=== PATIENT | female | born 1985 | race Caucasian/White ===

== ENCOUNTER → 2016-12-22 | Outpatient (CLI) | payer OTHER ==
--- NOTE | 2016-12-22 19:37 | CT ---
EXAMINATION TYPE: CT chest wo/w con DATE OF EXAM: 12/22/2016 7:19 PM COMPARISON: NONE HISTORY: History of Lupus. Enlarged lymph nodes seen on CXR per patient CT DLP: 473.6 mGycm Automated exposure control for dose reduction was used. CONTRAST: CT scan of the chest is performed with IV Contrast, patient injected with 100 mL of Omnipaque 300. FINDINGS: The lungs are clear of infiltrate. There is no evidence of a pulmonary mass. There is no pleural effu marianela. Heart size is normal. There is no pericardial effusion. There is no mediastinal adenopathy. There are no hilar masses. The bony thorax is intact. There is no pathologic enhancement. I see no axillary ad enopathy. There are no filling defects in the pulmonary arteries. IMPRESSION: Negative CT scan of the chest. No evidence of adenopathy.
== END | disposition home or self-care (01) ==
LOC: RADCTMAIN 18:51
PROVIDERS: ATTEND Family Medicine
DX: R59.0 Localized enlarged lymph nodes (principal)
CPT/HCPCS: 71270; Q9967

== ENCOUNTER 2017-01-20 19:12 | Emergency (ER) | payer OTHER ==
[2017-01-20 19:24] VITALS: RESP 18
[2017-01-20 20:02] LABS: Appearance,Urine Turbid (Clear); Bilirubin,Urine Negative (Negative); Glucose,Urine (UA) Negative (Negative); Ketones,Urine Trace (Negative); Leukocyte Esterase,Urine Large (Negative); Mucus,Urine Many /hpf; Nitrite,Urine Negative (Negative); PH, Urine 5.5 (5.0-8.0); Particle Count 26079; Protein,Urine 2+ (Negative); RBC,Urine >182 /hpf (0-5); UA Billing (MACRO vs. MICRO) MICRO; Urobilinogen,Urine <2.0 mg/dL (<2.0); WBC,Urine >182 /hpf (0-5)
[2017-01-20 20:04] LABS: Specific Gravity,Urine 1.035 (1.001-1.035)
[2017-01-20] MEDS ORDERED: SODIUM CHLORIDE 0.9% 1,000 ML IV ONE (20:07)
[2017-01-20] MEDS ORDERED: ONDANSETRON 4 MG/2 ML VIAL IVP STA (20:08)
[2017-01-20] MEDS ORDERED: MORPHINE SULFATE 2 MG/ML SYRINGE IVP ONE (20:08)
--- NOTE | 2017-01-20 20:15 | ED ---
Female Urogenital HPI - General Chief complaint: Urogenital Stated complaint: abd/back pain, blood in urine Time Seen by Provider: 01/20/17 19:28 Source: patient, RN notes reviewed Mode of arrival: ambulatory Limitations: no limitations - History of Present Illness Initial comments: Patient is a 31-year-old female presents to the emergency room for evaluation of hematuria and dysuria. Patient states she was diagnosed with a urinary tract infection about a month ago and symptoms improved after antibiotics. Patient states that she began having urinary frequency and burning during urination over the past few days. Patient states today she began with blood in her urine. Patient states she's having pain in her bilateral flank area and in her bladder area. Patient denies any fevers or chills. Patient states she feels slightly nauseous. Patient denies history of STDs. Patient denies any abnormal vaginal discharge or discomfort. Patient denies chest pain or shortness of breath. Patient denies headache or dizziness. Last Menstrual Period: 12/30/16 - Related Data Home Medications Medication Instructions Recorded Confirmed Albuterol Inhaler [Ventolin 2 puff INHALATION RT-Q4H PRN 07/20/14 01/20/17 Inhaler] Acetaminophen [Tylenol] 650 mg PO Q6H PRN 01/20/17 01/20/17 Ondansetron [Zofran ODT] 8 mg PO DAILY PRN 01/20/17 01/20/17 Previous Rx's Medication Instructions Recorded Ciprofloxacin HCl [Cipro] 500 mg PO Q12HR 7 Days 01/20/17 Phenazopyridine HCl [Pyridium] 200 mg PO TID PRN #5 tablet 01/20/17 Allergies Allergy/AdvReac Type Severity Reaction Status Date / Time Sulfa (Sulfonamide AdvReac Rash/Hives Verified 01/20/17 19:58 Antibiotics) Review of Systems ROS Statement: Those systems with pertinent positive or pertinent negative responses have been documented in the HPI. ROS Other: All systems not noted in ROS Statement are negative. Past Medical History Past Medical History: Asthma Additional Past Medical History / Comment(s): OB history: She has had 2 spontaneous abortions and 2 c-sections. 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 Limitations: no limitations General appearance: alert, in no apparent distress Head exam: Present: atraumatic, normocephalic, normal inspection Eye exam: Present: normal appearance ENT exam: Present: normal exam Neck exam: Present: normal inspection Respiratory exam: Present: normal lung sounds bilaterally. Absent: respiratory distress Cardiovascular Exam: Present: regular rate, normal rhythm, normal heart sounds GI/Abdominal exam: Present: soft, tenderness (Tenderness on palpation over suprapubic area), normal bowel sounds. Absent: distended, guarding, rebound, rigid Extremities exam: Present: normal inspection Back exam: Present: normal inspection Neurological exam: Present: alert, oriented X3, CN II-XII intact Psychiatric exam: Present: normal affect, normal mood Skin exam: Present: warm, dry, intact, normal color. Absent: rash Course Vital Signs 01/20/17 01/20/17 19:22 22:10 Temperature 98.8 F 98.5 F Pulse Rate 110 H 79 Respiratory 18 18 Rate Blood Pressure 139/90 120/62 O2 Sat by Pulse 99 99 Oximetry Medical Decision Making - Medical Decision Making Patient is a 31-year-old female presents emergency room for evaluation of dysuria. Urinalysis suspicious for urinary tract infection. Patient given 1 g Rocephin while she was here. Patient will be sent home with Cipro and Pyridium as needed. Advised patient to follow-up with primary care provider for reevaluation 24-48 hours. Advised patient to return for worsening symptoms. Patient states she understands everything that was discussed with her. Case discussed with Dr. Walters. - Lab Data Result diagrams: 01/20/17 20:37 01/20/17 20:37 Lab Results 01/20/17 01/20/17 01/20/17 Range/Units 19:50 19:50 20:37 WBC 12.1 H (3.8-10.6) k/uL RBC 4.35 (3.80-5.40) m/uL Hgb 13.2 (11.4-16.0) gm/dL Hct 39.8 (34.0-46.0) % MCV 91.5 (80.0-100.0) fL MCH 30.3 (25.0-35.0) pg MCHC 33.1 (31.0-37.0) g/dL RDW 12.8 (11.5-15.5) % Plt Count 259 (150-450) k/uL Neutrophils % 73 % Lymphocytes % 18 % Monocytes % 3 % Eosinophils % 4 % Basophils % 1 % Neutrophils # 8.9 H (1.3-7.7) k/uL Lymphocytes # 2.1 (1.0-4.8) k/uL Monocytes # 0.4 (0-1.0) k/uL Eosinophils # 0.5 (0-0.7) k/uL Basophils # 0.1 (0-0.2) k/uL Sodium (137-145) mmol/L Potassium (3.5-5.1) mmol/L Chloride (98-107) mmol/L Carbon Dioxide (22-30) mmol/L Anion Gap mmol/L BUN (7-17) mg/dL Creatinine (0.52-1.04) mg/dL Est GFR (MDRD) Af Amer (>60 ml/min/1.73 sqM) Est GFR (MDRD) Non-Af (>60 ml/min/1.73 sqM) Glucose (74-99) mg/dL Calcium (8.4-10.2) mg/dL Total Bilirubin (0.2-1.3) mg/dL AST (14-36) U/L ALT (9-52) U/L Alkaline Phosphatase (38-126) U/L Total Protein (6.3-8.2) g/dL Albumin (3.5-5.0) g/dL Urine Color Dark Brown Urine Appearance Turbid H (Clear) Urine pH 5.5 (5.0-8.0) Ur Specific [place] 1.035 (1.001-1.035) Urine Protein 2+ H (Negative) Urine Glucose (UA) Negative (Negative) Urine Ketones Trace H (Negative) Urine Blood Large H (Negative) Urine Nitrite Negative (Negative) Urine Bilirubin Negative (Negative) Urine Urobilinogen <2.0 (<2.0) mg/dL Ur Leukocyte Esterase Large H (Negative) Urine RBC >182 H (0-5) /hpf Urine WBC >182 H (0-5) /hpf Urine Mucus Many H (None) /hpf Urine HCG, Qual Not Detected (Not Detectd) 01/20/17 Range/Units 20:37 WBC (3.8-10.6) k/uL RBC (3.80-5.40) m/uL Hgb (11.4-16.0) gm/dL Hct (34.0-46.0) % MCV (80.0-100.0) fL MCH (25.0-35.0) pg MCHC (31.0-37.0) g/dL RDW (11.5-15.5) % Plt Count (150-450) k/uL Neutrophils % % Lymphocytes % % Monocytes % % Eosinophils % % Basophils % % Neutrophils # (1.3-7.7) k/uL Lymphocytes # (1.0-4.8) k/uL Monocytes # (0-1.0) k/uL Eosinophils # (0-0.7) k/uL Basophils # (0-0.2) k/uL Sodium 140 (137-145) mmol/L Potassium 3.9 (3.5-5.1) mmol/L Chloride 106 (98-107) mmol/L Carbon Dioxide 25 (22-30) mmol/L Anion Gap 9 mmol/L BUN 14 (7-17) mg/dL Creatinine 0.84 (0.52-1.04) mg/dL Est GFR (MDRD) Af Amer >60 (>60 ml/min/1.73 sqM) Est GFR (MDRD) Non-Af >60 (>60 ml/min/1.73 sqM) Glucose 85 (74-99) mg/dL Calcium 9.8 (8.4-10.2) mg/dL Total Bilirubin 0.5 (0.2-1.3) mg/dL AST 17 (14-36) U/L ALT 16 (9-52) U/L Alkaline Phosphatase 52 (38-126) U/L Total Protein 7.4 (6.3-8.2) g/dL Albumin 4.4 (3.5-5.0) g/dL Urine Color Urine Appearance (Clear) Urine pH (5.0-8.0) Ur Specific [place] (1.001-1.035) Urine Protein (Negative) Urine Glucose (UA) (Negative) Urine Ketones (Negative) Urine Blood (Negative) Urine Nitrite (Negative) Urine Bilirubin (Negative) Urine Urobilinogen (<2.0) mg/dL Ur Leukocyte Esterase (Negative) Urine RBC (0-5) /hpf Urine WBC (0-5) /hpf Urine Mucus (None) /hpf Urine HCG, Qual (Not Detectd) Disposition Clinical Impression: Urinary tract infection Disposition: HOME SELF-CARE Condition: Good Instructions: Urinary Tract Infection in Women (ED) Additional Instructions: Take antibiotics as directed. Take Tylenol or Motrin as needed for pain. Drink plenty of water. Please follow up with primary care provider in 1-2 days. If any new symptom arises or symptoms worsen, return to ER as soon as possible. Prescriptions: Ciprofloxacin HCl [Cipro] 500 mg PO Q12HR 7 Days Phenazopyridine HCl [Pyridium] 200 mg PO TID PRN #5 tablet PRN Reason: Pain Referrals: Rashi Hermosillo DO [Primary Care Provider] - 1-2 days Time of Disposition: 21:23
[2017-01-20 20:46] LABS: Basophils # (A) 0.1 k/uL (0-0.2); Basophils % (A) 1 %; CH 30.2; CHCM 33.1; Eosinophils # (A) 0.5 k/uL (0-0.7); Eosinophils % (A) 4 %; HCT 39.8 % (34.0-46.0); HDW 2.45; HGB 13.2 gm/dL (11.4-16.0); Luc # (Auto) 0.11; Luc % (Auto) 1; Lymphocytes # (A) 2.1 k/uL (1.0-4.8); Lymphocytes % (A) 18 %; MCH 30.3 pg (25.0-35.0); MCHC 33.1 g/dL (31.0-37.0); MCV 91.5 fL (80.0-100.0); Mean Platelet Volume 7.5; Monocytes # (A) 0.4 k/uL (0-1.0); Monocytes % (A) 3 %; Neutrophils # (A) 8.9 k/uL (1.3-7.7); Neutrophils % (A) 73 %; RBC 4.35 m/uL (3.80-5.40); RDW 12.8 % (11.5-15.5); WBC 12.1 k/uL (3.8-10.6); WBC (Perox) 12.05
[2017-01-20 20:58] LABS: ALT 16 U/L (9-52); AST 17 U/L (14-36); Alkaline Phosphatase 52 U/L (38-126); Anion Gap 9 mmol/L; Blood Urea Nitrogen 14 mg/dL (7-17); Calcium 9.8 mg/dL (8.4-10.2); Carbon Dioxide 25 mmol/L (22-30); Chloride 106 mmol/L (98-107); Glucose 85 mg/dL (74-99); Non-African American GFR(MDRD) >60 (>60 ml/min/1.73 sqM); Potassium 3.9 mmol/L (3.5-5.1); Sodium 140 mmol/L (137-145); Total Bilirubin 0.5 mg/dL (0.2-1.3); Total Protein 7.4 g/dL (6.3-8.2)
[2017-01-20] MEDS ORDERED: PHENAZOPYRIDINE 200 MG TAB PO STA (21:24)
[2017-01-20 22:12] VITALS: BP 120/62; PULSE 79; TEMP 98.5
== END 2017-01-20 22:36 | disposition home or self-care (01) ==
LOC: EC 19:12
DX: N39.0 Urinary tract infection, site not specified (principal); R11.0 Nausea; F17.200 Nicotine dependence, unspecified, uncomplicated; Z88.2 Allergy status to sulfonamides
CPT/HCPCS: 99283; 96365; 96375 ×2; 96361; 36415; 80053; 85025; 81001; 81025; J2405; J0696; J2270; 87086

== ENCOUNTER 2017-03-27 14:40 | Emergency (ER) | payer OTHER ==
[2017-03-27] MEDS ORDERED: RX INFO: IV CONTRAST WAS GIVEN 1 EACH MISC MISCELLANE PRN (15:44)
[2017-03-27] MEDS ORDERED: SODIUM CHLORIDE 0.9% 1,000 ML IV STA (15:44)
[2017-03-27] MEDS ORDERED: ORPHENADRINE 30 MG/ML 2 ML VIAL IVP STA (15:45)
[2017-03-27] MEDS ORDERED: HYDROmorphone 1 MG/ML 1 ML SYRINGE IVP STA (15:45)
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
[2017-03-27 16:32] VITALS: RESP 16
[2017-03-27 16:50] LABS: Appearance,Urine Clear (Clear); Bilirubin,Urine Negative (Negative); Glucose,Urine (UA) Negative (Negative); Ketones,Urine Negative (Negative); Leukocyte Esterase,Urine Negative (Negative); Nitrite,Urine Negative (Negative); Protein,Urine Negative (Negative); Specific Gravity,Urine 1.012 (1.001-1.035); UA Billing (MACRO vs. MICRO) CHEM; Urobilinogen,Urine <2.0 mg/dL (<2.0)
[2017-03-27 16:52] LABS: Basophils # (A) 0.1 k/uL (0-0.2); Basophils % (A) 1 %; CH 30.4; CHCM 34.8; Eosinophils # (A) 0.4 k/uL (0-0.7); Eosinophils % (A) 4 %; HCT 39.9 % (34.0-46.0); HDW 2.63; HGB 14.3 gm/dL (11.4-16.0); Luc # (Auto) 0.16; Luc % (Auto) 2; Lymphocytes # (A) 2.5 k/uL (1.0-4.8); Lymphocytes % (A) 28 %; MCH 31.4 pg (25.0-35.0); MCHC 35.9 g/dL (31.0-37.0); MCV 87.6 fL (80.0-100.0); Mean Platelet Volume 7.2; Monocytes # (A) 0.3 k/uL (0-1.0); Monocytes % (A) 3 %; Neutrophils # (A) 5.6 k/uL (1.3-7.7); Neutrophils % (A) 62 %; RBC 4.56 m/uL (3.80-5.40); RDW 12.2 % (11.5-15.5); WBC (Perox) 9.36
[2017-03-27 17:03] LABS: ALT 22 U/L (9-52); AST 18 U/L (14-36); Alkaline Phosphatase 67 U/L (38-126); Anion Gap 12 mmol/L; Blood Urea Nitrogen 12 mg/dL (7-17); Calcium 10.1 mg/dL (8.4-10.2); Carbon Dioxide 22 mmol/L (22-30); Chloride 104 mmol/L (98-107); Glucose 98 mg/dL (74-99); Non-African American GFR(MDRD) >60 (>60 ml/min/1.73 sqM); Potassium 4.2 mmol/L (3.5-5.1); Sodium 138 mmol/L (137-145); Total Bilirubin 0.4 mg/dL (0.2-1.3); Total Protein 7.2 g/dL (6.3-8.2)
--- NOTE | 2017-03-27 17:45 | CT ---
EXAMINATION TYPE: CT abdomen pelvis w con DATE OF EXAM: 03/27/2017 COMPARISON: 01/06/2014 HISTORY: Patient complains of low back pain and nausea. CT DLP: 1073 mGycm Automated exposure control for dose reduction was used. TECHNIQUE: Helical acquisition of images was performed from the lung bases through the pelvis. CONTRAST: Performed without Oral Contrast and with IV Contrast, patient injected with 100 mL of Omnipaque 300. FINDINGS: Lung bases are clear. There is no pleural effusion. Heart size is normal. Liver spleen pancreas gallbladder appear normal. Bile ducts are not dilated. There is no adrenal mass . Kidneys show satisfactory contrast opacification. There is no hydronephrosis. There is no retroperi toneal adenopathy. There is a 4 mm calcification in the upper pole right kidney. There is no sign of a renal mass. I see no intestinal wall thickening. There are no dilated loops. Bladder distends smoothly. Uterus is anteverted. There is no sign of a pelvic mass. Appendix is not seen. There is no sign of appendiciti s. I see no bony destructive process. There is a small umbilical hernia that contains fat. IMPRESSION: THERE IS CLEARING OF 3 CM RIGHT OVARIAN CYST COMPARED TO LAST EXAM. THERE IS A NEW SMALL NONOBSTRUCT ING CALCULUS IN THE UPPER POLE RIGHT KIDNEY. NO SIGN OF ACUTE ABDOMEN AND PELVIS. APPENDIX IS NOT SEE N.
[2017-03-27] MEDS ORDERED: KETOROLAC 60 MG/2 ML VIAL IM STA (17:55)
[2017-03-27 18:17] VITALS: BP 124/88; PULSE 79; TEMP 98.4
== END 2017-03-27 18:19 | disposition home or self-care (01) ==
LOC: EC 14:40
DX: S39.012A Strain of muscle, fascia and tendon of lower back, initial encounter (principal); G89.29 Other chronic pain; R51 Headache; R11.2 Nausea with vomiting, unspecified; F17.200 Nicotine dependence, unspecified, uncomplicated; Z53.29 Procedure and treatment not carried out because of patient's decision for other reasons; Z88.2 Allergy status to sulfonamides; X58.XXXA Exposure to other specified factors, initial encounter
CPT/HCPCS: 36415; 80053; 85025; 81003; 81025; 74177; 99284; 96374; 96375; J2360; J1170; Q9967

== ENCOUNTER → 2017-11-17 | Outpatient (CLI) | payer OTHER ==
--- NOTE | 2017-11-17 12:03 | ECHOS ---
STRESS ECHOCARDIOGRAM INDICATIONS: Chest pain, passed out. MEDICATIONS: Ventolin, Zofran. BASELINE HEART RATE: 96 BASELINE BLOOD PRESSURE: 161/60 MAXIMUM HEART RATE: 172 MAXIMUM BLOOD PRESSURE: 155/82 85% MPHR: 161 100% MPHR: 189 METS: 11.9 MAXIMUM STAGE REACHED: 4 TOTAL EXERCISE TIME: 10:15 CLINICAL INFORMATION: Patient was exercised for a total period of 10 minutes. A peak heart rate of 172 was achieved. Maximum blood pressure 155/82 mmHg was noted. Resting EKG shows normal sinus rhythm with normal OK interval and QRS duration and normal ST-T waves. No ST-segment depression suggestive of ischemia is noted. The baseline echocardiographic images reveals normal left ventricular chamber size with normal left ventricular systolic function. In the immediate post exercise period a normal increase in the wall thickness and contractility is noted. FINAL IMPRESSION: 1. This stress echocardiographic study is negative for stress-induced ischemia. 2. EKG portion of the stress test is not suggestive of ischemia. 3. Patient's exercise tolerance is normal. MMODL / IJN: [id number] /
== END | disposition home or self-care (01) ==
LOC: RADNMMAIN 09:58
PROVIDERS: ATTEND Family Medicine
DX: R55 Syncope and collapse (principal)
CPT/HCPCS: 93017; 93350

== ENCOUNTER 2017-11-29 07:55 | Emergency (ER) | payer OTHER ==
[2017-11-29] MEDS ORDERED: SODIUM CHLORIDE 0.9% 1,000 ML IV STA ×2 (08:11)
[2017-11-29] MEDS ORDERED: METOCLOPRAMIDE 5 MG/ML 2 ML VIAL IVP STA (08:11)
[2017-11-29] MEDS ORDERED: diphenhydrAMINE 50 MG/ML 1 ML VIAL IVP STA (08:11)
[2017-11-29] MEDS ORDERED: PANTOPRAZOLE 40 MG/10 ML VIAL IVP STA (08:12)
--- NOTE | 2017-11-29 08:36 | ED ---
Nausea/Vomiting/Diarrhea HPI - General Chief complaint: Nausea/Vomiting/Diarrhea Stated complaint: EXPOSED TO NOROVIRUS, VOMITING 24 HOURS Time Seen by Provider: 11/29/17 08:04 Source: patient, RN notes reviewed, old records reviewed Mode of arrival: ambulatory Limitations: no limitations - History of Present Illness Initial comments: This patient is a 32-year-old female presents emergency Department stay chief complaint of nausea and vomiting for the past 24 hours. She reports that her facial family has had similar symptoms however she has not been able to tolerate her oral Zofran and is extremely nauseated and weak and dehydrated. Patient reports that she has had history of GERD, she initially related the symptoms as well as to GERD and gastritis. She reports that she is having some minimal right upper quadrant pain and epigastric pain as well. Patient surgical history includes 3 C-sections. No fever or chills. No diarrhea. She really relates that she's had no travel history. - Related Data Home Medications Medication Instructions Recorded Confirmed Albuterol Inhaler [Ventolin 2 puff INHALATION RT-Q4H PRN 07/20/14 11/29/17 Inhaler] Ondansetron [Zofran ODT] 8 mg PO DAILY PRN 01/20/17 11/29/17 Lansoprazole [Prevacid] 30 mg PO DAILY 11/29/17 11/29/17 Previous Rx's Medication Instructions Recorded Metoclopramide [Reglan] 10 mg PO ACHS #12 tab 11/29/17 Allergies Allergy/AdvReac Type Severity Reaction Status Date / Time Sulfa (Sulfonamide AdvReac Rash/Hives Verified 11/29/17 09:34 Antibiotics) Review of Systems ROS Statement: Those systems with pertinent positive or pertinent negative responses have been documented in the HPI. ROS Other: All systems not noted in ROS Statement are negative. Past Medical History Past Medical History: Asthma Additional Past Medical History / Comment(s): OB history: She has had 2 spontaneous abortions and 2 c-sections. 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 No distress. Limitations: no limitations General appearance: alert, in no apparent distress Head exam: Present: atraumatic, normocephalic, normal inspection Eye exam: Present: normal appearance ENT exam: Present: normal exam, mucous membranes moist Neck exam: Present: normal inspection. Absent: tenderness, meningismus, lymphadenopathy Respiratory exam: Present: normal lung sounds bilaterally. Absent: respiratory distress, wheezes, rales, rhonchi, stridor Cardiovascular Exam: Present: regular rate, normal rhythm, normal heart sounds. Absent: systolic murmur, diastolic murmur, rubs, gallop, clicks GI/Abdominal exam: Present: soft, tenderness (Epigastric tenderness), normal bowel sounds. Absent: distended, guarding, rebound, rigid Extremities exam: Present: normal inspection, full ROM, normal capillary refill. Absent: tenderness, pedal edema, joint swelling, calf tenderness Back exam: Present: normal inspection Neurological exam: Present: alert, oriented X3, CN II-XII intact Psychiatric exam: Present: normal affect, normal mood Course Vital Signs 11/29/17 07:59 Temperature 97.5 F L Pulse Rate 104 H Respiratory 18 Rate Blood Pressure 138/84 O2 Sat by Pulse 100 Oximetry Medical Decision Making - Medical Decision Making This patient is a 32-year-old female presents midsternal with 2 days of vomiting. She worsens mild epigastric tenderness. Patient was given IV fluids and lab work obtained. She also reports that her family members had similar symptoms over the past week. At this time patient's lab work was reviewed and are all. She is in Protonix and nausea medication. She reports that she is feeling better after receiving IV fluids. She states that she has no pain at this time. Discussed patient is a viral gastroenteritis. Discussed that she can take nausea medication and have a bland diet. Patient understands treatment plan and return parameters were discussed. - Lab Data Result diagrams: 11/29/17 08:20 11/29/17 08:20 Lab Results 11/29/17 11/29/17 11/29/17 Range/Units 08:20 08:20 08:20 WBC 9.8 (3.8-10.6) k/uL RBC 4.97 (3.80-5.40) m/uL Hgb 14.7 (11.4-16.0) gm/dL Hct 45.0 (34.0-46.0) % MCV 90.6 (80.0-100.0) fL MCH 29.6 (25.0-35.0) pg MCHC 32.6 (31.0-37.0) g/dL RDW 12.2 (11.5-15.5) % Plt Count 275 (150-450) k/uL Neutrophils % 88 % Lymphocytes % 5 % Monocytes % 3 % Eosinophils % 4 % Basophils % 0 % Neutrophils # 8.6 H (1.3-7.7) k/uL Lymphocytes # 0.5 L (1.0-4.8) k/uL Monocytes # 0.3 (0-1.0) k/uL Eosinophils # 0.4 (0-0.7) k/uL Basophils # 0.0 (0-0.2) k/uL Sodium 141 (137-145) mmol/L Potassium 4.2 (3.5-5.1) mmol/L Chloride 106 (98-107) mmol/L Carbon Dioxide 22 (22-30) mmol/L Anion Gap 13 mmol/L BUN 13 (7-17) mg/dL Creatinine 0.74 (0.52-1.04) mg/dL Est GFR (MDRD) Af Amer >60 (>60 ml/min/1.73 sqM) Est GFR (MDRD) Non-Af >60 (>60 ml/min/1.73 sqM) Glucose 99 (74-99) mg/dL Calcium 9.9 (8.4-10.2) mg/dL Total Bilirubin 1.1 (0.2-1.3) mg/dL AST 16 (14-36) U/L ALT 19 (9-52) U/L Alkaline Phosphatase 65 (38-126) U/L Total Protein 7.3 (6.3-8.2) g/dL Albumin 4.5 (3.5-5.0) g/dL Amylase 44 (30-110) U/L Lipase 63 (23-300) U/L Urine Color Yellow Urine Appearance Cloudy H (Clear) Urine pH 7.0 (5.0-8.0) Ur Specific [place] 1.020 (1.001-1.035) Urine Protein Trace H (Negative) Urine Glucose (UA) Negative (Negative) Urine Ketones Negative (Negative) Urine Blood Negative (Negative) Urine Nitrite Negative (Negative) Urine Bilirubin Negative (Negative) Urine Urobilinogen <2.0 (<2.0) mg/dL Ur Leukocyte Esterase Negative (Negative) Urine RBC 1 (0-5) /hpf Urine WBC 2 (0-5) /hpf Ur Squamous Epith Cells 15 H (0-4) /hpf Urine Bacteria Few H (None) /hpf Urine Mucus Occasional H (None) /hpf Urine HCG, Qual (Not Detectd) 11/29/17 Range/Units 08:20 WBC (3.8-10.6) k/uL RBC (3.80-5.40) m/uL Hgb (11.4-16.0) gm/dL Hct (34.0-46.0) % MCV (80.0-100.0) fL MCH (25.0-35.0) pg MCHC (31.0-37.0) g/dL RDW (11.5-15.5) % Plt Count (150-450) k/uL Neutrophils % % Lymphocytes % % Monocytes % % Eosinophils % % Basophils % % Neutrophils # (1.3-7.7) k/uL Lymphocytes # (1.0-4.8) k/uL Monocytes # (0-1.0) k/uL Eosinophils # (0-0.7) k/uL Basophils # (0-0.2) k/uL Sodium (137-145) mmol/L Potassium (3.5-5.1) mmol/L Chloride (98-107) mmol/L Carbon Dioxide (22-30) mmol/L Anion Gap mmol/L BUN (7-17) mg/dL Creatinine (0.52-1.04) mg/dL Est GFR (MDRD) Af Amer (>60 ml/min/1.73 sqM) Est GFR (MDRD) Non-Af (>60 ml/min/1.73 sqM) Glucose (74-99) mg/dL Calcium (8.4-10.2) mg/dL Total Bilirubin (0.2-1.3) mg/dL AST (14-36) U/L ALT (9-52) U/L Alkaline Phosphatase (38-126) U/L Total Protein (6.3-8.2) g/dL Albumin (3.5-5.0) g/dL Amylase (30-110) U/L Lipase (23-300) U/L Urine Color Urine Appearance (Clear) Urine pH (5.0-8.0) Ur Specific [place] (1.001-1.035) Urine Protein (Negative) Urine Glucose (UA) (Negative) Urine Ketones (Negative) Urine Blood (Negative) Urine Nitrite (Negative) Urine Bilirubin (Negative) Urine Urobilinogen (<2.0) mg/dL Ur Leukocyte Esterase (Negative) Urine RBC (0-5) /hpf Urine WBC (0-5) /hpf Ur Squamous Epith Cells (0-4) /hpf Urine Bacteria (None) /hpf Urine Mucus (None) /hpf Urine HCG, Qual Not Detected (Not Detectd) Disposition Clinical Impression: Gastroenteritis, Dehydration Disposition: HOME SELF-CARE Condition: Good Instructions: Acute Nausea and Vomiting (ED) Additional Instructions: Patient advised to have a bland diet for the next 24 hours. Sickle bananas, rice, applesauce and toast. Patient should encourage fluid intake. Return to the emergency department if any alarming signs or symptoms occur. Prescriptions: Metoclopramide [Reglan] 10 mg PO ACHS #12 tab Referrals: Rashi Hermosillo DO [Primary Care Provider] - 1-2 days Time of Disposition: 10:22
[2017-11-29 08:37] LABS: Basophils % (A) 0 %; Eosinophils # (A) 0.4 k/uL (0-0.7); Eosinophils % (A) 4 %; HGB 14.7 gm/dL (11.4-16.0); Lymphocytes # (A) 0.5 k/uL (1.0-4.8); Lymphocytes % (A) 5 %; MCH 29.6 pg (25.0-35.0); MCHC 32.6 g/dL (31.0-37.0); MCV 90.6 fL (80.0-100.0); Mean Platelet Volume 7.5; Monocytes # (A) 0.3 k/uL (0-1.0); Monocytes % (A) 3 %; Neutrophils # (A) 8.6 k/uL (1.3-7.7); Neutrophils % (A) 88 %; Platelet Count 275 k/uL (150-450); RBC 4.97 m/uL (3.80-5.40); RDW 12.2 % (11.5-15.5); WBC 9.8 k/uL (3.8-10.6)
[2017-11-29 08:39] LABS: Appearance,Urine Cloudy (Clear); Bacteria,Urine Few /hpf; Bilirubin,Urine Negative (Negative); Blood,Urine Negative (Negative); Color,Urine Yellow; Glucose,Urine (UA) Negative (Negative); Ketones,Urine Negative (Negative); Leukocyte Esterase,Urine Negative (Negative); Mucus,Urine Occasional /hpf; Protein,Urine Trace (Negative); RBC,Urine 1 /hpf (0-5); Squamous Epithelial Cell,Urine 15 /hpf (0-4); Urobilinogen,Urine <2.0 mg/dL (<2.0); WBC,Urine 2 /hpf (0-5)
[2017-11-29 08:42] LABS: ALT 19 U/L (9-52); AST 16 U/L (14-36); Albumin 4.5 g/dL (3.5-5.0); Alkaline Phosphatase 65 U/L (38-126); Amylase 44 U/L (30-110); Anion Gap 13 mmol/L; Blood Urea Nitrogen 13 mg/dL (7-17); Calcium 9.9 mg/dL (8.4-10.2); Carbon Dioxide 22 mmol/L (22-30); Chloride 106 mmol/L (98-107); Glucose 99 mg/dL (74-99); Lipase 63 U/L (23-300); Potassium 4.2 mmol/L (3.5-5.1); Sodium 141 mmol/L (137-145); Total Bilirubin 1.1 mg/dL (0.2-1.3); Total Protein 7.3 g/dL (6.3-8.2)
[2017-11-29] MEDS ORDERED: SODIUM CHLORIDE 0.9% 500 ML IV ONE (09:34)
--- NOTE | 2017-11-29 10:14 | XR ---
EXAMINATION TYPE: XR KUB DATE OF EXAM: 11/29/2017 COMPARISON: NONE INDICATION: Pain vomiting TECHNIQUE: Single view abdomen upright view 2 images FINDINGS: There is a normal bowel gas pattern. No suspicious air-fluid levels or differential air-fluid levels are present. No free air under diaphr agms is evident. Some fecal debris is in the proximal descending colon. Psoas margins are normal. No organomegaly is present. IMPRESSION: 1. Unremarkable Abdomen
[2017-11-29 10:36] VITALS: BP 128/68; PULSE 90; RESP 16; TEMP 97.9
== END 2017-11-29 10:35 | disposition home or self-care (01) ==
LOC: EC 07:55
DX: K52.9 Noninfective gastroenteritis and colitis, unspecified (principal); E86.0 Dehydration; F17.200 Nicotine dependence, unspecified, uncomplicated; Z86.14 Personal history of Methicillin resistant Staphylococcus aureus infection; Z79.899 Other long term (current) drug therapy; Z88.2 Allergy status to sulfonamides
CPT/HCPCS: 36415; 80053; 82150; 83690; 85025; 81001; 81025; 74018; 99284; 96374; 96375 ×2; 96361 ×2; J1200; J2765; C9113

== ENCOUNTER 2018-02-04 12:01 | Day surgery (SDC) | payer OTHER ==
[2018-02-02 12:39] VITALS: BMI 25.8
--- NOTE | 2018-02-03 21:12 | P.GSHP ---
History of Present Illness H&P Date: 02/04/18 CHIEF COMPLAINT: Cholecystitis HISTORY OF PRESENT ILLNESS: The patient is a 32-year-old female who presents with history of epigastric including right upper quadrant abdominal pain. She underwent diagnostic studies for her gallbladder. Separately her clinical picture was consistent with cholecystitis. Now she presents for surgical intervention. PAST MEDICAL HISTORY: Please see list PAST SURGICAL HISTORY: Please see list MEDICATIONS: Please see list ALLERGIES: See list. SOCIAL HISTORY: Recent tobacco use FAMILY HISTORY: Pertinent for gallbladder disease REVIEW OF ORGAN SYSTEMS: CONSTITUTIONAL: No reports of fevers or chills. HEENT: Denies any troubles with the vision or hearing. PHYSICAL EXAM: VITAL SIGNS: Afebrile vital signs stable GENERAL: Well-developed pleasant in no acute distress. HEENT: No scleral icterus. Extraocular movements grossly intact. Moist buccal mucosa. NECK: Supple without lymphadenopathy. CHEST: Unlabored respirations. Equal bilateral excursions. CARDIOVASCULAR: Regular rate regular rhythm rhythm. Distal 2+ pulses. ABDOMEN: Soft, nondistended. Tender along the epigastrium and right upper quadrant. MUSCULOSKELETAL: No clubbing, cyanosis, or edema. NEURO: Cranial nerves II to XII within normal limits. No focal or lateralizing signs. PSYCH: Alert and oriented to person, place and time. ASSESSMENT: 1. Epigastric and right upper quadrant abdominal pain 2. Chronic cholecystitis PLAN: 1. Will need a robotic cholecystectomy possible open. Benefits and risks were described. 2. Heparin for DVT prophylaxis 5000 units. 3. Antibiotic prophylaxis. Past Medical History Past Medical History: Asthma, Fibromyalgia, Osteoarthritis (OA), Syncope Additional Past Medical History / Comment(s): sjogren's, past hx. ulcer, chronic nausea, chest pain recently-wore heart monitor- felt related to gallbladder issue, had fainting episode last night-gets very nauseated,shaky- thinks from pain History of Any Multi-Drug Resistant Organisms: MRSA Date of last positivie culture/infection: 2009 2010 MDRO Source:: lower left abdomen and left forearm Past Surgical History: Section Additional Past Surgical History / Comment(s): C/Sx3, EGD, colonoscopy Past Anesthesia/Blood Transfusion Reactions: No Reported Reaction Smoking Status: Current some day smoker - Past Family History Sister(s) Family Medical History: Asthma Medications and Allergies Home Medications Medication Instructions Recorded Confirmed Type Albuterol Inhaler [Ventolin 2 puff INHALATION RT-Q4H PRN 07/20/14 02/02/18 History Inhaler] Ondansetron [Zofran ODT] 8 mg PO DAILY PRN 01/20/17 02/02/18 History Loratadine [Claritin] 10 mg PO DAILY 02/02/18 02/02/18 History Sertraline [Zoloft] 50 mg PO DAILY 02/02/18 02/02/18 History traMADol HCL [Ultram] 50 mg PO Q6HR PRN 02/02/18 02/02/18 History Allergies Allergy/AdvReac Type Severity Reaction Status Date / Time Sulfa (Sulfonamide AdvReac Rash/Hives Verified 02/02/18 12:31 Antibiotics)
[~2018-02-04 12:01] MED LIST: ACETAMINOPHEN IV (For NPO) 1,000 MG in EMPTY BAG 1 BAG IVPB ONE; DEXAMETHASONE SOD PHOSPHATE 10 MG/ML 1 ML VIAL IV ONE; HEPARIN SODIUM,PORCINE 5,000 UNIT/ML 1 ML VIAL SQ ONE; INDOCYANINE GREEN 25 MG VIAL IV STA; MIDAZOLAM 2 MG/2 ML VIAL IV PRN; MORPHINE SULFATE 4 MG/ML SYRINGE IV PRN; ONDANSETRON ODT 4 MG TAB PO ONE; ceFAZolin IN SWFI 2 GM/20 ML SYRINGE IVP ONE
[2018-02-04] MEDS: LACTATED RINGERS 1,000 ML IV SCH (13:02)
[2018-02-04] MEDS ORDERED: LIDOCAINE 1% 20 ML VIAL (10MG/ML) FOR IV START INTRADERMA ONE ×2 (13:08→13:23)
[2018-02-04] MEDS ORDERED: ONDANSETRON 4 MG/2 ML VIAL IVP ONE ×2 (13:09→14:57)
[2018-02-04] MEDS ORDERED: LIDOCAINE 1% INJ 10MG/ML (20 ML MDV) ONE (13:30)
[2018-02-04] MEDS ORDERED: PHENYLEPHRINE-0.9% NACL SYG 1 MG/10 ML SYRINGE ONE (13:30)
[2018-02-04] MEDS ORDERED: GLYCOPYRROLATE 0.2 MG/ML 2 ML VIAL ONE (13:30)
[2018-02-04] MEDS ORDERED: ROCURONIUM BROMIDE 10 MG/ML 10 ML VIAL IV ONE (13:30)
[2018-02-04] MEDS ORDERED: fentaNYL (PF) 50 MCG/ML 2 ML AMP ONE (13:30)
[2018-02-04] MEDS ORDERED: INDOCYANINE GREEN 25 MG VIAL IV ONE (13:30)
[2018-02-04] MEDS ORDERED: PROPOFOL 10 MG/ML 20 ML VIAL IV ONE (13:30)
[2018-02-04] MEDS ORDERED: MIDAZOLAM 2 MG/2 ML VIAL ONE (13:30)
[2018-02-04] MEDS ORDERED: SUCCINYLCHOLINE CHLORIDE 100 MG/5 ML SYR IV ONE (13:30)
[2018-02-04] MEDS ORDERED: NEOSTIGMINE 1 MG/ML 10 ML VIAL ONE (13:30)
[2018-02-04] MEDS ORDERED: BUPIVACAINE (PF) 0.25% 30 ML VIAL SQ ONE (13:57)
--- NOTE | 2018-02-04 14:36 | P.OP ---
Date of Procedure: 02/04/18 Description of Procedure: SURGEON: PETE HERNANDEZ MD REFRIGERATION TECHNICIAN: VON WAHL PREOPERATIVE DIAGNOSES: 1. Chronic cholecystitis. 2. Family history of gallbladder disease. 3. History of tobacco abuse 4. Gastroesophageal reflux disease POSTOPERATIVE DIAGNOSES: 1. Chronic cholecystitis. 2. Family history of gallbladder disease. 3. History of tobacco abuse 4. Gastroesophageal reflux disease OPERATION: 1. Robotic-assisted da Hima Xi laparoscopic cholecystectomy, multiport with FIREFLY 2. Intraoperative EGD with cold biopsy (please see separate operative report) ESTIMATED BLOOD LOSS: 5 mL. SPECIMENS REMOVED: Gallbladder and antrum COMPLICATIONS: None. OPERATIVE FINDINGS: 1. Chronic cholecystitis 2. Fatty liver disease with hepatomegaly. INDICATIONS: The patient is a 41-year-old female who presents with chronic cholelcystitis. Surgical intervention with a laparoscopic cholecystectomy was described at length including injury to the biliary tree, bleeding, infection, need for further surgery. Informed consent was obtained. Robotic assisted laparoscopic approach was described. Benefits and risks of the procedure including but not limited to bleeding, infection, injury to the biliary tree was described. Informed consent was obtained. DESCRIPTION OF PROCEDURE: Patient was brought to the operating room, placed in supine position. After general induction, the abdomen had been prepped and draped in standard sterile fashion. The robotic da Hima XI system was primed. After a timeout protocol was performed, the patient had been prepped and draped in standard sterile fashion. The patient was injected with indocyanine green. The robot was docked along the left lateral abdomen. The patient was repositioned in reverse Trendelenburg position. Please note prior to docking of the robot; however, a 5 mm 0 degrees laparoscopic trocar entry was performed along the left upper quadrant. Next, two 8 mm robotic ports were placed along the right upper abdomen. The camera 8-mm port was maintained along the epigastrium. Another 8 mm port was placed along the left upper abdominal wall after exchanging the 5 mm port. Please note that the ports were placed at least 10 to 15 cm away from the target anatomy of the gallbladder. Using a grasper for arm 3, a grasper for arm 2, including hook cautery for arm 1 , the robotic system was docked and primed as described. Instruments were interchanged by the clinic office assistant including hook cautery, Bovie cautery scissors and clip appliers. I had sat at the console. Adhesions were identified along the infundibulum of the gallbladder and addressed using hook cautery. The gallbladder fundus was retracted over the dome of the liver. Initial attention was brought to the infundibulum which was gently retracted in the inferior lateral approach. Using a grasper, the cystic duct including the cystic artery was carefully skeletonized. FIREFLY was used to identify the cystic artery and cystic structures. Using a clip efficiency expert 2 large PLASTIC clips were placed proximally, and 1 clip was placed distally along the cystic duct and then cauterized with the cautery. Again care was taken to avoid any injury to the biliary tree as the common bile duct was clearly visualized during this portion of dissection. Next, the cystic artery was cauterized after 2 large PLASTIC clips were placed. Electro-Bovie cautery was used to remove the gallbladder from the hepatic fossa. Hemostasis was checked and found to be adequate. The robot was undocked. I re-scrubbed into the case. Using a 10 mm Endo Catch bag via the left upper quadrant incision, the specimen was removed from the abdominal cavity. All pneumoperitoneum instruments were evacuated from the abdominal cavity. The incisions were reapproximated using 4-0 Monocryl in an interrupted subcuticular fashion. Fascial defect was less than 8 mm in size. Please note along the trocar sites, local anesthetic was placed as a field block prior to insertion of all instruments. Dermabond was applied to the skin. At the end of the procedure needle, sponge, and instrument count had been verified correct by the hazardous materials waste technician. The patient was transferred to postanesthesia care unit in stable condition. Intraoperative films were shared with the patient's family who were very pleased with the level of care. Console time 10 minutes Plan - Discharge Summary New Discharge Prescriptions: No Action Albuterol Inhaler [Ventolin Inhaler] 2 puff INHALATION RT-Q4H PRN PRN Reason: Shortness Of Breath Ondansetron [Zofran ODT] 8 mg PO DAILY PRN PRN Reason: Nausea traMADol HCL [Ultram] 50 mg PO Q6HR PRN PRN Reason: Pain Sertraline [Zoloft] 50 mg PO DAILY Loratadine [Claritin] 10 mg PO DAILY Discharge Medication List Albuterol Inhaler [Ventolin Inhaler] 2 puff INHALATION RT-Q4H PRN 07/20/14 [ History] Ondansetron [Zofran ODT] 8 mg PO DAILY PRN 01/20/17 [History] Loratadine [Claritin] 10 mg PO DAILY 02/02/18 [History] Sertraline [Zoloft] 50 mg PO DAILY 02/02/18 [History] traMADol HCL [Ultram] 50 mg PO Q6HR PRN 02/02/18 [History]
--- NOTE | 2018-02-04 14:38 | P.PCN ---
Date of Procedure: 02/04/18 Description of Procedure: PREOPERATIVE DIAGNOSIS: Gastroesophageal reflux disease. POSTOPERATIVE DIAGNOSIS: Gastritis. Gastroesophageal reflux disease. OPERATION: Esophagogastroduodenoscopy with biopsies along antrum. SURGEON: Juli Dumont MD ANESTHESIA: MAC. INDICATIONS: The patient is a 32-year-old female who presents with a history of reflux disease. Benefits and risks of the procedure were described. Informed consent was obtained. DESCRIPTION: The patient was brought into the endoscopy suite and laid in the left lateral decubitus position. An Olympus gastroscope was passed along the posterior oropharynx down to the distal esophagus where the squamocolumnar junction was encountered at 40 cm from the incisors. The stomach was entered and no bile reflux was found. Additional findings are listed below. Biopsies with cold forceps were obtained of the antrum. The first through third portion of the duodenum was examined and unremarkable. Retroflexion of the scope confirmed Hill grade 3 lower esophageal valve. The squamocolumnar junction demostrated no acute LA grade A erosive esophagitis. The stomach was desufflated. The patient tolerated the procedure well. FINDINGS: Squamocolumnar junction 40 cm from the incisors. Diaphragmatic hiatus at 40 cm. Hill grade 3 lower esophageal valve. No LA grade A erosive esophagitis. Superficial gastritis No active duodenitis. RECOMMENDATIONS: Further recommendations pending results of pathology report. Upper endoscopy as needed.
[2018-02-04 14:51] VITALS: TEMP 97.2
[2018-02-04] MEDS ORDERED: fentaNYL (PF) 50 MCG/ML 2 ML AMP IV ONE (14:56)
[2018-02-04] MEDS ORDERED: METOCLOPRAMIDE 5 MG/ML 2 ML VIAL IVP ONE (15:22)
[2018-02-04] MEDS ORDERED: fentaNYL (PF) 50 MCG/ML 2 ML AMP IVP ONE (15:22)
[2018-02-04] MEDS ORDERED: diphenhydrAMINE 50 MG/ML 1 ML VIAL IVP ONE (15:25)
[2018-02-04] MEDS ORDERED: PROMETHAZINE INJ 25 MG/ML 1 ML VIAL IVPB ONE (15:31)
[2018-02-04] MEDS ORDERED: HYDROcodone/APAP 5-325MG 1 EACH TAB PO ONE (16:08)
[2018-02-04 16:36] VITALS: BP 112/76; PULSE 69; RESP 18
== END 2018-02-04 17:44 | disposition home or self-care (01) ==
LOC: OR 12:01
PROVIDERS: ATTEND Surgery Plastic and Reconstructive Surgery
DX: K80.10 Calculus of gallbladder with chronic cholecystitis without obstruction (principal); K29.50 Unspecified chronic gastritis without bleeding; J45.909 Unspecified asthma, uncomplicated; F17.210 Nicotine dependence, cigarettes, uncomplicated; K44.9 Diaphragmatic hernia without obstruction or gangrene; M79.7 Fibromyalgia; K76.0 Fatty (change of) liver, not elsewhere classified; R16.0 Hepatomegaly, not elsewhere classified; K21.9 Gastro-esophageal reflux disease without esophagitis; M19.90 Unspecified osteoarthritis, unspecified site; Z86.14 Personal history of Methicillin resistant Staphylococcus aureus infection; Z88.2 Allergy status to sulfonamides; Z79.899 Other long term (current) drug therapy; Z88.8 Allergy status to other drugs, medicaments and biological substances; Z83.79 Family history of other diseases of the digestive system; Z82.5 Family history of asthma and other chronic lower respiratory diseases
CPT/HCPCS: 81025; 88304; 88305; 47562; 43239; J2250; J1200; J1644; J1100; J2550; J2710; J2765; J2405; J2001; J3010; J0131; J2370; J0330; J2704; J0690

== ENCOUNTER → 2018-03-11 | Outpatient (CLI) | payer OTHER | END | disposition home or self-care (01) | LOC: LABWHC1 16:31 | PROVIDERS: ATTEND Surgery Plastic and Reconstructive Surgery | DX: E83.42 Hypomagnesemia (principal); E53.8 Deficiency of other specified B group vitamins; G62.9 Polyneuropathy, unspecified | CPT/HCPCS: 36415; 83735; 84425 ==

== ENCOUNTER → 2018-05-06 | Day surgery (SDC) | payer OTHER ==
[2018-05-03 10:36] VITALS: BMI 25.0
[~2018-05-06] MED LIST changes: -ACETAMINOPHEN IV (For NPO) 1,000 MG in EMPTY BAG 1 BAG IVPB ONE; -DEXAMETHASONE SOD PHOSPHATE 10 MG/ML 1 ML VIAL IV ONE; -HEPARIN SODIUM,PORCINE 5,000 UNIT/ML 1 ML VIAL SQ ONE; -INDOCYANINE GREEN 25 MG VIAL IV STA; -MIDAZOLAM 2 MG/2 ML VIAL IV PRN; -MORPHINE SULFATE 4 MG/ML SYRINGE IV PRN; -ONDANSETRON ODT 4 MG TAB PO ONE; +SODIUM CHLORIDE 0.9% 1,000 ML IV SCH; -ceFAZolin IN SWFI 2 GM/20 ML SYRINGE IVP ONE
[2018-05-06 10:30] VITALS: RESP 18; TEMP 98.2
[2018-05-06 12:30] VITALS: BP 138/76; PULSE 82
--- NOTE | 2018-05-06 13:11 | P.PCN ---
Preoperative Diagnosis: Indication Recurrent presyncope and syncope Baseline 12-lead ECG shows sinus rhythm normal [place] narrow QRS normal ST segments normal QT interval Tilt table test per protocol Baseline heart rate 70 beats a minute Baseline blood pressure 135/93 mmHg Patient underwent tilt table test per protocol. There was no skin change in her heart rate blood pressure. He did not experience any presyncopal or syncopal spells. She was laid supine at the end of the procedure Impression Normal heart rate and blood pressure response to upright tilting Normal baseline 12-lead ECG Disposition: same day
== END | disposition home or self-care (01) ==
LOC: CATHEP 10:05
PROVIDERS: ATTEND Internal Medicine Clinical Cardiac Electrophysiology
DX: R55 Syncope and collapse (principal); R07.2 Precordial pain; Z88.2 Allergy status to sulfonamides; Z79.899 Other long term (current) drug therapy
CPT/HCPCS: 93660

== ENCOUNTER → 2018-07-07 | Outpatient (CLI) | payer OTHER ==
--- NOTE | 2018-07-07 11:05 | CT ---
EXAMINATION TYPE: CT abdomen wo con DATE OF EXAM: 07/07/2018 COMPARISON: Prior CT 03/27/2017 HISTORY: URQ pain, back pain hx renal stones CT DLP: 205.30 mGycm Automated exposure control for dose reduction was used. TECHNIQUE: Helical acquisition of images was performed from the lung bases through the top of iliac crest to include entire abdomen. CONTRAST: Performed without Oral Contrast and without IV contrast. FINDINGS: Lack of intravenous contrast could compromise sensitivity. Small umbilical hernia contains fat. LUNG BASES: No significant abnormality is appreciated. LIVER/GB: Liver is enlarged. Gallbladder is absent. High dense material in the gallbladder fossa pia on likely postoperative. PANCREAS: No significant abnormality is seen. SPLEEN: No significant abnormality is seen. ADRENALS: No significant abnormality is seen. KIDNEYS: Some mild pelvic caliectasis present in the right kidney. There is a nonobstructive focus of calcification in the upper pole as on prior exam measuring approximately 3 mm. BOWEL: No significant abnormality is seen. LYMPH NODES: No significant abnormality is appreciated. OSSEOUS STRUCTURES: No significant abnormality is seen. FREE AIR: No Free Air visible ASCITES: None visible. RETROPERITONEAL ADENOPATHY: No Retroperitoneal Adenopathy visible. IMPRESSION: NONCONTRAST EXAM. NONOBSTRUCTIVE RIGHT RENAL CALCULUS IS STABLE. MILD PELVIC CALIECTASIS THOUGHT TO B E CHRONIC WITHIN THE RIGHT KIDNEY, CANNOT EXCLUDE DISTAL URETERAL CALCULUS. SMALL UMBILICAL HERNIA. P OSTOP CHANGE.
== END | disposition home or self-care (01) ==
LOC: RADCTMAIN 08:22
PROVIDERS: ATTEND Family Medicine
DX: N20.0 Calculus of kidney (principal); N28.89 Other specified disorders of kidney and ureter; Z98.890 Other specified postprocedural states
CPT/HCPCS: 74150

== ENCOUNTER 2018-08-04 12:21 | Emergency (ER) | payer OTHER ==
[2018-08-04] MEDS ORDERED: SODIUM CHLORIDE 0.9% 1,000 ML IV STA (12:48)
--- NOTE | 2018-08-04 12:51 | ED ---
General Adult HPI - General Chief complaint: Urogenital Stated complaint: poss UTI Time Seen by Provider: 08/04/18 12:31 Source: patient, RN notes reviewed Mode of arrival: ambulatory Limitations: no limitations - History of Present Illness Initial comments: Patient 33-year-old female presenting to the emergency room today with chief complaint possible urinary tract infection. Patient does not that she's had abdominal pain off and on over the last few weeks. Admits that she's had diarrhea for the past 2 weeks. Denies any signs of blood in the stool. Patient wasn't feeling nauseated at times. Does admit some upper abdominal pain. She states that she had her gallbladder taken out in January 2018 and does reminder somewhat of this. Admits to increased urinary frequency. She denies any other complaints or symptoms currently. Patient denies any recent fever, chills, shortness of breath, chest pain, back pain, numbness or tingling, dysuria or hematuria, constipation or diarrhea, headaches or visual changes, or any other complaints. - Related Data Home Medications Medication Instructions Recorded Confirmed Albuterol Inhaler [Ventolin 2 puff INHALATION RT-Q4H PRN 07/20/14 08/04/18 Inhaler] Ondansetron [Zofran ODT] 8 mg PO DAILY PRN 01/20/17 08/04/18 Sertraline [Zoloft] 100 mg PO DAILY 08/04/18 08/04/18 Allergies Allergy/AdvReac Type Severity Reaction Status Date / Time Sulfa (Sulfonamide AdvReac Rash/Hives Verified 08/04/18 12:41 Antibiotics) Review of Systems ROS Statement: Those systems with pertinent positive or pertinent negative responses have been documented in the HPI. ROS Other: All systems not noted in ROS Statement are negative. Past Medical History Past Medical History: Asthma, Fibromyalgia, Osteoarthritis (OA), Syncope Additional Past Medical History / Comment(s): See Dr Babcock H&P, sjogren's syndrome, past hx. ulcer, chronic nausea, kidney stones History of Any Multi-Drug Resistant Organisms: MRSA Date of last positivie culture/infection: 2010 MDRO Source:: left forearm Past Surgical History: Section, Cholecystectomy Additional Past Surgical History / Comment(s): C/Sx3, EGD, colonoscopy, tubes tied Past Anesthesia/Blood Transfusion Reactions: No Reported Reaction Past Psychological History: Anxiety, Depression Smoking Status: Current every day smoker Past Alcohol Use History: Occasional Past Drug Use History: None Reported - Past Family History Sister(s) Family Medical History: Asthma General Exam - General Exam Comments Initial Comments: General: The patient is awake and alert, in no distress, and does not appear acutely ill. Eye: There is normal conjunctiva bilaterally. No signs of icterus. Ears, nose, mouth and throat: There are moist mucous membranes and no oral lesions. Neck: The neck is supple, there is no tenderness or JVD. Cardiovascular: There is a regular rate and rhythm. No murmur, rub or gallop is appreciated. Respiratory: Lungs are clear to auscultation, respirations are non-labored, breath sounds are equal. No wheezes, stridor, rales, or rhonchi. Gastrointestinal: Abdomen soft on palpation. Patient does have tenderness epigastric, right and left upper quadrants. No rebound, guarding or CVA tenderness. Musculoskeletal: Normal ROM, no tenderness. Sensation intact. Strength 5/5. Pulses equal bilaterally 2+. Neurological: A&O x 3. CN II-XII intact, There are no obvious motor or sensory deficits. Coordination appears grossly intact. Speech is normal. Skin: Skin is warm and dry and no rashes or lesions are noted. Psychiatric: Cooperative, appropriate mood & affect, normal judgment. : [employer] Malhotra present for exam. Patient does have small amount of white discharge in the vaginal vault. Mildly tender with bimanual exam. Limitations: no limitations Course Vital Signs 08/04/18 08/04/18 08/04/18 12:36 13:00 13:30 Temperature 98.7 F Pulse Rate 109 H Respiratory 17 Rate Blood Pressure 144/101 158/118 158/118 O2 Sat by Pulse 100 Oximetry 08/04/18 08/04/18 13:42 14:00 Temperature Pulse Rate 97 Respiratory 18 Rate Blood Pressure 141/99 141/99 O2 Sat by Pulse 99 Oximetry Medical Decision Making - Medical Decision Making Patient's labs been reviewed does show 14,000 white count. Patient has had diarrheal past 2 weeks. Denies any travel or any recent antibiotic use. She does admit to approximately 3 episodes per day. Denies signs blood. Patient abdomen is soft on palpation. Does admit that she had a recent CAT scan within the last month. Was discussed about CT today but she has declined risk and benefits of radiation exposure were discussed with the patient. Pelvic exam was performed that shows some white drainage. Patient does have concern for STDs and would like to be treated. She was given dose of Rocephin and azithromycin here the emergency room. Cultures are pending. Patient will be discharged home per she has Bentyl and Compazine at home that she can use for symptoms. She is advised follow-up family doctor/GI the symptoms persist. - Lab Data Result diagrams: 08/04/18 13:16 08/04/18 13:16 Lab Results 08/04/18 08/04/18 08/04/18 Range/Units 13:16 13:16 13:16 WBC 14.5 H (3.8-10.6) k/uL RBC 4.99 (3.80-5.40) m/uL Hgb 15.4 (11.4-16.0) gm/dL Hct 45.3 (34.0-46.0) % MCV 90.7 (80.0-100.0) fL MCH 30.9 (25.0-35.0) pg MCHC 34.1 (31.0-37.0) g/dL RDW 12.7 (11.5-15.5) % Plt Count 288 (150-450) k/uL Neutrophils % 78 % Lymphocytes % 15 % Monocytes % 4 % Eosinophils % 3 % Basophils % 0 % Neutrophils # 11.3 H (1.3-7.7) k/uL Lymphocytes # 2.1 (1.0-4.8) k/uL Monocytes # 0.5 (0-1.0) k/uL Eosinophils # 0.4 (0-0.7) k/uL Basophils # 0.1 (0-0.2) k/uL Sodium 139 (137-145) mmol/L Potassium 4.3 (3.5-5.1) mmol/L Chloride 105 (98-107) mmol/L Carbon Dioxide 21 L (22-30) mmol/L Anion Gap 13 mmol/L BUN 12 (7-17) mg/dL Creatinine 0.76 (0.52-1.04) mg/dL Est GFR (CKD-EPI)AfAm >90 (>60 ml/min/1.73 sqM) Est GFR (CKD-EPI)NonAf >90 (>60 ml/min/1.73 sqM) Glucose 98 (74-99) mg/dL Calcium 10.1 (8.4-10.2) mg/dL Total Bilirubin 0.6 (0.2-1.3) mg/dL AST 23 (14-36) U/L ALT 14 (9-52) U/L Alkaline Phosphatase 81 (38-126) U/L Total Protein 8.4 H (6.3-8.2) g/dL Albumin 4.9 (3.5-5.0) g/dL Amylase 64 (30-110) U/L Lipase 68 (23-300) U/L Urine Color Urine Appearance (Clear) Urine pH (5.0-8.0) Ur Specific [place] (1.001-1.035) Urine Protein (Negative) Urine Glucose (UA) (Negative) Urine Ketones (Negative) Urine Blood (Negative) Urine Nitrite (Negative) Urine Bilirubin (Negative) Urine Urobilinogen (<2.0) mg/dL Ur Leukocyte Esterase (Negative) Urine HCG, Qual Not Detected (Not Detectd) 08/04/18 Range/Units 13:16 WBC (3.8-10.6) k/uL RBC (3.80-5.40) m/uL Hgb (11.4-16.0) gm/dL Hct (34.0-46.0) % MCV (80.0-100.0) fL MCH (25.0-35.0) pg MCHC (31.0-37.0) g/dL RDW (11.5-15.5) % Plt Count (150-450) k/uL Neutrophils % % Lymphocytes % % Monocytes % % Eosinophils % % Basophils % % Neutrophils # (1.3-7.7) k/uL Lymphocytes # (1.0-4.8) k/uL Monocytes # (0-1.0) k/uL Eosinophils # (0-0.7) k/uL Basophils # (0-0.2) k/uL Sodium (137-145) mmol/L Potassium (3.5-5.1) mmol/L Chloride (98-107) mmol/L Carbon Dioxide (22-30) mmol/L Anion Gap mmol/L BUN (7-17) mg/dL Creatinine (0.52-1.04) mg/dL Est GFR (CKD-EPI)AfAm (>60 ml/min/1.73 sqM) Est GFR (CKD-EPI)NonAf (>60 ml/min/1.73 sqM) Glucose (74-99) mg/dL Calcium (8.4-10.2) mg/dL Total Bilirubin (0.2-1.3) mg/dL AST (14-36) U/L ALT (9-52) U/L Alkaline Phosphatase (38-126) U/L Total Protein (6.3-8.2) g/dL Albumin (3.5-5.0) g/dL Amylase (30-110) U/L Lipase (23-300) U/L Urine Color Light Yellow Urine Appearance Clear (Clear) Urine pH 6.0 (5.0-8.0) Ur Specific [place] 1.005 (1.001-1.035) Urine Protein Negative (Negative) Urine Glucose (UA) Negative (Negative) Urine Ketones Negative (Negative) Urine Blood Negative (Negative) Urine Nitrite Negative (Negative) Urine Bilirubin Negative (Negative) Urine Urobilinogen <2.0 (<2.0) mg/dL Ur Leukocyte Esterase Negative (Negative) Urine HCG, Qual (Not Detectd) Disposition Clinical Impression: Abdominal pain, Acute diarrhea Disposition: HOME SELF-CARE Condition: Good Instructions: Abdominal Pain (ED) Additional Instructions: Please use medication as discussed. Please follow-up with GI/family doctor in the next 2 days of symptoms have not improved. Please return to emergency room if the symptoms increase or worsen or for any other concerns. Is patient prescribed a controlled substance at d/c from ED?: No Referrals: Rashi Hermosillo DO [Primary Care Provider] - 1-2 days Jose Urias MD [STAFF PHYSICIAN] - 1-2 days Time of Disposition: 14:39
[2018-08-04 13:30] LABS: Basophils # (A) 0.1 k/uL (0-0.2); Basophils % (A) 0 %; Eosinophils # (A) 0.4 k/uL (0-0.7); Eosinophils % (A) 3 %; HCT 45.3 % (34.0-46.0); HGB 15.4 gm/dL (11.4-16.0); Lymphocytes # (A) 2.1 k/uL (1.0-4.8); Lymphocytes % (A) 15 %; MCH 30.9 pg (25.0-35.0); MCHC 34.1 g/dL (31.0-37.0); MCV 90.7 fL (80.0-100.0); Mean Platelet Volume 7.5; Monocytes # (A) 0.5 k/uL (0-1.0); Monocytes % (A) 4 %; Neutrophils # (A) 11.3 k/uL (1.3-7.7); Neutrophils % (A) 78 %; Platelet Count 288 k/uL (150-450); RBC 4.99 m/uL (3.80-5.40); RDW 12.7 % (11.5-15.5); WBC 14.5 k/uL (3.8-10.6)
[2018-08-04 13:43] VITALS: RESP 18
[2018-08-04 13:48] LABS: ALT 14 U/L (9-52); AST 23 U/L (14-36); Albumin 4.9 g/dL (3.5-5.0); Alkaline Phosphatase 81 U/L (38-126); Amylase 64 U/L (30-110); Anion Gap 13 mmol/L; Blood Urea Nitrogen 12 mg/dL (7-17); Calcium 10.1 mg/dL (8.4-10.2); Carbon Dioxide 21 mmol/L (22-30); Chloride 105 mmol/L (98-107); Glucose 98 mg/dL (74-99); Lipase 68 U/L (23-300); Potassium 4.3 mmol/L (3.5-5.1); Sodium 139 mmol/L (137-145); Total Bilirubin 0.6 mg/dL (0.2-1.3); Total Protein 8.4 g/dL (6.3-8.2)
[2018-08-04 13:55] LABS: Appearance,Urine Clear (Clear); Bilirubin,Urine Negative (Negative); Blood,Urine Negative (Negative); Color,Urine Light Yellow; Glucose,Urine (UA) Negative (Negative); Ketones,Urine Negative (Negative); Leukocyte Esterase,Urine Negative (Negative); Nitrite,Urine Negative (Negative); Protein,Urine Negative (Negative); Specific Gravity,Urine 1.005 (1.001-1.035); Urobilinogen,Urine <2.0 mg/dL (<2.0)
[2018-08-04] MEDS ORDERED: AZITHROMYCIN 500 MG TAB PO STA (14:38)
[2018-08-04] MEDS ORDERED: cefTRIAXone 250 MG VIAL IM STA (14:38)
[2018-08-04 15:30] VITALS: BP 133/97; PULSE 98; TEMP 98
[2018-08-05 14:02] LABS: C. trachomatis,PCR Negative (Neg,Equiv); Chlamydia trachomatis Source Urine; N. gonorrhoeae,PCR Negative (Neg,Equiv); Neisseria Source Urine
== END 2018-08-04 15:35 | disposition home or self-care (01) ==
LOC: EC 12:21
DX: R19.7 Diarrhea, unspecified (principal); R10.10 Upper abdominal pain, unspecified; N89.8 Other specified noninflammatory disorders of vagina; R35.0 Frequency of micturition; J45.909 Unspecified asthma, uncomplicated; F32.9 Major depressive disorder, single episode, unspecified; F41.9 Anxiety disorder, unspecified; F17.200 Nicotine dependence, unspecified, uncomplicated; Z88.2 Allergy status to sulfonamides; Z79.899 Other long term (current) drug therapy; Z86.14 Personal history of Methicillin resistant Staphylococcus aureus infection; Z90.49 Acquired absence of other specified parts of digestive tract
CPT/HCPCS: 36415; 80053; 82150; 83690; 85025; 81003; 81025; 87491; 87591; 99284; 96360; 96361; 96372; J0696

== ENCOUNTER 2018-09-10 15:50 | Emergency (ER) | payer OTHER ==
[2018-09-10] MEDS ORDERED: HYDROmorphone 1 MG/ML 1 ML SYRINGE IM STA (16:49)
--- NOTE | 2018-09-10 16:51 | ED ---
General Adult HPI - General Chief complaint: Urogenital Stated complaint: Dr shauna,Scope done, blood clots, pain Source: patient Mode of arrival: ambulatory Limitations: no limitations - History of Present Illness Initial comments: Dictation was produced using [employer] dictation software. please excuse any grammatical, word or spelling errors. Chief Complaint: 33-year-old female past medical history of chronic pelvic pain presents with urinating clots. History of Present Illness: She states she's been having pelvic pain that has been persistent. She states she's been paying clots. Patient had a recent cystoscopy performed Thursday. She states that since then her pain has been slightly worse and she's been urinating some blood clots. Patient has history of bilateral tubal ligation. She also had placenta accreta. One of her pregnancies. Patient denies any constitutional symptoms. She called the urologist office. She reports that urology office staff called the attending in agreement was made to send patient to the emergency room. The ROS documented in this emergency department record has been reviewed and confirmed by me. Those systems with pertinent positive or negative responses have been documented in the HPI. All other systems are other negative and/or noncontributory. - Related Data Home Medications Medication Instructions Recorded Confirmed Albuterol Inhaler [Ventolin 2 puff INHALATION RT-Q4H PRN 07/20/14 09/10/18 Inhaler] Ibuprofen [Motrin Ib] 400 mg PO Q6H PRN 09/10/18 09/10/18 Prochlorperazine [Compazine] 10 mg PO TID PRN 09/10/18 09/10/18 Allergies Allergy/AdvReac Type Severity Reaction Status Date / Time Sulfa (Sulfonamide AdvReac Rash/Hives Verified 09/10/18 17:00 Antibiotics) Review of Systems ROS Statement: Those systems with pertinent positive or pertinent negative responses have been documented in the HPI. ROS Other: All systems not noted in ROS Statement are negative. Past Medical History Past Medical History: Asthma, Fibromyalgia, Osteoarthritis (OA), Syncope Additional Past Medical History / Comment(s): See Dr Babcock H&P, sjogren's syndrome, past hx. ulcer, chronic nausea, kidney stones History of Any Multi-Drug Resistant Organisms: MRSA Date of last positivie culture/infection: 2010 MDRO Source:: left forearm Past Surgical History: Section, Cholecystectomy Additional Past Surgical History / Comment(s): C/Sx3, EGD, colonoscopy, tubes tied Past Anesthesia/Blood Transfusion Reactions: No Reported Reaction Past Psychological History: Anxiety, Depression Smoking Status: Current every day smoker Past Alcohol Use History: Occasional Past Drug Use History: None Reported - Past Family History Sister(s) Family Medical History: Asthma General Exam - General Exam Comments Initial Comments: PHYSICAL EXAM: General Impression: Alert and oriented x3, not in acute distress HEENT: Normocephalic atraumatic, extra-ocular movements intact, pupils equal and reactive to light bilaterally, mucous membranes moist. Cardiovascular: Heart regular rate and rhythm, S1&S2 audible, no murmurs, rubs or gallops Chest: Lungs clear to auscultation bilaterally, no rhonchi, no wheeze, no rales Abdomen: Bowel sounds present, abdomen soft, non-tender, non-distended, no organomegaly Musculoskeletal: Pulses present and equal in all extremities, no peripheral edema Motor: Power 5/5 bilaterally, no focal deficits noted Neurological: CN II-XII grossly intact, no focal motor or sensory deficits noted Skin: Intact with no visualized rashes Psych: Normal affect and mood Limitations: no limitations Course Vital Signs 09/10/18 16:07 Temperature 98.1 F Pulse Rate 88 Respiratory 18 Rate Blood Pressure 123/79 O2 Sat by Pulse 100 Oximetry Medical Decision Making - Medical Decision Making ED course: 33-year-old female presents chief complaint of persistent pelvic pain and urinating blood clots. Patient reports having had CT that identified past nephrolithiasis. She did have cystoscopy without any significant findings she reports. Patient offered pelvic exam she refused. She did however consent to transvaginal ultrasound. Patient given IM analgesics. Discussed with patient that there is possibility that her symptoms reflect endometriosis. Urinalysis was obtained which showed improvement. Patient is on by mouth Keflex. She is told to continue that. Transvenous ultrasound shows no acute abnormalities. Patient discharged home. She is to follow-up with her [facility] for seizures of possible endometriosis. Patient is understandable and agreeable to discharge. - Lab Data Lab Results 09/10/18 Range/Units 16:43 Urine Color Light Yellow Urine Appearance Clear (Clear) Urine pH 7.0 (5.0-8.0) Ur Specific [place] 1.009 (1.001-1.035) Urine Protein Negative (Negative) Urine Glucose (UA) Negative (Negative) Urine Ketones Negative (Negative) Urine Blood Moderate H (Negative) Urine Nitrite Negative (Negative) Urine Bilirubin Negative (Negative) Urine Urobilinogen <2.0 (<2.0) mg/dL Ur Leukocyte Esterase Negative (Negative) Urine RBC 116 H (0-5) /hpf Urine WBC 7 H (0-5) /hpf Ur Squamous Epith Cells 1 (0-4) /hpf Urine Mucus Rare H (None) /hpf Disposition Clinical Impression: Pelvic pain Disposition: HOME SELF-CARE Condition: Good Instructions: Pelvic Pain in Women (ED) Is patient prescribed a controlled substance at d/c from ED?: No Referrals: Rashi Hermosillo DO [Primary Care Provider] - 1-2 days Time of Disposition: 18:42
[2018-09-10 17:18] LABS: Appearance,Urine Clear (Clear); Bilirubin,Urine Negative (Negative); Blood,Urine Moderate (Negative); Color,Urine Light Yellow; Glucose,Urine (UA) Negative (Negative); Ketones,Urine Negative (Negative); Leukocyte Esterase,Urine Negative (Negative); Mucus,Urine Rare /hpf; Nitrite,Urine Negative (Negative); Protein,Urine Negative (Negative); RBC,Urine 116 /hpf (0-5); Specific Gravity,Urine 1.009 (1.001-1.035); Squamous Epithelial Cell,Urine 1 /hpf (0-4); Urobilinogen,Urine <2.0 mg/dL (<2.0); WBC,Urine 7 /hpf (0-5)
--- NOTE | 2018-09-10 18:05 | US ---
EXAMINATION TYPE: US transvaginal DATE OF EXAM: 09/10/2018 COMPARISON: CT CLINICAL HISTORY: Pain. Pelvic pain since cystoscopy on Thursday with clots from bladder per patient ; Day 1LMP; TECHNIQUE: Transvaginal (TV).per EC Date of LMP: 09/10/2018 EXAM MEASUREMENTS: Uterus: 9.4 x 4.9 x 5.2 cm Endometrial Stripe: 1.1 cm Right Ovary: 2.7 x 2.9 x 1.8 cm Left Ovary: 1.9 x 1.9 x 1.6 cm 1. Uterus: Anteverted; small Nabothian Cyst in cervix 2. Endometrium: thicker may be wnl for day 1 LMP 3. Right Ovary: multiple follicles with largest as complex cyst = 1.4 x 1.2 x 1.1cm 4. Left Ovary: small follicles, limitedly seen due to overlying bowel Spectral, color and waveform doppler imaging shows good arterial and venous flow within the ovaries ; there is no evidence for ovarian torsion. 5. Bilateral Adnexa: wnl 6. Posterior cul-de-sac: wnl IMPRESSION: No solid adnexal mass or free fluid. Small cervical cyst. No endometrial thickening. No e vidence of ovarian torsion.
[2018-09-10 19:00] VITALS: BP 138/70; PULSE 78; RESP 16; TEMP 97.8
== END 2018-09-10 18:59 | disposition home or self-care (01) ==
LOC: EC 15:50
DX: R10.2 Pelvic and perineal pain (principal); R31.9 Hematuria, unspecified; J45.909 Unspecified asthma, uncomplicated; F17.200 Nicotine dependence, unspecified, uncomplicated; Z88.2 Allergy status to sulfonamides; Z86.14 Personal history of Methicillin resistant Staphylococcus aureus infection; Z87.442 Personal history of urinary calculi; Z98.51 Tubal ligation status; Z90.49 Acquired absence of other specified parts of digestive tract
CPT/HCPCS: 81001; 87086; 93975; 76830; 99284; 96372; J1170

== ENCOUNTER → 2018-10-04 | Outpatient (CLI) | payer OTHER ==
[2018-10-04 17:25] LABS: HCT 38.4 % (34.0-46.0); HGB 13.4 gm/dL (11.4-16.0); MCH 31.7 pg (25.0-35.0); MCHC 34.9 g/dL (31.0-37.0); MCV 90.9 fL (80.0-100.0); Mean Platelet Volume 7.6; Platelet Count 271 k/uL (150-450); RBC 4.23 m/uL (3.80-5.40); RDW 12.7 % (11.5-15.5); WBC 8.6 k/uL (3.8-10.6)
== END | disposition home or self-care (01) ==
LOC: LABPAT 16:48
PROVIDERS: ATTEND Surgery Plastic and Reconstructive Surgery
DX: Z01.812 Encounter for preprocedural laboratory examination (principal)
CPT/HCPCS: 85027

== ENCOUNTER 2018-10-07 11:29 | Inpatient (IN) | payer OTHER ==
[2018-10-04 10:13] VITALS: BMI 25.8
--- NOTE | 2018-10-07 05:57 | P.GSHP ---
History of Present Illness H&P Date: 10/07/18 CHIEF COMPLAINT: Hiatal hernia with gastroesophageal reflux disease. HISTORY OF PRESENT ILLNESS: The patient is a 33-year-old female who presents with hiatal hernia. She has completed an esophageal manometry including upper endoscopy workup. Now she presents for surgical intervention. PAST MEDICAL HISTORY: Please see list. PAST SURGICAL HISTORY: Please see list. MEDICATIONS: Please see list. ALLERGIES: Please see list. SOCIAL HISTORY: No illicit drug use FAMILY HISTORY: No reports of Crohn disease or ulcerative colitis. REVIEW OF ORGAN SYSTEMS: CONSTITUTIONAL: No reports of fevers or chills. GI: Denies any blood in stools or constipation. PHYSICAL EXAM: VITAL SIGNS: Stable GENERAL: Well-developed pleasant and in no acute distress. HEENT: No scleral icterus. Extraocular movements grossly intact. Moist buccal mucosa. NECK: Supple without lymphadenopathy. CHEST: Unlabored respirations. Equal bilateral excursions. CARDIOVASCULAR: Regular rate and rhythm. Distal 2+ pulses. ABDOMEN: Soft, nondistended. No peritoneal signs. MUSCULOSKELETAL: No clubbing, cyanosis, or edema. SKIN: Well-perfused. Good skin turgor. MANOMETRY: Shows no evidence of achalasia or scleroderma. ASSESSMENT: 1. Regurgitation. 2. Sjogrens disease. 3. Reflux disease. PLAN: 1. I have recommended Reglan 10 mg t.i.d. to actually help with motility. 2. Handy fundoplasty was described given her short lower esophageal valve, which will need repair. 3. Medications reviewed for history of Sjogren 4. DVT prophylaxis. 5. Antibiotic prophylaxis 6. Handy diet described 7. Inpatient hospitalization described. 8. She has intermediate to high risk for complications for underlying Sjogren's disease. Past Medical History Past Medical History: Asthma, Fibromyalgia, GERD/Reflux, Osteoarthritis (OA), Syncope Additional Past Medical History / Comment(s): sjogren's syndrome, past hx. ulcer , HX OF KIDNEY STONE History of Any Multi-Drug Resistant Organisms: MRSA Date of last positivie culture/infection: 2010 MDRO Source:: FOREARM, ABDOMEN Past Surgical History: Section, Cholecystectomy, Tubal Ligation Additional Past Surgical History / Comment(s): C/Sx3, EGD, colonoscopy, CYSTOCOPY. TILT TABLE TEST Past Anesthesia/Blood Transfusion Reactions: Previous Problems w/ Anesthesia Additional Past Anesthesia/Blood Transfusion Reaction / Comment(s): STATES HAS VERY DIFFICULT TIME WITH PAIN CONTROL POST OP R/T AUTOIMMUNE DX Smoking Status: Current every day smoker - Past Family History Sister(s) Family Medical History: Asthma Medications and Allergies Home Medications Medication Instructions Recorded Confirmed Type Albuterol Inhaler [Ventolin 2 puff INHALATION RT-Q4H PRN 07/20/14 10/04/18 History Inhaler] Ibuprofen [Motrin Ib] 400 mg PO Q6H PRN 09/10/18 10/04/18 History Prochlorperazine [Compazine] 10 mg PO TID PRN 09/10/18 10/04/18 History Allergies Allergy/AdvReac Type Severity Reaction Status Date / Time Sulfa (Sulfonamide Allergy Rash/Hives Verified 10/04/18 10:07 Antibiotics)
[~2018-10-07 11:29] MED LIST changes: +ACETAMINOPHEN IV (For NPO) 1,000 MG in EMPTY BAG 1 BAG IVPB ONE; +DEXAMETHASONE SOD PHOSPHATE 10 MG/ML 1 ML VIAL IV ONE; +HEPARIN SODIUM,PORCINE 5,000 UNIT/ML 1 ML VIAL SQ ONE; +LACTATED RINGERS 1,000 ML IV SCH; +LIDOCAINE 1% 20 ML VIAL (10MG/ML) FOR IV START INTRADERMA PRN; +SCOPOLAMINE 1.5MG/72HR PATCH TRANSDERM ONE; +SCOPOLAMINE 1.5MG/72HR PATCH TRANSDERM STA; -SODIUM CHLORIDE 0.9% 1,000 ML IV SCH; +ceFAZolin IN SWFI 2 GM/20 ML SYRINGE IVP ONE
[2018-10-07] MEDS: ONDANSETRON 4 MG/2 ML VIAL IVP ONE ×2 (12:10→17:43)
[2018-10-07] MEDS ORDERED: WATER FOR INJECTION, STERILE 10 ML VIAL IV ONE (14:07)
[2018-10-07] MEDS ORDERED: MIDAZOLAM 2 MG/2 ML VIAL ONE (14:07)
[2018-10-07] MEDS ORDERED: fentaNYL (PF) 50 MCG/ML 2 ML AMP ONE (14:07)
[2018-10-07] MEDS ORDERED: GLYCOPYRROLATE 0.2 MG/ML 2 ML VIAL ONE (14:07)
[2018-10-07] MEDS ORDERED: ROCURONIUM BROMIDE 10 MG/ML 10 ML VIAL IV ONE (14:07)
[2018-10-07] MEDS ORDERED: PROPOFOL 10 MG/ML 20 ML VIAL IV ONE (14:07)
[2018-10-07] MEDS ORDERED: KETAMINE 10 MG/ML 20 ML VIAL ONE (14:07)
[2018-10-07] MEDS ORDERED: NEOSTIGMINE 1 MG/ML 10 ML VIAL ONE (14:07)
[2018-10-07] MEDS ORDERED: ePHEDrine SULFATE/0.9% NACL/PF 50 MG/5 ML SYRINGE IV ONE (14:07)
[2018-10-07] MEDS ORDERED: HYDROmorphone (PF) 1 MG/ML ONE (14:07)
[2018-10-07] MEDS ORDERED: SUCCINYLCHOLINE CHLORIDE 100 MG/5 ML SYR IV ONE (14:07)
[2018-10-07] MEDS ORDERED: BUPIVACAIN-EPI 0.25%-1:200,000 30 ML VIAL SQ ONE ×2 (14:40→15:02)
[2018-10-07] MEDS ORDERED: LACTATED RINGERS 1,000 ML IV ONE (14:42)
[2018-10-07] MEDS ORDERED: NALOXONE 0.4 MG/ML 1 ML VIAL IV PRN (16:34)
[2018-10-07] MEDS ORDERED: ACETAMINOPHEN IV (For NPO) 1,000 MG in EMPTY BAG 1 BAG IVPB ONE (16:34)
[2018-10-07] MEDS ORDERED: HYDROcodone/APAP 15 ML SOLUTION PO PRN (16:34)
[2018-10-07] MEDS ORDERED: ALBUTEROL NEBULIZED 2.5 MG/3 ML INHALATION PRN (16:36)
--- NOTE | 2018-10-07 16:39 | P.OP ---
Date of Procedure: 10/07/18 Description of Procedure: Date of Procedure: 10/07/18 DESCRIPTION OF PROCEDURE(S): SURGEON: PETE HERNANDEZ MD PREOPERATIVE DIAGNOSES: 1. Gastroesophageal reflux disease. 2. Paraesophageal hiatal hernia, midline. 3. Sjogren's disease 4. Intractable nausea POSTOPERATIVE DIAGNOSES: 1. Gastroesophageal reflux disease. 2. Paraesophageal hiatal hernia, midline, 4 x 4 cm 3. Sjogren's disease 4. Intractable nausea OPERATION: 1. Robotic-assisted da Hima Xi laparoscopic repair of paraesophageal hiatal hernia, 4 cm, with [place] Biopatch A 8 x 8 cm. 2. Intraoperative esophagogastroduodenoscopy with cold biopsy forceps of the antrum ANESTHESIA: General with local anesthetic. ESTIMATED BLOOD LOSS: 5 mL COMPLICATIONS: None. Pathology: none sent Condition: stable Disposition: floor Operative Findings: 1. Hiatal defect 4 x 4 cm 2. Intraesophageal length over 2 cm obtained 3. Intraoperative EGD demonstrates Hill Grade 1 valve INDICATIONS: The patient is a 33-year-old female who presents with regurgitation, gastroesophageal reflux disease poorly controlled despite medications, and a symptomatic diaphragmatic hiatal hernia. Preoperative workup including upper endoscopy demonstrated a Hill grade 4 lower esophageal valve. She completed an esophageal manometry. Given the severity of the symptoms, she had elected for surgical intervention. Benefits and risks including bleeding, infection, recurrence, dysphagia, injury to the lung, need for further surgery was described at length. Informed consent was obtained. DESCRIPTION: The patient was brought into the operating room and placed in supine position. Preoperatively she had received heparin subcutaneously for DVT prophylaxis. After general induction, the abdomen was prepped and draped in standard sterile fashion. The patient had previously voided prior to coming to the operating room. Ioban draping was placed along the abdomen. A timeout protocol was confirmed with the surgical team, for which the patient's name, procedure to be performed including DVT prophylaxis with bilateral SCDs, and preoperative antibiotics were also confirmed. A robotic da Hima Xi system was prepped and primed. At 12 cm from the xiphoid to just below the umbilicus, proposed port sites were marked with indelible marker along the left axillary line, left mid-clavicular line with each ports were marked 10 cm from each other. A 5 mm 0 degrees laparoscopic trocar entry was performed along the left upper quadrant. The abdomen was insufflated to 15 mmHg pressure she tolerated well. Diagnostic laparoscopy demonstrated no injury to bowel, viscera, or mesentery. No injury had occurred to the small bowel or viscera. Next, one 8 mm robotic port was placed along the right upper abdomen. An 8-mm port was were placed along the left lateral abdominal wall. The camera 8-mm port was maintained along the epigastrium via the hernia defect. Another 12 mm port was placed along the left upper abdominal wall after exchanging the 5 mm port. Please note that the ports were placed at least 20 cm away from the target anatomy. Care was taken to check that each robotic arm were safely away from collision with the bed or the patient. At the epigastrium, a median sized Scott liver retractor was placed under direct visualization with the Iron Car Sales Representative placed under the right shoulder of the patient. All robotic arms were used. The patient was repositioned in reverse Trendelenburg position at 14-degrees after lowering the bed. The robot was docked above the right side of the patient. Using a grasper for arm 3, a grasper for arm 1, including vessel sealer for arm 2, the robotic system was docked and primed as described. Instruments were interchanged by the physical therapy assistant instructor. I had sat at the console. The gastrohepatic ligament was cleaved using a vessel sealer. Next, the phrenoesophageal ligament was mobilized and the distal esophagus was mobilized circumferentially. The left and right crura was identified. Circumferentially, the hernia sac was excised and brought into the peritoneal cavity. Dissection into the mediastinum was performed to release the esophagus into the abdominal cavity. Care was taken to avoid any gastrotomy. The measured defect was consistent with 4 cm axial length and 4 cm in width. After dissection, the distal esophagus of 2 cm was brought into the abdominal cavity. Once the hiatus and crura was dissected, 2-0 VLOC suture was placed to reapproximate the diaphragmatic hiatus posteriorly. To buttress the repair, a [place] Biopatch A was prepared along the back table and cut in half of a zimmerman-hole fashion as to reinforce the repair as an underlay. The mesh was placed along the crural repair and tagged using horizontal mattress sutures using 2-0 VLOC. The patient has history of presbyesophagus including mild esophageal dysmotility and a 56-Uzbek bougie was placed under direct visualization. The bougie was placed for 1 minute and then removed. An Olympus gastroscope was passed through posterior oropharynx. Erosive esophagitis LA grade A was confirmed. The stomach was entered. Retroflexion of the scope confirmed a Hill grade 1 lower esophageal valve. The stomach had been desufflated. No evidence of leaks were found of the esophagus or stomach. The squamocolumnar junction and hiatus was placed at 40 cm from the incisors. The GI tract with desufflated This concluded the endoscopic portion of the case. The robot was undocked from the patient. I re-scrubbed into the case. All instruments and pneumoperitoneum and specimens were evacuated from the abdominal cavity. Incisions were reapproximated using 4-0 Monocryl in an interrupted subcuticular fashion. Liquid glue was applied to the skin. Local anesthetic was infiltrated in all wounds for postop analgesia. Multiple intra-abdominal films were obtained. At the end of the procedure, needle, sponge, and instrument count was verified correct by the surgical brace maker. The patient had tolerated the procedure well and was taken to the postanesthesia unit in stable condition. Intraoperative films were reviewed with the patient's family who was pleased with the level of care.
[2018-10-07] MEDS ORDERED: D5-0.45% NACL WITH KCL 20MEQ/L 1,000 ML IV SCH (16:45)
[2018-10-07] MEDS: HYDROmorphone 0.5 MG/0.5 ML SYRINGE IVP PRN ×2 (17:26→17:41)
[2018-10-07] MEDS: ALBUTEROL NEBULIZED 2.5 MG/3 ML INHALATION SCH (19:36)
[2018-10-07] MEDS: KETOROLAC 30 MG/ML 1 ML VIAL IVP SCH (19:44)
[2018-10-07] MEDS: SIMETHICONE 40 MG/0.6 ML DROPS 2,000 MG/30 ML BOTTLE PO SCH (20:05)
[2018-10-07] MEDS: HYOSCYAMINE ORAL DROPS 1.875 MG/15 ML BOTTLE PO SCH (20:06)
[2018-10-07] MEDS: ONDANSETRON 4 MG/2 ML VIAL IVP SCH (20:08)
[2018-10-07] MEDS: METOCLOPRAMIDE 5 MG/ML 2 ML VIAL IVP SCH (20:08)
--- NOTE | 2018-10-07 20:14 | P.PN ---
Progress Note - Text Progress Note Date: 10/07/18 Patient seen and reevaluated this evening. She is tolerating liquids. Discharge instructions were described. Pain is well-controlled. Plan for discharge home tomorrow pending completion of esophagram. Post hiatal hernia surgery diet including liquids for 2 weeks. No carbonated beverages in that timeframe. Strict tobacco avoidance also described. No lifting for pounds 4 weeks also reviewed.
[2018-10-07] MEDS: HYDROmorphone 1 MG/ML 1 ML SYRINGE IVP PRN (22:41)
[2018-10-08] MEDS: METOCLOPRAMIDE 5 MG/ML 2 ML VIAL IVP SCH ×2 (00:40→06:28)
[2018-10-08] MEDS: KETOROLAC 30 MG/ML 1 ML VIAL IVP SCH ×3 (00:41→12:17)
[2018-10-08] MEDS: ceFAZolin IN SWFI 2 GM/20 ML SYRINGE IVP SCH ×2 (00:42→07:52)
[2018-10-08] MEDS: ONDANSETRON 4 MG/2 ML VIAL IVP SCH ×3 (00:42→12:32)
[2018-10-08] MEDS: SIMETHICONE 40 MG/0.6 ML DROPS 2,000 MG/30 ML BOTTLE PO SCH ×3 (00:42→12:16)
[2018-10-08] MEDS: HYOSCYAMINE ORAL DROPS 1.875 MG/15 ML BOTTLE PO SCH ×3 (00:42→12:15)
[2018-10-08] MEDS: HYDROmorphone 1 MG/ML 1 ML SYRINGE IVP PRN ×2 (05:36→09:43)
[2018-10-08 06:25] LABS: Basophils % (A) 0 %; Eosinophils # (A) 0.1 k/uL (0-0.7); Eosinophils % (A) 1 %; HCT 35.5 % (34.0-46.0); HGB 11.3 gm/dL (11.4-16.0); Lymphocytes # (A) 1.5 k/uL (1.0-4.8); Lymphocytes % (A) 16 %; MCH 29.6 pg (25.0-35.0); MCHC 31.9 g/dL (31.0-37.0); MCV 92.6 fL (80.0-100.0); Mean Platelet Volume 6.9; Monocytes # (A) 0.4 k/uL (0-1.0); Monocytes % (A) 4 %; Neutrophils # (A) 7.2 k/uL (1.3-7.7); Neutrophils % (A) 77 %; Platelet Count 253 k/uL (150-450); RBC 3.83 m/uL (3.80-5.40); RDW 12.6 % (11.5-15.5); WBC 9.3 k/uL (3.8-10.6)
[2018-10-08 06:43] LABS: Anion Gap 5 mmol/L; Blood Urea Nitrogen 9 mg/dL (7-17); Carbon Dioxide 24 mmol/L (22-30); Chloride 108 mmol/L (98-107); Magnesium 1.9 mg/dL (1.6-2.3); Phosphorus 3.6 mg/dL (2.5-4.5); Potassium 4.3 mmol/L (3.5-5.1); Sodium 137 mmol/L (137-145)
--- NOTE | 2018-10-08 08:39 | FL ---
EXAMINATION TYPE: FL esophagus cervic/pharynx DATE OF EXAM: 10/08/2018 HISTORY: Post recent fundoplication COMPARISON: NONE TECHNIQUE: A double contrast esophagram is performed utilizing air and barium. FINDINGS: The esophagus shows normal motility and emptying into the stomach. No evidence of hiatal hernia or s tricture noted. No significant gastroesophageal reflux was seen during real time performance of this study. 13 seconds of fluoroscopy time and 5 images submitted. IMPRESSION: No evidence of extravasation or obstruction.
[2018-10-08] MEDS ORDERED: PANTOPRAZOLE 40 MG/10 ML VIAL IV SCH (09:00)
[2018-10-08] MEDS ORDERED: ENOXAPARIN 30 MG/0.3 ML SYRINGE SQ SCH (09:00)
[2018-10-08] MEDS: ALBUTEROL NEBULIZED 2.5 MG/3 ML INHALATION SCH ×2 (09:18→12:00)
[2018-10-08] MEDS: MAGNESIUM SULFATE-D5W PMX 1 GM in DEXTROSE/WATER 1 100ML.BAG IVPB SCH ×2 (11:26→12:36)
[2018-10-08 13:16] VITALS: BP 105/66; PULSE 70; RESP 16; TEMP 98.4
--- NOTE | 2018-10-09 13:36 | P.DS ---
Providers Date of admission: 10/07/18 11:29 Expected date of discharge: 10/08/18 Attending physician: Juli Dumont Primary care physician: Rashi Hermosillo Plan - Discharge Summary Discharge Rx Participant: Yes New Discharge Prescriptions: New Bisacodyl [Dulcolax] 5 mg PO DAILY PRN #10 tablet. PRN Reason: Constipation HYDROcodone/APAP [[place] Elixir 7.5-325Mg/15Ml] 15 ml PO Q6HR PRN #180 ml PRN Reason: Pain Ondansetron Odt [Zofran Odt] 4 mg PO Q8HR PRN #9 tab PRN Reason: Nausea Simethicone 40 mg/0.6 ml Drops [Mylicon Drops] 40 mg PO PCHS PRN #30 ml PRN Reason: Gas Ibuprofen [Motrin] 600 mg PO Q8HR PRN #20 tab PRN Reason: Pain Omeprazole 40 mg PO DAILY #90 capsule. Amoxic-Pot Clav 400-57Mg/5Ml [Augmentin 400-57 mg/5 ml Liquid] 10 ml PO Q12H #180 bottle No Action Albuterol Inhaler [Ventolin Inhaler] 2 puff INHALATION RT-Q4H PRN PRN Reason: Shortness Of Breath Prochlorperazine [Compazine] 10 mg PO TID PRN PRN Reason: Nausea Ibuprofen [Motrin Ib] 400 mg PO Q6H PRN PRN Reason: Pain Discharge Medication List Albuterol Inhaler [Ventolin Inhaler] 2 puff INHALATION RT-Q4H PRN 07/20/14 [ History] Ibuprofen [Motrin Ib] 400 mg PO Q6H PRN 09/10/18 [History] Prochlorperazine [Compazine] 10 mg PO TID PRN 09/10/18 [History] Bisacodyl [Dulcolax] 5 mg PO DAILY PRN #10 tablet. 10/08/18 [Rx] HYDROcodone/APAP [[place] Elixir 7.5-325Mg/15Ml] 15 ml PO Q6HR PRN #180 ml [Rx] Ibuprofen [Motrin] 600 mg PO Q8HR PRN #20 tab 10/08/18 [Rx] Omeprazole 40 mg PO DAILY #90 capsule. 10/08/18 [Rx] Ondansetron Odt [Zofran Odt] 4 mg PO Q8HR PRN #9 tab 10/08/18 [Rx] Simethicone 40 mg/0.6 ml Drops [Mylicon Drops] 40 mg PO PCHS PRN #30 ml [Rx] Amoxic-Pot Clav 400-57Mg/5Ml [Augmentin 400-57 mg/5 ml Liquid] 10 ml PO Q12H # 180 bottle 10/09/18 [Rx] Follow up Appointment(s)/Referral(s): Juli Dumont MD [STAFF PHYSICIAN] - 10/12/18 (10-12-18 @ 2:40pm) Patient Instructions/Handouts: Hiatal Hernia (DC), Laparoscopic Hiatal Hernia Repair (DC) Activity/Diet/Wound Care/Special Instructions: No lifting over 4 pounds in 4 weeks. May shower. No bath tub soaks. AVOID STRAWS AND CARBONATED BEVERAGES Discharge Disposition: HOME SELF-CARE
== END 2018-10-08 14:59 | disposition home or self-care (01) | DRG 327 ==
LOC: 2ORMAIN 11:29 → 6PED 16:45
PROVIDERS: ADMIT Surgery Plastic and Reconstructive Surgery; ATTEND Surgery Plastic and Reconstructive Surgery
PROC: 8E0W4CZ Robotic Assisted Procedure of Trunk Region, Percutaneous Endoscopic Approach (ICD-10-PCS; 2018-10-07)
PROC: 0DB78ZX Excision of Stomach, Pylorus, Via Natural or Artificial Opening Endoscopic, Diagnostic (ICD-10-PCS; 2018-10-07)
PROC: 0BUT4JZ Supplement Diaphragm with Synthetic Substitute, Percutaneous Endoscopic Approach (ICD-10-PCS; principal; 2018-10-07 12:55)
DX: K44.9 Diaphragmatic hernia without obstruction or gangrene (principal); K22.10 Ulcer of esophagus without bleeding; M35.00 Sjogren syndrome, unspecified; K22.4 Dyskinesia of esophagus; K22.8 Other specified diseases of esophagus; K21.0 Gastro-esophageal reflux disease with esophagitis; J45.909 Unspecified asthma, uncomplicated; R11.0 Nausea; M79.7 Fibromyalgia; M19.90 Unspecified osteoarthritis, unspecified site; F17.210 Nicotine dependence, cigarettes, uncomplicated; Z79.899 Other long term (current) drug therapy; Z87.442 Personal history of urinary calculi; Z86.14 Personal history of Methicillin resistant Staphylococcus aureus infection; Z90.49 Acquired absence of other specified parts of digestive tract; Z98.51 Tubal ligation status; Z88.2 Allergy status to sulfonamides; Z82.5 Family history of asthma and other chronic lower respiratory diseases
CPT/HCPCS: 74210; 80051; 82310; 82565; 83735; 84100; 84520; 85025

== ENCOUNTER → 2018-10-14 | Outpatient (CLI) | payer OTHER ==
--- NOTE | 2018-10-14 11:02 | XR ---
EXAMINATION TYPE: XR chest 2V DATE OF EXAM: 10/14/2018 COMPARISON: 09/09/2015 HISTORY: Chest pain and shortness of breath after hiatal hernia surgery. TECHNIQUE: Frontal and lateral views of the chest are obtained. FINDINGS: There is no focal air space opacity, pleural effusion, or pneumothorax seen. The cardiac silhouette size is within normal limits. The osseous structures are intact. IMPRESSION: No acute cardiopulmonary process.
== END | disposition home or self-care (01) ==
LOC: RADXRMAIN 09:49
PROVIDERS: ATTEND Surgery Plastic and Reconstructive Surgery
DX: R06.02 Shortness of breath (principal)
CPT/HCPCS: 71046

== ENCOUNTER 2018-10-29 07:54 | Day surgery (SDC) | payer OTHER ==
[2018-10-28 09:45] VITALS: BMI 31.2
--- NOTE | 2018-10-29 06:20 | P.GSHP ---
History of Present Illness H&P Date: 10/29/18 CHIEF COMPLAINT: GERD HISTORY OF PRESENT ILLNESS: The patient is a 33-year-old female who presents reports gastroesophageal reflux disease. Upper endoscopy was offered for further evaluation and management. PAST MEDICAL HISTORY: Please see list. PAST SURGICAL HISTORY: Please see list. MEDICATIONS: Please see list. ALLERGIES: Please see list. SOCIAL HISTORY: No illicit drug use FAMILY HISTORY: No reports of Crohn disease or ulcerative colitis. REVIEW OF ORGAN SYSTEMS: CONSTITUTIONAL: No reports of fevers or chills. GI: Denies any blood in stools or constipation. PHYSICAL EXAM: VITAL SIGNS: Stable GENERAL: Well-developed and pleasant in no acute distress. HEENT: No scleral icterus. Extraocular movements grossly intact. Moist buccal mucosa. NECK: Supple without lymphadenopathy. CHEST: Unlabored respirations. Equal bilateral excursions. CARDIOVASCULAR: Regular rate and rhythm. Distal 2+ pulses. ABDOMEN: Soft, nondistended. MUSCULOSKELETAL: No clubbing, cyanosis, or edema. ASSESSMENT: 1. Gastroesophageal reflux disease PLAN: 1. Recommend proceeding with an upper endoscopy and rigid dilation, 52 Fr. Past Medical History Past Medical History: Asthma, Fibromyalgia, GERD/Reflux, Osteoarthritis (OA), Skin Disorder, Syncope Additional Past Medical History / Comment(s): Sjogren's syndrome. Past hx. ulcer. Chronic nausea. HX Kidney stones; SYNCOPE. ECZEMA. HAD HIATAL HERNIA REPAIR FEW WEEKS AGO, HAVING DYSPHAGIA SX. History of Any Multi-Drug Resistant Organisms: MRSA Date of last positivie culture/infection: 2009 MDRO Source:: left forearm Past Surgical History: Section, Cholecystectomy, Tubal Ligation Additional Past Surgical History / Comment(s): C/Sx3, EGD, colonoscopy. HIATAL HERNIA REPAIR. Past Anesthesia/Blood Transfusion Reactions: No Reported Reaction Additional Past Anesthesia/Blood Transfusion Reaction / Comment(s): STATES HAS VERY DIFFICULT TIME WITH PAIN CONTROL POST OP R/T AUTOIMMUNE DX Smoking Status: Light tobacco smoker - Past Family History Sister(s) Family Medical History: Asthma Medications and Allergies Home Medications Medication Instructions Recorded Confirmed Type Albuterol Inhaler [Ventolin 2 puff INHALATION RT-Q4H PRN 07/20/14 10/28/18 History Inhaler] Ibuprofen [Motrin Ib] 400 - 800 mg PO Q6H PRN 12/14/18 01/31/19 History Prochlorperazine [Compazine] 10 mg PO TID PRN 09/10/18 10/28/18 History Ondansetron Odt [Zofran Odt] 4 mg PO Q8HR PRN #9 tab 10/08/18 10/28/18 Rx Allergies Allergy/AdvReac Type Severity Reaction Status Date / Time Sulfa (Sulfonamide Allergy Rash/Hives Verified 10/28/18 09:28 Antibiotics) metoclopramide [From Reglan] AdvReac Unknown Verified 10/28/18 09:28
[~2018-10-29 07:54] MED LIST changes: -ACETAMINOPHEN IV (For NPO) 1,000 MG in EMPTY BAG 1 BAG IVPB ONE; -DEXAMETHASONE SOD PHOSPHATE 10 MG/ML 1 ML VIAL IV ONE; -HEPARIN SODIUM,PORCINE 5,000 UNIT/ML 1 ML VIAL SQ ONE; -LACTATED RINGERS 1,000 ML IV SCH; -SCOPOLAMINE 1.5MG/72HR PATCH TRANSDERM ONE; -SCOPOLAMINE 1.5MG/72HR PATCH TRANSDERM STA; -ceFAZolin IN SWFI 2 GM/20 ML SYRINGE IVP ONE
[2018-10-29] MEDS: LACTATED RINGERS 1,000 ML IV SCH ×2 (08:14→09:47)
[2018-10-29 08:16] VITALS: TEMP 98
[2018-10-29] MEDS ORDERED: PROPOFOL 10 MG/ML 20 ML VIAL IV ONE (08:32)
[2018-10-29] MEDS ORDERED: LIDOCAINE 1% INJ 10MG/ML (20 ML MDV) ONE (08:32)
[2018-10-29] MEDS ORDERED: SODIUM CHLORIDE 0.9% 1,000 ML IV SCH (08:55)
--- NOTE | 2018-10-29 09:00 | P.PCN ---
Date of Procedure: 10/29/18 Description of Procedure: PREOPERATIVE DIAGNOSIS: Dysphagia. Gastroesophageal reflux disease History of hiatal hernia repair POSTOPERATIVE DIAGNOSIS: Dysphagia. Gastroesophageal reflux disease History of hiatal hernia repair OPERATION: Esophagogastroduodenoscopy with rigid dilator over the guidewire, 51 Fr. SURGEON: Juli Dumont MD ANESTHESIA: MAC. INDICATIONS: The patient is a 33-year-old female who presents with a history of dysphagia. Benefits and risks of the procedure were described. Informed consent was obtained. DESCRIPTION: The patient was brought into the endoscopy suite and laid in the left lateral decubitus position. After a timeout was confirmed, the procedure was initiated. An Olympus gastroscope was passed and the stomach was entered. Mild gastritis was identified. The scope was advanced to the duodenum which was unremarkable. Retroflexion the scope confirmed a Hill grade 1 lower esophageal valve with an intact Handy fundoplication. Next using an Vietnamese rigid dilator, a guidewire was placed through the pediatric gastroscope. Next the scope was withdrawn. A 51-[place] rigid Vietnamese dilator was passed carefully along the posterior oropharynx to 50 cm and left in place for 2 minutes stretch. The dilator was withdrawn including the guidewire. The scope was reentered along the posterior oropharynx with no findings of full-thickness tear of the upper esophageal sphincter. No full-thickness injury was encountered. The GI tract was desufflated. The patient tolerated the procedure well. FINDINGS: Squamocolumnar junction unremarkable at 40 cm. Vietnamese rigid dilator 51-Pu[place] Rican completed. No diffuse gastritis Hill grade 1 lower esophageal valve. No recurrent hiatal hernia No LA grade A esophagitis. RECOMMENDATIONS: Upper endoscopy as needed Plan - Discharge Summary Discharge Rx Participant: Yes New Discharge Prescriptions: No Action Albuterol Inhaler [Ventolin Inhaler] 2 puff INHALATION RT-Q4H PRN PRN Reason: Shortness Of Breath Prochlorperazine [Compazine] 10 mg PO TID PRN PRN Reason: Nausea Ibuprofen [Motrin Ib] 400 - 800 mg PO Q6H PRN PRN Reason: Pain Ondansetron Odt [Zofran Odt] 4 mg PO Q8HR PRN #9 tab PRN Reason: Nausea Discharge Medication List Albuterol Inhaler [Ventolin Inhaler] 2 puff INHALATION RT-Q4H PRN 07/20/14 [ History] Ibuprofen [Motrin Ib] 400 - 800 mg PO Q6H PRN 09/10/18 [History] Prochlorperazine [Compazine] 10 mg PO TID PRN 09/10/18 [History] Ondansetron Odt [Zofran Odt] 4 mg PO Q8HR PRN #9 tab 10/08/18 [Rx] Follow up Appointment(s)/Referral(s): Juli Dumont MD [STAFF PHYSICIAN] - As Needed Patient Instructions/Handouts: Esophageal Dilation (DC) Activity/Diet/Wound Care/Special Instructions: Liquid diet. Otherwise May start Handy soft diet per list. Discharge Disposition: HOME SELF-CARE
[2018-10-29 09:14] VITALS: RESP 18
[2018-10-29] MEDS ORDERED: ONDANSETRON 4 MG/2 ML VIAL IVP ONE (09:19)
[2018-10-29 09:32] VITALS: BP 110/72; PULSE 75
== END 2018-10-29 10:45 | disposition home or self-care (01) ==
LOC: ORWHC2ENDO 07:54
PROVIDERS: ATTEND Surgery Plastic and Reconstructive Surgery
DX: K22.2 Esophageal obstruction (principal); K29.70 Gastritis, unspecified, without bleeding; K21.9 Gastro-esophageal reflux disease without esophagitis; J45.909 Unspecified asthma, uncomplicated; M79.7 Fibromyalgia; M19.90 Unspecified osteoarthritis, unspecified site; M35.00 Sjogren syndrome, unspecified; L30.9 Dermatitis, unspecified; F17.200 Nicotine dependence, unspecified, uncomplicated; Z88.2 Allergy status to sulfonamides; Z88.8 Allergy status to other drugs, medicaments and biological substances; Z86.14 Personal history of Methicillin resistant Staphylococcus aureus infection; Z87.442 Personal history of urinary calculi; Z90.49 Acquired absence of other specified parts of digestive tract; Z98.51 Tubal ligation status
CPT/HCPCS: 81025; 43248; J2405; J2001; J2704; 43249

== ENCOUNTER 2018-12-23 11:55 | Emergency (ER) | payer OTHER ==
[2018-12-23 12:52] LABS: Appearance,Urine Clear (Clear); Bilirubin,Urine Negative (Negative); Blood,Urine Negative (Negative); Color,Urine Light Yellow; Glucose,Urine (UA) Negative (Negative); Ketones,Urine Negative (Negative); Leukocyte Esterase,Urine Negative (Negative); Nitrite,Urine Negative (Negative); Protein,Urine Negative (Negative); Specific Gravity,Urine 1.005 (1.001-1.035); Urobilinogen,Urine <2.0 mg/dL (<2.0)
[2018-12-23] MEDS ORDERED: SODIUM CHLORIDE 0.9% 1,000 ML IV STA (12:56)
[2018-12-23 13:44] LABS: Basophils % (A) 0 %; Eosinophils # (A) 0.3 k/uL (0-0.7); Eosinophils % (A) 3 %; HCT 42.7 % (34.0-46.0); HGB 13.8 gm/dL (11.4-16.0); Lymphocytes # (A) 2.2 k/uL (1.0-4.8); Lymphocytes % (A) 27 %; MCH 28.4 pg (25.0-35.0); MCHC 32.4 g/dL (31.0-37.0); MCV 87.7 fL (80.0-100.0); Mean Platelet Volume 8.3; Monocytes # (A) 0.3 k/uL (0-1.0); Monocytes % (A) 4 %; Neutrophils # (A) 5.2 k/uL (1.3-7.7); Neutrophils % (A) 64 %; Platelet Count 248 k/uL (150-450); RBC 4.87 m/uL (3.80-5.40); RDW 12.4 % (11.5-15.5); WBC 8.1 k/uL (3.8-10.6)
[2018-12-23 13:48] LABS: ALT 12 U/L (9-52); AST 26 U/L (14-36); Albumin 4.5 g/dL (3.5-5.0); Alkaline Phosphatase 52 U/L (38-126); Amylase 38 U/L (30-110); Anion Gap 9 mmol/L; Blood Urea Nitrogen 9 mg/dL (7-17); Calcium 9.8 mg/dL (8.4-10.2); Carbon Dioxide 23 mmol/L (22-30); Chloride 109 mmol/L (98-107); Glucose 78 mg/dL (74-99); Lipase 52 U/L (23-300); Sodium 141 mmol/L (137-145); Total Bilirubin 0.9 mg/dL (0.2-1.3); Total Protein 7.6 g/dL (6.3-8.2)
[2018-12-23 14:14] LABS: Potassium 4.6 mmol/L (3.5-5.1)
--- NOTE | 2018-12-23 15:23 | ED ---
General Adult HPI - General Chief complaint: Nausea/Vomiting/Diarrhea Stated complaint: Stomach issues Time Seen by Provider: 12/23/18 12:25 Source: patient, RN notes reviewed Mode of arrival: ambulatory Limitations: no limitations - History of Present Illness Initial comments: 33-year-old female presents to the emergency department for a chief complaint of diarrhea. Patient states she has had about 4 episodes of diarrhea a day for the past 5 days. She has also felt nauseous but has not vomited. Patient states she has been drinking plenty of fluids. She denies fevers or chills. She denies recent travel. She denies any abdominal pain whatsoever. Patient states she does have an appointment with her surgeon as she had a hiatal hernia repair 3 months ago. This appointment is in 4 days. Patient has no other complaints at this time including shortness of breath, chest pain, abdominal pain, nausea or vomiting, headache, or visual changes. - Related Data Home Medications Medication Instructions Recorded Confirmed Albuterol Inhaler [Ventolin 2 puff INHALATION RT-Q4H PRN 07/20/14 12/23/18 Inhaler] Prochlorperazine [Compazine] 10 mg PO TID PRN 09/10/18 12/23/18 Previous Rx's Medication Instructions Recorded Ondansetron [Zofran ODT] 4 mg PO Q8HR PRN #15 tab 12/23/18 Allergies Allergy/AdvReac Type Severity Reaction Status Date / Time Sulfa (Sulfonamide Allergy Rash/Hives Verified 12/23/18 12:36 Antibiotics) metoclopramide [From Reglan] AdvReac Unknown Verified 12/23/18 12:36 Review of Systems ROS Statement: Those systems with pertinent positive or pertinent negative responses have been documented in the HPI. ROS Other: All systems not noted in ROS Statement are negative. Past Medical History Past Medical History: Asthma, Fibromyalgia, GERD/Reflux, Osteoarthritis (OA), Skin Disorder, Syncope Additional Past Medical History / Comment(s): Sjogren's syndrome. Past hx. ulcer. Chronic nausea. HX Kidney stones; SYNCOPE. ECZEMA. HAD HIATAL HERNIA REPAIR FEW WEEKS AGO, HAVING DYSPHAGIA SX. History of Any Multi-Drug Resistant Organisms: MRSA Date of last positivie culture/infection: 2009 MDRO Source:: left forearm Past Surgical History: Section, Cholecystectomy, Tubal Ligation Additional Past Surgical History / Comment(s): C/Sx3, EGD, colonoscopy. HIATAL HERNIA REPAIR. Past Anesthesia/Blood Transfusion Reactions: No Reported Reaction Additional Past Anesthesia/Blood Transfusion Reaction / Comment(s): STATES HAS VERY DIFFICULT TIME WITH PAIN CONTROL POST OP R/T AUTOIMMUNE DX Past Psychological History: Anxiety, Depression Smoking Status: Light tobacco smoker - Past Family History Sister(s) Family Medical History: Asthma General Exam Limitations: no limitations General appearance: alert, in no apparent distress Head exam: Present: atraumatic, normocephalic, normal inspection Eye exam: Present: normal appearance, PERRL, EOMI. Absent: scleral icterus, c onjunctival injection, periorbital swelling ENT exam: Present: normal exam Neck exam: Present: normal inspection, full ROM. Absent: tenderness, menin gismus, lymphadenopathy Respiratory exam: Present: normal lung sounds bilaterally. Absent: respiratory distress, wheezes, rales, rhonchi, stridor Cardiovascular Exam: Present: regular rate, normal rhythm, normal heart sounds. Absent: systolic murmur, diastolic murmur, rubs, gallop, clicks GI/Abdominal exam: Present: soft, normal bowel sounds. Absent: distended, tenderness (no tenderness noted to the abdomen), guarding, rebound, rigid Neurological exam: Present: alert, oriented X3, CN II-XII intact Psychiatric exam: Present: normal affect, normal mood Course Vital Signs 12/23/18 12/23/18 12/23/18 12:25 13:30 14:30 Temperature 98.7 F Pulse Rate 76 70 72 Respiratory 18 18 18 Rate Blood Pressure 115/83 116/78 117/79 O2 Sat by Pulse 96 98 98 Oximetry 12/23/18 16:00 Temperature 98.2 F Pulse Rate 72 Respiratory 16 Rate Blood Pressure 118/80 O2 Sat by Pulse 98 Oximetry Medical Decision Making - Medical Decision Making 33-year-old female presents to the emergency department for a chief light of diarrhea. This has been ongoing for the past 5 days. She is able to keep down oral liquids. No vomiting. She does have mild nausea. No fevers or recent travel. No abdominal pain. CBC and CMP are unremarkable. Urine negative. The patient does not have any abdominal pain imaging was not warranted at this time. Patient does have an appointment with her surgeon in 4 days. She will follow up then and return here if she is any worsening symptoms or develops abdominal pain. - Lab Data Result diagrams: 12/23/18 13:27 12/23/18 13:27 Lab Results 12/23/18 12/23/18 12/23/18 Range/Units 12:38 12:38 13:27 WBC (3.8-10.6) k/uL RBC (3.80-5.40) m/uL Hgb (11.4-16.0) gm/dL Hct (34.0-46.0) % MCV (80.0-100.0) fL MCH (25.0-35.0) pg MCHC (31.0-37.0) g/dL RDW (11.5-15.5) % Plt Count (150-450) k/uL Neutrophils % % Lymphocytes % % Monocytes % % Eosinophils % % Basophils % % Neutrophils # (1.3-7.7) k/uL Lymphocytes # (1.0-4.8) k/uL Monocytes # (0-1.0) k/uL Eosinophils # (0-0.7) k/uL Basophils # (0-0.2) k/uL Sodium 141 (137-145) mmol/L Potassium 4.6 (3.5-5.1) mmol/L Chloride 109 H (98-107) mmol/L Carbon Dioxide 23 (22-30) mmol/L Anion Gap 9 mmol/L BUN 9 (7-17) mg/dL Creatinine 0.65 (0.52-1.04) mg/dL Est GFR (CKD-EPI)AfAm >90 (>60 ml/min/1.73 sqM) Est GFR (CKD-EPI)NonAf >90 (>60 ml/min/1.73 sqM) Glucose 78 (74-99) mg/dL Calcium 9.8 (8.4-10.2) mg/dL Total Bilirubin 0.9 (0.2-1.3) mg/dL AST 26 (14-36) U/L ALT 12 (9-52) U/L Alkaline Phosphatase 52 (38-126) U/L Total Protein 7.6 (6.3-8.2) g/dL Albumin 4.5 (3.5-5.0) g/dL Amylase 38 (30-110) U/L Lipase 52 (23-300) U/L Urine Color Light Yellow Urine Appearance Clear (Clear) Urine pH 6.0 (5.0-8.0) Ur Specific [place] 1.005 (1.001-1.035) Urine Protein Negative (Negative) Urine Glucose (UA) Negative (Negative) Urine Ketones Negative (Negative) Urine Blood Negative (Negative) Urine Nitrite Negative (Negative) Urine Bilirubin Negative (Negative) Urine Urobilinogen <2.0 (<2.0) mg/dL Ur Leukocyte Esterase Negative (Negative) Urine HCG, Qual Not Detected (Not Detectd) 12/23/18 Range/Units 13:27 WBC 8.1 (3.8-10.6) k/uL RBC 4.87 (3.80-5.40) m/uL Hgb 13.8 (11.4-16.0) gm/dL Hct 42.7 (34.0-46.0) % MCV 87.7 (80.0-100.0) fL MCH 28.4 (25.0-35.0) pg MCHC 32.4 (31.0-37.0) g/dL RDW 12.4 (11.5-15.5) % Plt Count 248 (150-450) k/uL Neutrophils % 64 % Lymphocytes % 27 % Monocytes % 4 % Eosinophils % 3 % Basophils % 0 % Neutrophils # 5.2 (1.3-7.7) k/uL Lymphocytes # 2.2 (1.0-4.8) k/uL Monocytes # 0.3 (0-1.0) k/uL Eosinophils # 0.3 (0-0.7) k/uL Basophils # 0.0 (0-0.2) k/uL Sodium (137-145) mmol/L Potassium (3.5-5.1) mmol/L Chloride (98-107) mmol/L Carbon Dioxide (22-30) mmol/L Anion Gap mmol/L BUN (7-17) mg/dL Creatinine (0.52-1.04) mg/dL Est GFR (CKD-EPI)AfAm (>60 ml/min/1.73 sqM) Est GFR (CKD-EPI)NonAf (>60 ml/min/1.73 sqM) Glucose (74-99) mg/dL Calcium (8.4-10.2) mg/dL Total Bilirubin (0.2-1.3) mg/dL AST (14-36) U/L ALT (9-52) U/L Alkaline Phosphatase (38-126) U/L Total Protein (6.3-8.2) g/dL Albumin (3.5-5.0) g/dL Amylase (30-110) U/L Lipase (23-300) U/L Urine Color Urine Appearance (Clear) Urine pH (5.0-8.0) Ur Specific [place] (1.001-1.035) Urine Protein (Negative) Urine Glucose (UA) (Negative) Urine Ketones (Negative) Urine Blood (Negative) Urine Nitrite (Negative) Urine Bilirubin (Negative) Urine Urobilinogen (<2.0) mg/dL Ur Leukocyte Esterase (Negative) Urine HCG, Qual (Not Detectd) Disposition Clinical Impression: Diarrhea Disposition: HOME SELF-CARE Condition: Good Instructions (If sedation given, give patient instructions): Acute Diarrhea (ED) Additional Instructions: Continue to drink plenty of fluids. Please follow-up with your doctor at your appointment on Thursday. Take Zofran as needed for nausea. Return here to the emergency department if you have any worsening symptoms. Prescriptions: Ondansetron [Zofran ODT] 4 mg PO Q8HR PRN #15 tab PRN Reason: Nausea Is patient prescribed a controlled substance at d/c from ED?: No Referrals: Rashi Hermosillo DO [Primary Care Provider] - 1-2 days Time of Disposition: 15:22
[2018-12-23 16:00] VITALS: PULSE 72
[2018-12-23 16:01] VITALS: BP 118/80; RESP 16; TEMP 98.2
== END 2018-12-23 16:00 | disposition home or self-care (01) ==
LOC: EC 11:55
DX: R19.7 Diarrhea, unspecified (principal); R11.0 Nausea; Z32.02 Encounter for pregnancy test, result negative; J45.909 Unspecified asthma, uncomplicated; F17.200 Nicotine dependence, unspecified, uncomplicated; Z88.2 Allergy status to sulfonamides; Z88.8 Allergy status to other drugs, medicaments and biological substances
CPT/HCPCS: 36415; 80053; 81003; 81025; 82150; 83690; 85025; 96360; 99284

== ENCOUNTER 2019-02-23 10:01 | Day surgery (SDC) | payer OTHER ==
--- NOTE | 2019-02-23 10:06 | P.GSHP ---
History of Present Illness H&P Date: 02/23/19 CHIEF COMPLAINT: GERD HISTORY OF PRESENT ILLNESS: The patient is a 33-year-old female who presents reports gastroesophageal reflux disease. Upper endoscopy was offered for further evaluation and management. PAST MEDICAL HISTORY: Please see list. PAST SURGICAL HISTORY: Please see list. MEDICATIONS: Please see list. ALLERGIES: Please see list. SOCIAL HISTORY: No illicit drug use FAMILY HISTORY: No reports of Crohn disease or ulcerative colitis. REVIEW OF ORGAN SYSTEMS: CONSTITUTIONAL: No reports of fevers or chills. GI: Denies any blood in stools or constipation. PHYSICAL EXAM: VITAL SIGNS: Stable GENERAL: Well-developed and pleasant in no acute distress. HEENT: No scleral icterus. Extraocular movements grossly intact. Moist buccal mucosa. NECK: Supple without lymphadenopathy. CHEST: Unlabored respirations. Equal bilateral excursions. CARDIOVASCULAR: Regular rate and rhythm. Distal 2+ pulses. ABDOMEN: Soft, nondistended. MUSCULOSKELETAL: No clubbing, cyanosis, or edema. ASSESSMENT: 1. Gastroesophageal reflux disease PLAN: 1. Recommend proceeding with an upper endoscopy Past Medical History Past Medical History: Asthma, Fibromyalgia, GERD/Reflux, Osteoarthritis (OA), Skin Disorder, Syncope Additional Past Medical History / Comment(s): Sjogren's syndrome. Past hx. ulcer. Chronic nausea. HX Kidney stones; SYNCOPE. ECZEMA. HAD HIATAL HERNIA REPAIR FEW WEEKS AGO, HAVING DYSPHAGIA SX. History of Any Multi-Drug Resistant Organisms: MRSA Date of last positivie culture/infection: 2009 MDRO Source:: left forearm Past Surgical History: Section, Cholecystectomy, Tubal Ligation Additional Past Surgical History / Comment(s): C/Sx3, EGD, colonoscopy. HIATAL HERNIA REPAIR. Past Anesthesia/Blood Transfusion Reactions: No Reported Reaction Additional Past Anesthesia/Blood Transfusion Reaction / Comment(s): STATES HAS VERY DIFFICULT TIME WITH PAIN CONTROL POST OP R/T AUTOIMMUNE DX Past Psychological History: Anxiety, Depression Smoking Status: Light tobacco smoker - Past Family History Sister(s) Family Medical History: Asthma Medications and Allergies Home Medications Medication Instructions Recorded Confirmed Type Albuterol Inhaler [Ventolin 2 puff INHALATION RT-Q4H PRN 07/20/14 12/23/18 History Inhaler] Prochlorperazine [Compazine] 10 mg PO TID PRN 09/10/18 12/23/18 History Ondansetron [Zofran ODT] 4 mg PO Q8HR PRN #15 tab 12/23/18 Rx Allergies Allergy/AdvReac Type Severity Reaction Status Date / Time Sulfa (Sulfonamide Allergy Rash/Hives Verified 12/23/18 12:36 Antibiotics) metoclopramide [From Reglan] AdvReac Unknown Verified 12/23/18 12:36
[2019-02-23 10:34] VITALS: RESP 16; TEMP 97.4
[2019-02-23] MEDS ORDERED: LACTATED RINGERS 1,000 ML IV ONE (10:43)
[2019-02-23] MEDS ORDERED: LIDOCAINE 1% 20 ML VIAL (10MG/ML) FOR IV START INTRADERMA ONE (10:43)
[2019-02-23] MEDS ORDERED: PROPOFOL 10 MG/ML 20 ML VIAL IV ONE (11:26)
--- NOTE | 2019-02-23 11:49 | P.PCN ---
Date of Procedure: 02/23/19 Description of Procedure: PREOPERATIVE DIAGNOSIS: Dysphagia. Gastroesophageal reflux disease Epigastric abdominal pain POSTOPERATIVE DIAGNOSIS: Dysphagia. Gastroesophageal reflux disease Epigastric abdominal pain Gastric ulcers with chronic gastritis OPERATION: Esophagogastroduodenoscopy with balloon dilation, 18-Citizen Of [place] Esophagogastroduodenoscopy with cold forceps biopsy SURGEON: Juli Dumont MD ANESTHESIA: MAC. INDICATIONS: The patient is a 33-year-old female who presents with a history of dysphagia, , burning epigastric abdominal pain. Benefits and risks of the procedure were described. Informed consent was obtained. DESCRIPTION: The patient was brought into the endoscopy suite and laid in the left lateral decubitus position. After a timeout was confirmed, the procedure was initiated. An Olympus gastroscope was passed and the stomach was entered. Mild gastritis was identified. The scope was advanced to the duodenum which was unremarkable. Retroflexion the scope confirmed a Hill grade 1 lower esophageal valve with an intact hiatal hernia repair. Superficial chronic gastric ulcers with gastritis was identified with cold forceps biopsy obtained. Next an 18-Citizen [place] balloon dilator was used for 1 minute to dilate the GE junction using [employer] balloon. No findings of full-thickness of tear of the lower esophageal sphincter was found. No full-thickness injury was encountered. The GI tract was desufflated. The patient tolerated the procedure well. FINDINGS: Squamocolumnar junction unremarkable at 40 cm. Gastric ulcers with chronic gastritis Hill grade 1 lower esophageal valve. No recurrent hiatal hernia No LA grade A esophagitis. RECOMMENDATIONS: Upper endoscopy as needed Plan - Discharge Summary New Discharge Prescriptions: No Action Albuterol Inhaler [Ventolin Inhaler] 2 puff INHALATION RT-Q4H PRN PRN Reason: Shortness Of Breath Prochlorperazine [Compazine] 10 mg PO TID PRN PRN Reason: Nausea busPIRone HCl [Buspar] 5 gm PO QAM Discharge Medication List Albuterol Inhaler [Ventolin Inhaler] 2 puff INHALATION RT-Q4H PRN 07/20/14 [History] Prochlorperazine [Compazine] 10 mg PO TID PRN 09/10/18 [History] busPIRone HCl [Buspar] 5 gm PO QAM 02/23/19 [History] Follow up Appointment(s)/Referral(s): Juli Dumont MD [STAFF PHYSICIAN] - As Needed Patient Instructions/Handouts: Esophageal Dilation (DC) Discharge Disposition: HOME SELF-CARE
[2019-02-23 12:12] VITALS: BP 125/84; PULSE 74
== END 2019-02-23 12:27 | disposition home or self-care (01) ==
LOC: ORWHC2ENDO 10:01
PROVIDERS: ATTEND Surgery Plastic and Reconstructive Surgery
DX: K29.50 Unspecified chronic gastritis without bleeding (principal); K25.7 Chronic gastric ulcer without hemorrhage or perforation; R13.10 Dysphagia, unspecified; K21.9 Gastro-esophageal reflux disease without esophagitis; J45.909 Unspecified asthma, uncomplicated; F17.210 Nicotine dependence, cigarettes, uncomplicated; M19.90 Unspecified osteoarthritis, unspecified site; F32.9 Major depressive disorder, single episode, unspecified; F41.9 Anxiety disorder, unspecified; M35.00 Sjogren syndrome, unspecified; M79.7 Fibromyalgia; L30.9 Dermatitis, unspecified; Z86.14 Personal history of Methicillin resistant Staphylococcus aureus infection; Z87.442 Personal history of urinary calculi; Z98.51 Tubal ligation status; Z90.49 Acquired absence of other specified parts of digestive tract; Z88.2 Allergy status to sulfonamides; Z88.8 Allergy status to other drugs, medicaments and biological substances; Z79.899 Other long term (current) drug therapy; Z82.5 Family history of asthma and other chronic lower respiratory diseases
CPT/HCPCS: 81025; 88305; 43239; 43249; J2704; C1726

== ENCOUNTER → 2019-03-03 | Outpatient (CLI) | payer OTHER ==
[2019-03-03 11:24] LABS: Basophils # (A) 0.1 k/uL (0-0.2); Basophils % (A) 1 %; Eosinophils # (A) 0.3 k/uL (0-0.7); Eosinophils % (A) 3 %; HCT 44.4 % (34.0-46.0); HGB 14.3 gm/dL (11.4-16.0); Lymphocytes % (A) 26 %; MCH 29.1 pg (25.0-35.0); MCHC 32.3 g/dL (31.0-37.0); MCV 90.1 fL (80.0-100.0); Mean Platelet Volume 8.2; Monocytes # (A) 0.3 k/uL (0-1.0); Monocytes % (A) 4 %; Neutrophils % (A) 65 %; Platelet Count 231 k/uL (150-450); RBC 4.93 m/uL (3.80-5.40); RDW 13.5 % (11.5-15.5); WBC 7.7 k/uL (3.8-10.6)
== END | disposition home or self-care (01) ==
LOC: LABPAT 10:38
PROVIDERS: ATTEND Anesthesiology
DX: Z01.812 Encounter for preprocedural laboratory examination (principal)
CPT/HCPCS: 36415; 85025

== ENCOUNTER 2019-03-04 06:02 | Day surgery (SDC) | payer OTHER ==
[2019-02-25 09:48] VITALS: BMI 23.6
[~2019-03-04 06:02] MED LIST changes: +DEXAMETHASONE SOD PHOSPHATE 10 MG/ML 1 ML VIAL IV ONE; +HEPARIN SODIUM,PORCINE 5,000 UNIT/ML 1 ML VIAL SQ ONE; +KETOROLAC 30 MG/ML 1 ML VIAL IVP SCH; +LACTATED RINGERS 1,000 ML IV SCH; +ONDANSETRON 4 MG/2 ML VIAL IVP ONE; +ONDANSETRON 4 MG/2 ML VIAL IVP PRN; +SCOPOLAMINE 1.5MG/72HR PATCH TRANSDERM ONE; +ceFAZolin IN SWFI 2 GM/20 ML SYRINGE IVP ONE
--- NOTE | 2019-03-04 06:24 | P.GSHP ---
History of Present Illness H&P Date: 03/04/19 CHIEF COMPLAINT: Ventral hernia. HISTORY OF PRESENT ILLNESS: The patient is a 33-year-old female who presents with a history of swelling along the epigastrium. Findings were consistent with ventrall hernia. Now she presents for further evaluation and management. PAST MEDICAL HISTORY: Please see list. PAST SURGICAL HISTORY: Please see list. MEDICATIONS: Please see list. ALLERGIES: Please see list. SOCIAL HISTORY: No illicit drug use FAMILY HISTORY: No reports of Crohn disease or ulcerative colitis. REVIEW OF ORGAN SYSTEMS: CONSTITUTIONAL: No reports of fevers or chills. GI: Denies any blood in stools or constipation. PHYSICAL EXAM: VITAL SIGNS: Stable GENERAL: Well-developed pleasant female in no acute distress. HEENT: No scleral icterus. Extraocular movements grossly intact. Moist buccal mucosa. NECK: Supple without lymphadenopathy. CHEST: Unlabored respirations. Equal bilateral excursions. CARDIOVASCULAR: Regular rate and rhythm. Distal 2+ pulses. ABDOMEN: Soft, nondistended. Tender along the epigastrium. MUSCULOSKELETAL: No clubbing, cyanosis, or edema. ASSESSMENT: 1. Ventral hernia. PLAN: 1. Recommend proceeding with robotic ventral hernia repair with mesh. 2. Benefits and risks of surgical intervention was discussed including possibility of open technique. 3. DVT prophylaxis. 4. Antibiotic prophylaxis. Past Medical History Past Medical History: Asthma, Fibromyalgia, GERD/Reflux, Osteoarthritis (OA), Skin Disorder, Syncope Additional Past Medical History / Comment(s): Sjogren's syndrome. Past hx. ulcer. Chronic nausea. HX Kidney stones; SYNCOPE. ECZEMA. HAD HIATAL HERNIA REPAIR FEW WEEKS AGO, HAVING DYSPHAGIA SX. History of Any Multi-Drug Resistant Organisms: MRSA Date of last positivie culture/infection: 2009 MDRO Source:: left forearm Past Surgical History: Section, Cholecystectomy, Tubal Ligation Additional Past Surgical History / Comment(s): C/Sx3, EGD, colonoscopy. HIATAL HERNIA REPAIR. Past Anesthesia/Blood Transfusion Reactions: No Reported Reaction Additional Past Anesthesia/Blood Transfusion Reaction / Comment(s): STATES HAS VERY DIFFICULT TIME WITH PAIN CONTROL POST OP R/T AUTOIMMUNE DX Smoking Status: Light tobacco smoker - Past Family History Sister(s) Family Medical History: Asthma Medications and Allergies Home Medications Medication Instructions Recorded Confirmed Type Albuterol Inhaler [Ventolin 2 puff INHALATION RT-Q4H PRN 07/20/14 02/25/19 History Inhaler] Prochlorperazine [Compazine] 10 mg PO TID PRN 09/10/18 02/25/19 History busPIRone HCl [Buspar] 5 gm PO QAM 02/23/19 02/25/19 History Allergies Allergy/AdvReac Type Severity Reaction Status Date / Time Sulfa (Sulfonamide Allergy Rash/Hives Verified 02/25/19 09:42 Antibiotics) metoclopramide [From Reglan] AdvReac Unknown Verified 02/25/19 09:42
[2019-03-04] MEDS ORDERED: fentaNYL (PF) 50 MCG/ML 2 ML AMP IV ONE (07:06)
[2019-03-04] MEDS ORDERED: MIDAZOLAM (PF) 2 MG/2 ML VIAL IV ONE (07:06)
[2019-03-04] MEDS ORDERED: PROPOFOL 10 MG/ML 20 ML VIAL IV ONE (07:25)
[2019-03-04] MEDS ORDERED: BUPIVACAIN-EPI 0.25%-1:200,000 30 ML VIAL SQ ONE ×2 (07:25→08:10)
[2019-03-04] MEDS ORDERED: MIDAZOLAM 2 MG/2 ML VIAL ONE (07:25)
[2019-03-04] MEDS ORDERED: KETOROLAC 30 MG/ML 1 ML VIAL ONE (07:25)
[2019-03-04] MEDS ORDERED: GLYCOPYRROLATE 0.2 MG/ML 2 ML VIAL ONE (07:25)
[2019-03-04] MEDS ORDERED: NEOSTIGMINE 1 MG/ML 10 ML VIAL ONE (07:25)
[2019-03-04] MEDS ORDERED: ROPIVACAINE 5 MG/ML 30 ML VIAL ONE (07:25)
[2019-03-04] MEDS ORDERED: KETAMINE 10 MG/ML 20 ML VIAL ONE (07:25)
[2019-03-04] MEDS ORDERED: ROCURONIUM BROMIDE 10 MG/ML 10 ML VIAL IV ONE (07:25)
[2019-03-04] MEDS ORDERED: LIDOCAINE 1% INJ 10MG/ML (20 ML MDV) ONE (07:25)
[2019-03-04] MEDS ORDERED: fentaNYL (PF) 50 MCG/ML 2 ML AMP ONE (07:25)
[2019-03-04] MEDS ORDERED: LACTATED RINGERS 1,000 ML IV ONE (08:20)
[2019-03-04] MEDS: VANCOMYCIN 1,000 MG in SODIUM CHLORIDE 0.9% 250 ML IVPB STA ×2 (08:20→08:26)
[2019-03-04] MEDS ORDERED: TRIAMCINOLONE ACETONIDE 40 MG/ML 1 ML VIAL INTRADERMA STA (08:28)
--- NOTE | 2019-03-04 09:21 | P.PCN ---
Date of Procedure: 03/04/19 Description of Procedure: SURGEON: JULI DUMONT MD PREOPERATIVE DIAGNOSES: 1. Epiastric abdominal pain with swelling 2. Incisional ventral hernia incarcerated, epigastrium 3. Gastroesophageal reflux disease. 4. Sjogren's disease 5. Intractable nausea POSTOPERATIVE DIAGNOSES: 1. Epiastric abdominal pain with swelling 2. Incisional ventral hernia incarcerated, epigastrium 3. Gastroesophageal reflux disease. 4. Sjogren's disease 5. Intractable nausea 6. Abdominal wall skin tumor 3 x 1.5 cm OPERATION: 1. Robotic-assisted da Hima Xi laparoscopic repair of initial ventral hernia 3-cm with mesh, ventralight ST mesh 11.4 cm 2. Excision of abdominal wall mass, epigastrium, 3 x 1.5 cm Anesthesia: GETA, regional, local Estimated Blood Loss (ml): 5 Pathology: Abdominal wall tumor Condition: stable Disposition: same day Operative Findings: 1. Mesh placed preperitoneal approach, abdominal wall floor explored, palpable tumor and subcutaneous tissue excised 3 x 1.5 cm 2. Console time 32 minutes INDICATIONS: The patient is a 33-year-old female who presents ventral hernia of the epigastrium at the prior incision. Surgical intervention with laparoscopic versus robotic and open techniques were reviewed. Placement of mesh was also reviewed. Benefits and risks were thoroughly described. Informed consent was obtained. DESCRIPTION OF PROCEDURE: The patient was brought into the operating room and laid in supine position. After general induction, the abdomen had been prepped and draped in standard sterile fashion. Ioban draping was also placed. Prior to incision, a timeout protocol was confirmed with surgical team regarding the patient's name including procedures to be performed. The robot was primed prior to the procedure. A field block using local anesthetic was placed along hernia site including the proposed port sites. Initial incision was made with an #11 blade along the left upper quadrant. A 0 degree 5 mm laparoscopic trocar entry was performed and insufflated. An 8 mm port was placed along the right upper quadrant and another at the epigastrium under direct localization. The 5- mm port was exchanged for an 8 mm robotic port. Placements of the ports were 15 cm from the target anatomy and 10 cm apart. The [employer] robot was previously primed, prepped and draped then docked along the left side of the patient. I then sat at the robot [employer] console where working arms of the robot including Bovie cautery connected to robotic scissors, needle funeral limousine driver, and graspers placed by the bilingual administrative assistant. Diagnostic laparoscopy demonstrated no injury to bowel viscera or mesentery. A small defect was found just inferior to the falciform ligament where the peritoneum was incised to explore the abdominal wall floor. The abdominal floor was explored to the level of the umbilicus without a large defect the identified. Next, ventralight ST mesh 11.4 cm was cut to size of a patch over the proposed defect and placed in a preperitoneal space with the rough side towards the abdominal wall. 2-0 VLOC 9 inch sutures were used to fixate the mesh. The peritoneum was oversewn with complete closure of the defect. A final endoscopic imaging was obtained. All instruments and pneumoperitoneum were evacuated from the abdominal cavity. The da Hima Xi robot was undocked from the patient. I re-scrubbed into the case for closure of incisions. At the epigastrium, palpable abdominal wall tumor of the subcutaneous tissue to fascia was cut and removed 3 x 1.5 cm. All incisions were reapproximated using 4-0 Monocryl in an interrupted subcuticular fashion. Liquid glue was applied to the skin after cleansing the skin with normal saline and dilute hydrogen peroxide. Optifoam tape and glue was placed over all incisions. Optifoam was placed along the epigastrium incision. An abdominal binder was placed. At the end of the procedure, needle, sponge, and instrument count had been verified correct by surgical instrument technician. The patient was taken to the postanesthesia care unit in stable condition. Plan - Discharge Summary Discharge Rx Participant: Yes New Discharge Prescriptions: New HYDROcodone/APAP 5-325MG [Hanson 5-325] 1 tab PO Q4HR PRN 3 Days #18 tab PRN Reason: Pain Ibuprofen [Motrin] 600 mg PO Q8HR PRN #30 tab PRN Reason: Pain No Action Albuterol Inhaler [Ventolin Inhaler] 2 puff INHALATION RT-Q4H PRN PRN Reason: Shortness Of Breath Prochlorperazine [Compazine] 10 mg PO TID PRN PRN Reason: Nausea busPIRone HCl [Buspar] 5 gm PO QAM Discharge Medication List Albuterol Inhaler [Ventolin Inhaler] 2 puff INHALATION RT-Q4H PRN 07/20/14 [History] Prochlorperazine [Compazine] 10 mg PO TID PRN 09/10/18 [History] busPIRone HCl [Buspar] 5 gm PO QAM 02/23/19 [History] HYDROcodone/APAP 5-325MG [Hanson 5-325] 1 tab PO Q4HR PRN 3 Days #18 tab 03/04/19 [Rx] Ibuprofen [Motrin] 600 mg PO Q8HR PRN #30 tab 03/04/19 [Rx] Follow up Appointment(s)/Referral(s): Juli Dumont MD [STAFF PHYSICIAN] - 03/08/19 Patient Instructions/Handouts: Abdominal Binder (DC), Ventral Hernia Repair (DC) Activity/Diet/Wound Care/Special Instructions: No lifting over 10 pounds for 2 weeks, March 18. January shower. No bathtub soaks. Discharge Disposition: HOME SELF-CARE
[2019-03-04 09:34] VITALS: TEMP 98.3
[2019-03-04 09:50] VITALS: RESP 16
[2019-03-04] MEDS: HYDROmorphone 0.5 MG/0.5 ML SYRINGE IVP PRN ×4 (10:02→10:27)
[2019-03-04] MEDS ORDERED: ONDANSETRON 4 MG/2 ML VIAL IVP ONE (10:14)
[2019-03-04 10:59] VITALS: BP 116/74; PULSE 76
--- NOTE | 2019-03-04 14:07 | P.ANPRN ---
Procedure Note - Anesthesia - Nerve Block Performed Bilateral Rectus Abdominis Single Time Out Performed: Yes Date of Procedure: 03/04/19 Procedure Start Time: : Procedure Stop Time: :15 Location of Patient Procedure: PreOp Indication: Acute Post-Operative Pain, Analgesia, Dx/Pain Location, Requested by physician Sedation Type: Sedate with meaningful contact maintained Position: Supine Catheter: None Needle Types: On-Q Needle Gauge: 20 Injectate: 0.5% Ropivacaine (see comment for volume) Blood Aspirated: No Pain Paresthesia on Injection Noted: No Resistance on Injection: Normal Events: Uneventful and Well Tolerated (15 ml ropi 0.5% on each side)
== END 2019-03-04 11:29 | disposition home or self-care (01) ==
LOC: OR 06:02
PROVIDERS: ATTEND Surgery Plastic and Reconstructive Surgery
DX: K43.0 Incisional hernia with obstruction, without gangrene (principal); L90.5 Scar conditions and fibrosis of skin; K21.9 Gastro-esophageal reflux disease without esophagitis; M35.00 Sjogren syndrome, unspecified; R11.0 Nausea; J45.909 Unspecified asthma, uncomplicated; M79.7 Fibromyalgia; M19.90 Unspecified osteoarthritis, unspecified site; L30.9 Dermatitis, unspecified; F17.210 Nicotine dependence, cigarettes, uncomplicated; Z98.890 Other specified postprocedural states; Z90.49 Acquired absence of other specified parts of digestive tract; Z98.51 Tubal ligation status; Z79.899 Other long term (current) drug therapy; Z88.2 Allergy status to sulfonamides; Z88.8 Allergy status to other drugs, medicaments and biological substances; Z86.14 Personal history of Methicillin resistant Staphylococcus aureus infection
CPT/HCPCS: 49655; 81025; 64488; 88302; C1781; J2250 ×2; J3370; J1644; J1100; J2710; J2405; J2001; J3010; J1885; J2795; J2704; J1170; J0690; 88305

== ENCOUNTER → 2019-09-19 | Outpatient (CLI) | payer OTHER ==
--- NOTE | 2019-09-19 15:26 | US ---
EXAMINATION TYPE: US pelvis complete transvag DATE OF EXAM: 09/19/2019 COMPARISON: 09/10/2018 CLINICAL HISTORY: 34-year-old female R10.2 PELVIC PAIN, N92.0 MENORRHAGIA. Pt states cramping, vagina l bleeding since June TECHNIQUE: Transvaginal (TV) and Transabdominal (TA) . Transabdominal sonographic images of the pel vis were acquired. Transvaginal sonographic images were medically necessary to better assess the fol lowing anatomy: Endometrium Date of LMP: Pt states vaginal bleeding since June FINDINGS: EXAM MEASUREMENTS: Uterus: 8.8 x 4.6 x 6.3 cm Endometrial Stripe: 1.0 cm Right Ovary: 2.8 x 2.0 x 2.7 cm Left Ovary: 3.3 x 2.0 x 3.0 cm 1. Uterus: Anteverted, Heterogeneous 2. Endometrium: A few punctate calcifications along the anterior endometrium. 3. Right Ovary: Dominant follicle measuring 2.2 x 1.3 x 1.5 cm 4. Left Ovary: Hypoechoic lesion= 2.5 x 1.7 x 2.3 cm, possible corpus luteum. 5. Bilateral Adnexa: wnl 6. Posterior cul-de-sac: wnl IMPRESSION: 1. A few punctate calcifications along the anterior endometrium are nonspecific. Possible sequela of prior infection or instrumentation. Clinically correlate. 2. Endometrial stripe measures 1 cm thick. 3. No pelvic free fluid.
== END | disposition home or self-care (01) ==
LOC: RADUSWWP 12:01
PROVIDERS: ATTEND Obstetrics & Gynecology
DX: N85.8 Other specified noninflammatory disorders of uterus (principal); N92.0 Excessive and frequent menstruation with regular cycle
CPT/HCPCS: 76830; 76856

== ENCOUNTER → 2019-11-01 | Outpatient (CLI) | payer OTHER ==
[2019-11-01 17:45] LABS: Basophils # (A) 0.1 k/uL (0-0.2); Basophils % (A) 1 %; Eosinophils # (A) 0.5 k/uL (0-0.7); Eosinophils % (A) 5 %; HCT 44.7 % (34.0-46.0); HGB 14.1 gm/dL (11.4-16.0); Lymphocytes # (A) 2.6 k/uL (1.0-4.8); Lymphocytes % (A) 25 %; MCHC 31.6 g/dL (31.0-37.0); MCV 95.2 fL (80.0-100.0); Mean Platelet Volume 7.7; Monocytes # (A) 0.4 k/uL (0-1.0); Monocytes % (A) 4 %; Neutrophils # (A) 6.6 k/uL (1.3-7.7); Neutrophils % (A) 64 %; Platelet Count 289 k/uL (150-450); RBC 4.69 m/uL (3.80-5.40); RDW 12.3 % (11.5-15.5); WBC 10.3 k/uL (3.8-10.6)
[2019-11-01 17:53] LABS: African American GFR (CKD) >90 (>60 ml/min/1.73 sqM); Anion Gap 10 mmol/L; Blood Urea Nitrogen 16 mg/dL (7-17); Calcium 9.7 mg/dL (8.4-10.2); Carbon Dioxide 22 mmol/L (22-30); Chloride 106 mmol/L (98-107); Glucose 106 mg/dL (74-99); Non-African American GFR(CKD) >90 (>60 ml/min/1.73 sqM); Potassium 4.3 mmol/L (3.5-5.1); Sodium 138 mmol/L (137-145)
== END | disposition home or self-care (01) ==
LOC: LABPAT 16:54
PROVIDERS: ATTEND Obstetrics & Gynecology
DX: Z01.812 Encounter for preprocedural laboratory examination (principal)
CPT/HCPCS: 80048; 85025

== ENCOUNTER 2019-11-10 05:32 | Day surgery (SDC) | payer OTHER ==
[2019-11-04 12:05] VITALS: BMI 25.0
[2019-11-10] MEDS ORDERED: DEXAMETHASONE SOD PHOSPHATE 10 MG/ML 1 ML VIAL IV ONE (05:42)
[2019-11-10] MEDS ORDERED: MIDAZOLAM 2 MG/2 ML VIAL IV PRN (05:42)
[2019-11-10] MEDS ORDERED: HYDROmorphone 0.5 MG/0.5 ML SYRINGE IVP PRN ×2 (05:42→07:01)
[2019-11-10] MEDS ORDERED: ONDANSETRON 4 MG/2 ML VIAL IVP ONE ×2 (05:42→08:47)
[2019-11-10] MEDS ORDERED: fentaNYL (PF) 50 MCG/ML 2 ML AMP IV PRN (05:42)
[2019-11-10] MEDS ORDERED: LIDOCAINE 1% 20 ML VIAL (10MG/ML) FOR IV START INTRADERMA PRN (05:42)
[2019-11-10] MEDS ORDERED: SCOPOLAMINE 1.5MG/72HR PATCH TRANSDERM ONE (06:15)
[2019-11-10] MEDS: LACTATED RINGERS 1,000 ML IV SCH ×2 (06:15→18:35)
[2019-11-10] MEDS ORDERED: LIDOCAINE 1% 20 ML VIAL (10MG/ML) FOR IV START INTRADERMA ONE (06:15)
--- NOTE | 2019-11-10 06:56 | P.HPOB ---
History of Present Illness H&P Date: 11/10/19 Chief Complaint: Menorrhagia and dysmenorrhea 34-year-old presents for total laparoscopic hysterectomy with da Hima and diagnostic cystoscopy due to menorrhagia and dysmenorrhea. Review of Systems All systems: negative Constitutional: Denies chills, Denies fever Eyes: denies blurred vision, denies pain Ears, nose, mouth and throat: Denies headache, Denies sore throat Cardiovascular: Denies chest pain, Denies shortness of breath Respiratory: Denies cough Gastrointestinal: Denies abdominal pain, Denies diarrhea, Denies nausea, Denies vomiting Genitourinary: Denies dysuria, Denies hematuria Musculoskeletal: Denies myalgias Integumentary: Denies pruritus, Denies rash Neurological: Denies numbness, Denies weakness Psychiatric: Denies anxiety, Denies depression Endocrine: Denies fatigue, Denies weight change Past Medical History Past Medical History: Asthma, Fibromyalgia, GERD/Reflux, Osteoarthritis (OA), Skin Disorder, Syncope Additional Past Medical History / Comment(s): Sjogren's syndrome. Past hx stomach ulcer. Chronic nausea. Hx Kidney stones. Eczema. Hx HIATAL HERNIA REPAIR. Very heavy menses since 06/2019. History of Any Multi-Drug Resistant Organisms: MRSA Date of last positivie culture/infection: 2009 MDRO Source:: left forearm Past Surgical History: Section, Cholecystectomy, Hernia Repair, Tubal Ligation Additional Past Surgical History / Comment(s): C/S x3, EGD, colonoscopy. HIATAL HERNIA REPAIR. Incision hernia w/ mesh. Past Anesthesia/Blood Transfusion Reactions: Blood Transfusion Reaction, Motion Sickness Additional Past Anesthesia/Blood Transfusion Reaction / Comment(s): STATES VERY DIFFICULT TIME WITH PAIN CONTROL POST OP R/T AUTOIMMUNE DX Smoking Status: Current every day smoker - Past Family History Sister(s) Family Medical History: Asthma Medications and Allergies Home Medications Medication Instructions Recorded Confirmed Type Albuterol Inhaler [Ventolin 2 puff INHALATION RT-Q4H PRN 07/20/14 11/04/19 History Inhaler] Prochlorperazine [Compazine] 10 mg PO TID PRN 09/10/18 11/04/19 History Acetaminophen [Tylenol Extra 500 - 1,000 mg PO DIRECTED PRN 11/04/19 11/04/19 History Strength] Ibuprofen [Motrin] 400 mg PO Q8HR PRN 11/04/19 11/04/19 History Allergies Allergy/AdvReac Type Severity Reaction Status Date / Time Sulfa (Sulfonamide Allergy Rash/Hives Verified 11/04/19 11:46 Antibiotics) metoclopramide [From Reglan] AdvReac Unknown Verified 11/04/19 11:46 Exam Osteopathic Statement: *. No significant issues noted on an osteopathic structural exam other than those noted in the History and Physical/Consult. Vital Signs Temp Pulse Resp BP Pulse Ox 11/10/19 06:02 97.8 F 84 16 124/85 100 Intake and Output 11/09/19 11/09/19 11/10/19 14:59 22:59 06:59 Other: Weight 72.2 kg Heart: Regular rate and rhythm Lungs: Clear to auscultation bilaterally Abdomen: Soft, nontender Extremities: Negative Homans sign Assessment and Plan (1) Menorrhagia Current Visit: Yes Status: Acute Code(s): N92.0 - EXCESSIVE AND FREQUENT MENSTRUATION WITH REGULAR CYCLE SNOMED Code(s): 365222237 (2) Dysmenorrhea Current Visit: Yes Status: Acute Code(s): N94.6 - DYSMENORRHEA, UNSPECIFIED SNOMED Code(s): 566874640 Plan: 1. Total laparoscopic hysterectomy with da Hima, diagnostic cystoscopy.
[2019-11-10] MEDS ORDERED: NALOXONE 0.4 MG/ML 1 ML VIAL IV PRN (07:01)
[2019-11-10] MEDS ORDERED: KETOROLAC 30 MG/ML 1 ML VIAL IVP PRN (07:01)
[2019-11-10] MEDS ORDERED: ONDANSETRON 4 MG/2 ML VIAL IVP PRN (07:01)
[2019-11-10] MEDS ORDERED: NALBUPHINE 10 MG/ML (1 ML AMP) IV PRN (07:01)
[2019-11-10] MEDS ORDERED: SUCCINYLCHOLINE CHLORIDE 100 MG/5 ML SYR IV ONE (07:09)
[2019-11-10] MEDS ORDERED: LIDOCAINE 1% INJ 10MG/ML (20 ML MDV) ONE (07:09)
[2019-11-10] MEDS ORDERED: HYDROmorphone (PF) 1 MG/ML ONE (07:09)
[2019-11-10] MEDS ORDERED: NALBUPHINE 10 MG/ML (1 ML AMP) ONE (07:09)
[2019-11-10] MEDS ORDERED: MORPHINE SULFATE (PF) 0.3 MG/0.3 ML SYR ONE (07:09)
[2019-11-10] MEDS ORDERED: MIDAZOLAM 2 MG/2 ML VIAL ONE (07:09)
[2019-11-10] MEDS ORDERED: KETOROLAC 30 MG/ML 1 ML VIAL ONE (07:09)
[2019-11-10] MEDS ORDERED: PROPOFOL 10 MG/ML 20 ML VIAL IV ONE (07:09)
[2019-11-10] MEDS ORDERED: ROCURONIUM BROMIDE 10 MG/ML 5 ML VIAL IV ONE (07:09)
[2019-11-10] MEDS ORDERED: GLYCOPYRROLATE 0.2 MG/ML 2 ML VIAL ONE (07:09)
[2019-11-10] MEDS ORDERED: NEOSTIGMINE 1 MG/ML 10 ML VIAL ONE (07:09)
[2019-11-10] MEDS ORDERED: fentaNYL (PF) 50 MCG/ML 2 ML AMP ONE (07:09)
[2019-11-10] MEDS ORDERED: NALBUPHINE 10 MG/ML (1 ML AMP) IM STA (07:26)
[2019-11-10] MEDS ORDERED: BUPIVACAINE (PF) 0.25% 30 ML VIAL SQ ONE ×2 (07:37→08:25)
--- NOTE | 2019-11-10 08:37 | P.OP ---
Date of Procedure: 11/10/19 Preoperative Diagnosis: 1. Menorrhagia 2. Dysmenorrhea Postoperative Diagnosis: 1. Menorrhagia 2. Dysmenorrhea Procedure(s) Performed: Total laparoscopic hysterectomy with da Hima xi, diagnostic cystoscopy Anesthesia: MARYLOU Surgeon: Kelly Polanco Cell Installer #1: Jensen Durant Estimated Blood Loss (ml): 10 IV fluids (ml): 400 Urine output (ml): 500 Pathology: other (Uterus and cervix) Condition: stable Disposition: PACU Operative Findings: Normal uterus, tubes, ovaries. Uterus sounded to 10 cm, cervix was 3 cm. Description of Procedure: Patient taken the operating room where general anesthesia was obtained without difficulty. She is prepped and draped in normal sterile fashion dorsal lithotomy position, legs placed in the Mark stirrups. Weighted speculum placed in the vagina and the anterior lip the cervix was grasped with single-tooth tenaculum. The uterus sounded to 10 cm and the cervix diameter was 3 cm. The appropriate manipulator tip and ring were placed on the Ninfa manipulator. The Ninfa manipulator was then placed in the uterus. Ramos catheter was also placed. Attention was then turned to the abdomen and gloves were changed. A 5 mm supraumbilical incision was made the scalpel and a 5 mm optical trocar was placed under direct visualization. 10 cm to the right of this and 2 cm down a 5 mm incision was made and 8 mm da Hima port was placed under direct visualization. Same measurements on the opposite side of the patient's abdomen, the 5 mm incision was made and 8 mm da Hima port was placed under direct visualization. In the left upper quadrant a 10 mm incision was made and a 10 mm optical trocar was placed under direct visualization. The 5 mm optical trocar was then replaced with the 8 mm da Hima camera port. The robot was docked on patient's right side. The camera was introduced and then the monopolar curved scissor and [place] bipolar placed under direct visualization. I broke scrub and went to the physician console. The left utero-ovarian ligament was cauterized with the [place] bipolar and cut with monopolar curved scissors. The left round ligament was cauterized with the [place] bipolar and cut with monopolar curved scissors. The posterior leaf of the broad ligament was taken down using the monopolar curved scissors. Anterior leaf of the broad ligament was then taken down using the monopolar curved scissors. The uterine artery was cauterized with the [place] bipolar and cut with monopolar curved scissors. The bladder flap was then started using the monopolar curved scissors. Attention was then turned to the right side of the patient's anatomy and the right utero-ovarian ligament was cauterized with the [place] bipolar and cut with monopolar curved scissors. The right round ligament was cauterized with the [place] bipolar and cut with monopolar curved scissors. Posterior leaf of the broad ligament was taken down using the monopolar curved scissors and the anterior leaf was taken down using the monopolar curved scissors. The uterine artery was cauterized the [place] bipolar cut with monopolar curved scissors. The bladder flap was then finished on this side. Anterior colpotomy was made using the monopolar curved scissors. The rest of the uterus was from the vaginal cuff by following the ring around with the monopolar curved scissors through the uterosacral ligaments back to the anterior portion. Once the uterus and cervix were amputated they were pulled through the vaginal cuff. Hemostasis was assured. The instruments were changed for the Cardier forcep and the harmony suture cut. The vaginal cuff was then closed using O stratafix barbed suture in a running fashion. Hemostasis was again assured and the pelvis was irrigated. All instruments were removed from the abdomen and the robot was undocked. I scrubbed back in to perform a cystoscopy. There were jets from both ureteral orifices. The abdominal incisions were closed with 4-0 Vicryl in a subcuticular fashion. Patient tolerated the procedure well, sponge and instrument counts correct 2 and she was taken to recovery room in stable condition condition
[2019-11-10] MEDS: diphenhydrAMINE 50 MG/ML 1 ML VIAL IVP PRN ×3 (09:08→21:02)
[2019-11-10] MEDS ORDERED: SIMETHICONE 80 MG CHEWABLE PO PRN (09:54)
[2019-11-10] MEDS ORDERED: ALBUTEROL NEBULIZED 2.5 MG/3 ML INHALATION PRN (09:54)
[2019-11-10] MEDS ORDERED: PROCHLORPERAZINE 10 MG TAB PO PRN (09:54)
[2019-11-10] MEDS ORDERED: METOCLOPRAMIDE 5 MG/ML 2 ML VIAL IVP PRN (09:54)
[2019-11-10] MEDS: HYDROcodone/APAP 7.5-325MG 1 EACH TAB PO PRN ×3 (11:55→22:53)
[2019-11-10] MEDS: IBUPROFEN 600 MG TAB PO PRN ×2 (15:07→20:34)
[2019-11-11] MEDS: IBUPROFEN 600 MG TAB PO PRN (03:24)
[2019-11-11] MEDS: diphenhydrAMINE 50 MG/ML 1 ML VIAL IVP PRN (03:24)
--- NOTE | 2019-11-11 06:33 | P.PN ---
Progress Note - Text Progress Note Date: 11/11/19 Postoperative day 1 status post hysterectomy under general anesthesia with intrathecal Duramorph for postoperative analgesia.The patient is doing well, there is mild generalized skin itching. The patient denies any paresthesia or weakness in the lower extremities There are no other anesthesia related complications. Further management as per the patient primary team.
[2019-11-11 06:52] LABS: Basophils # (A) 0.1 k/uL (0-0.2); Basophils % (A) 1 %; Eosinophils # (A) 0.7 k/uL (0-0.7); Eosinophils % (A) 5 %; HCT 36.4 % (34.0-46.0); HGB 12.1 gm/dL (11.4-16.0); Lymphocytes # (A) 1.9 k/uL (1.0-4.8); Lymphocytes % (A) 13 %; MCH 31.2 pg (25.0-35.0); MCHC 33.2 g/dL (31.0-37.0); MCV 93.9 fL (80.0-100.0); Mean Platelet Volume 8.2; Monocytes # (A) 0.6 k/uL (0-1.0); Monocytes % (A) 4 %; Neutrophils # (A) 11.4 k/uL (1.3-7.7); Neutrophils % (A) 77 %; Platelet Count 224 k/uL (150-450); RBC 3.88 m/uL (3.80-5.40); RDW 12.5 % (11.5-15.5); WBC 14.8 k/uL (3.8-10.6)
[2019-11-11] MEDS: HYDROcodone/APAP 7.5-325MG 1 EACH TAB PO PRN (07:53)
[2019-11-11] MEDS ORDERED: diphenhydrAMINE 25 MG CAP PO PRN (07:56)
--- NOTE | 2019-11-11 07:56 | P.DS ---
Providers Date of admission: 11/10/2019 Expected date of discharge: 11/11/19 Attending physician: Kelly Polanco Primary care physician: Rashi Hermosillo - Discharge Diagnosis(es) (1) Menorrhagia Current Visit: Yes Status: Resolved (2) Dysmenorrhea Current Visit: Yes Status: Resolved (3) History of robot-assisted laparoscopic hysterectomy Current Visit: Yes Status: Acute Hospital Course: Patient presented for total laparoscopic hysterectomy using da Hima with diagnostic cystoscopy due to menorrhagia and dysmenorrhea. She underwent this procedure without complication. Postoperatively her pain was well-controlled and she was tolerating a regular diet. Passing flatus and voiding without difficulty. She she denies nausea, vomiting, chest pain, shortness of breath or calf pain. She is, however, feeling a lot of pruritus. It was worse in the evening last night, it seems to be improved today but she still itching. There is erythema around the edges of her abdomen, and on her face. A clear whether this is from the adhesive or the Duramorph spinal. Her symptoms are improving with time, and with Benadryl. Sinus her symptoms continue to improve, she'll be discharged home to follow-up with me in 3 weeks. Plan - Discharge Summary Discharge Rx Participant: Yes New Discharge Prescriptions: New Ibuprofen [Motrin] 600 mg PO Q6HR PRN #30 tab PRN Reason: Mild Discomfort HYDROcodone/APAP 7.5-325MG [[place] 7.5-325] 1 each PO Q6H PRN #12 tab PRN Reason: Pain No Action Albuterol Inhaler [Ventolin Inhaler] 2 puff INHALATION RT-Q4H PRN PRN Reason: Shortness Of Breath Prochlorperazine [Compazine] 10 mg PO TID PRN PRN Reason: Nausea Ibuprofen [Motrin] 400 mg PO Q8HR PRN PRN Reason: Pain Acetaminophen [Tylenol Extra Strength] 500 - 1,000 mg PO DIRECTED PRN PRN Reason: Pain Discharge Medication List Albuterol Inhaler [Ventolin Inhaler] 2 puff INHALATION RT-Q4H PRN 07/20/14 [History] Prochlorperazine [Compazine] 10 mg PO TID PRN 09/10/18 [History] Acetaminophen [Tylenol Extra Strength] 500 - 1,000 mg PO DIRECTED PRN 11/04/19 [History] Ibuprofen [Motrin] 400 mg PO Q8HR PRN 11/04/19 [History] HYDROcodone/APAP 7.5-325MG [[place] 7.5-325] 1 each PO Q6H PRN #12 tab 11/11/19 [Rx] Ibuprofen [Motrin] 600 mg PO Q6HR PRN #30 tab 11/11/19 [Rx] Follow up Appointment(s)/Referral(s): Kelly Polanco DO [Doctor of Osteopathic Medicine] - 3 Weeks Discharge Disposition: HOME SELF-CARE
[2019-11-11 08:01] VITALS: BP 122/68; PULSE 78; TEMP 98.4
[2019-11-11 10:22] VITALS: RESP 16
== END 2019-11-11 10:20 | disposition home or self-care (01) ==
LOC: OR 05:32 → 4FBP 08:46 → OR 11-11 10:20
PROVIDERS: ATTEND Obstetrics & Gynecology
DX: N80.0 Endometriosis of uterus (principal); N72 Inflammatory disease of cervix uteri; J45.909 Unspecified asthma, uncomplicated; M79.7 Fibromyalgia; K21.9 Gastro-esophageal reflux disease without esophagitis; M19.90 Unspecified osteoarthritis, unspecified site; M35.00 Sjogren syndrome, unspecified; F17.200 Nicotine dependence, unspecified, uncomplicated; Z87.19 Personal history of other diseases of the digestive system; Z87.442 Personal history of urinary calculi; Z86.14 Personal history of Methicillin resistant Staphylococcus aureus infection; Z90.49 Acquired absence of other specified parts of digestive tract; Z98.891 History of uterine scar from previous surgery; Z83.6 Family history of other diseases of the respiratory system; Z79.899 Other long term (current) drug therapy; Z88.2 Allergy status to sulfonamides; Z86.19 Personal history of other infectious and parasitic diseases; Z88.8 Allergy status to other drugs, medicaments and biological substances; Z98.890 Other specified postprocedural states; Z79.1 Long term (current) use of non-steroidal anti-inflammatories (NSAID)
CPT/HCPCS: 81025; 86900; 86901; 85025; 86850; 88307; 58570; J2250; J1200 ×2; J1100; J2300; J2710; J0690; J2405; J2001; J2274; J3010; J1885; J1170; J0330; J2704

== ENCOUNTER 2020-02-03 15:02 | Emergency (ER) | payer OTHER ==
[2020-02-03 15:14] VITALS: RESP 18
[2020-02-03] MEDS ORDERED: MORPHINE SULFATE 4 MG/ML SYRINGE IVP STA (16:16)
[2020-02-03] MEDS ORDERED: ONDANSETRON 4 MG/2 ML VIAL IVP STA (16:16)
[2020-02-03] MEDS ORDERED: SODIUM CHLORIDE 0.9% 1,000 ML IV ONE (16:29)
[2020-02-03] MEDS ORDERED: SODIUM CHLORIDE 0.9% 1,000 ML IV SCH (16:30)
[2020-02-03 16:34] LABS: Basophils # (A) 0.1 k/uL (0-0.2); Basophils % (A) 1 %; Eosinophils # (A) 0.3 k/uL (0-0.7); Eosinophils % (A) 3 %; HCT 43.5 % (34.0-46.0); HGB 14.3 gm/dL (11.4-16.0); Lymphocytes # (A) 1.3 k/uL (1.0-4.8); Lymphocytes % (A) 14 %; MCH 30.7 pg (25.0-35.0); MCHC 32.9 g/dL (31.0-37.0); MCV 93.2 fL (80.0-100.0); Monocytes # (A) 0.5 k/uL (0-1.0); Monocytes % (A) 5 %; Neutrophils # (A) 7.1 k/uL (1.3-7.7); Neutrophils % (A) 76 %; Platelet Count 251 k/uL (150-450); RBC 4.67 m/uL (3.80-5.40); RDW 12.5 % (11.5-15.5); WBC 9.4 k/uL (3.8-10.6)
[2020-02-03 16:42] LABS: Appearance,Urine Clear (Clear); Bacteria,Urine Occasional /hpf; Bilirubin,Urine Negative (Negative); Blood,Urine Negative (Negative); Color,Urine Light Yellow; Glucose,Urine (UA) Negative (Negative); Ketones,Urine Negative (Negative); Leukocyte Esterase,Urine Trace (Negative); Mucus,Urine Rare /hpf; Nitrite,Urine Negative (Negative); Protein,Urine Negative (Negative); RBC,Urine 1 /hpf (0-5); Specific Gravity,Urine 1.005 (1.001-1.035); Squamous Epithelial Cell,Urine 3 /hpf (0-4); Urobilinogen,Urine <2.0 mg/dL (<2.0); WBC,Urine 1 /hpf (0-5)
[2020-02-03 16:47] LABS: ALT 11 U/L (4-34); AST 24 U/L (14-36); African American GFR (CKD) >90 (>60 ml/min/1.73 sqM); Albumin 4.5 g/dL (3.5-5.0); Alkaline Phosphatase 92 U/L (38-126); Amylase 30 U/L (30-110); Anion Gap 9 mmol/L; Blood Urea Nitrogen 9 mg/dL (7-17); Calcium 9.6 mg/dL (8.4-10.2); Carbon Dioxide 22 mmol/L (22-30); Chloride 105 mmol/L (98-107); Glucose 91 mg/dL (74-99); Non-African American GFR(CKD) >90 (>60 ml/min/1.73 sqM); Potassium 4.3 mmol/L (3.5-5.1); Sodium 136 mmol/L (137-145); Total Bilirubin 0.5 mg/dL (0.2-1.3); Total Protein 7.5 g/dL (6.3-8.2)
--- NOTE | 2020-02-03 17:14 | CT ---
EXAMINATION TYPE: CT abdomen pelvis w con DATE OF EXAM: 02/03/2020 COMPARISON: Prior CT 07/07/2018 HISTORY: abdominal pain, diarrhea CT DLP: 829.1 mGycm Automated exposure control for dose reduction was used. TECHNIQUE: Helical acquisition of images from the lung bases through the pelvis have been completed. CONTRAST: Performed without Oral Contrast and with IV Contrast, patient injected with 100 mL of Isovue 300. FINDINGS: Breast prostheses are present. LUNG BASES: No significant abnormality is appreciated. AORTA: No significant abnormality is appreciated. LIVER/GB: Gallbladder is not seen. Liver shows no mass. PANCREAS: No significant abnormality is seen. SPLEEN: No significant abnormality is seen. ADRENALS: No significant abnormality is seen. KIDNEYS: Nonobstructive calculus measuring 3 mm present at the upper pole posterior calyx. REPRODUCTIVE ORGANS: Uterus and adnexal structures are not seen. BOWEL: Colon shows wall thickening. FREE AIR: No Free Air visible. ASCITES: Minimal free fluid in the pelvis. PELVIC ADENOPATHY: None visualized. RETROPERITONEAL ADENOPATHY: No Retroperitoneal Adenopathy visible. URINARY BLADDER: No significant abnormality is seen. OSSEOUS STRUCTURES: No significant abnormality is seen. IMPRESSION: CORRELATE FOR COLITIS. POSTOP CHANGES. FOLLOW-UP INDICATED. NONOBSTRUCTIVE RIGHT NEPHROLITHIASIS I S STABLE.
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
[2020-02-03 18:17] VITALS: BP 137/88; PULSE 78; TEMP 97.8
== END 2020-02-03 18:17 | disposition home or self-care (01) ==
LOC: EC 15:02
DX: K52.9 Noninfective gastroenteritis and colitis, unspecified (principal); K92.1 Melena; J45.909 Unspecified asthma, uncomplicated; F17.200 Nicotine dependence, unspecified, uncomplicated; F41.9 Anxiety disorder, unspecified; Z88.2 Allergy status to sulfonamides; Z88.8 Allergy status to other drugs, medicaments and biological substances; Z90.49 Acquired absence of other specified parts of digestive tract; Z90.710 Acquired absence of both cervix and uterus
CPT/HCPCS: 99284 ×2; 96374 ×2; 96375 ×2; 96361 ×2; 36415; 80053; 82150; 83690; 85025; 81001; 74177; J2270; J2405; Q9967

== ENCOUNTER → 2020-02-28 | Outpatient (CLI) | payer OTHER ==
[2020-02-28 13:06] LABS: HCT 43.8 % (34.0-46.0); HGB 14.5 gm/dL (11.4-16.0); MCH 31.7 pg (25.0-35.0); MCHC 33.1 g/dL (31.0-37.0); MCV 95.6 fL (80.0-100.0); Mean Platelet Volume 8.1; Platelet Count 256 k/uL (150-450); RBC 4.58 m/uL (3.80-5.40); RDW 12.7 % (11.5-15.5); WBC 6.8 k/uL (3.8-10.6)
[2020-02-28 15:52] LABS: Erythrocyte Sedimentation Rate 9 mm/hr (0-20)
[2020-02-28 20:01] LABS: ALT 18 U/L (8-44); AST 20 U/L (13-35); African American GFR (CKD) 85.7 (60.0-200.0); Albumin/Globulin Ratio 1.92 (1.60-3.17); Alkaline Phosphatase 86 U/L (41-126); C Reactive Protein <0.4 mg/dL (0.0-0.8); Calcium 9.4 mg/dL (8.7-10.3); Carbon Dioxide 24.8 mmol/L (21.6-31.8); Chloride 107 mmol/L (96-109); Globulin 2.4 g/dL (1.6-3.3); Glucose 84 mg/dL (70-110); Potassium 4.4 mmol/L (3.5-5.5); Sodium 138 mmol/L (135-145); Total Bilirubin 0.4 mg/dL (0.3-1.2)
[2020-02-28 20:35] LABS: Gliadin AB IgA, Deaminated NEGATIVE (NEGATIVE); Gliadin AB IgA, Unit <0.2 U/mL; Gliadin AB IgG, Deaminated NEGATIVE (NEGATIVE)
== END | disposition home or self-care (01) ==
LOC: LABWHC1 12:02 → EDSTATUS 12:06
PROVIDERS: ATTEND Nurse Practitioner
DX: K52.9 Noninfective gastroenteritis and colitis, unspecified (principal)
CPT/HCPCS: 36415; 80053; 83516; 83630; 83993; 85027; 85652; 86140; 87045; 87046; 87328; 87329

== ENCOUNTER 2020-03-09 08:24 | Day surgery (SDC) | payer OTHER ==
[2020-03-07 11:24] VITALS: BMI 25.8
[~2020-03-09 08:24] MED LIST changes: -DEXAMETHASONE SOD PHOSPHATE 10 MG/ML 1 ML VIAL IV ONE; -HEPARIN SODIUM,PORCINE 5,000 UNIT/ML 1 ML VIAL SQ ONE; -KETOROLAC 30 MG/ML 1 ML VIAL IVP SCH; +LIDOCAINE 1% (10MG/ML) FOR IV START INTRADERMA PRN; -LIDOCAINE 1% 20 ML VIAL (10MG/ML) FOR IV START INTRADERMA PRN; +MIDAZOLAM 2 MG/2 ML VIAL IV PRN; -ONDANSETRON 4 MG/2 ML VIAL IVP ONE; -ONDANSETRON 4 MG/2 ML VIAL IVP PRN; -SCOPOLAMINE 1.5MG/72HR PATCH TRANSDERM ONE; -ceFAZolin IN SWFI 2 GM/20 ML SYRINGE IVP ONE
[2020-03-09 08:42] VITALS: TEMP 97.6
[2020-03-09] MEDS ORDERED: PROPOFOL 10 MG/ML 20 ML VIAL IV ONE (09:03)
--- NOTE | 2020-03-09 09:21 | P.PCN ---
Date of Procedure: 03/09/20 Procedure(s) Performed: BRIEF HISTORY: Patient is a 34-year-old pleasant at female scheduled for an elective colonoscopy as a part of value should of chronic diarrhea for the last several months duration. She has bowel movements which are loose to watery in consistency with occasional blood in the stool. She went to the ER in January [address] of abdomen showed mild thickening of the colon suspicious for colitis. She was treated with Cipro and. She is on schedule for colonoscopy to evaluate further. PROCEDURE PERFORMED: Colonoscopy with random biopsy. PREOPERATIVE DIAGNOSIS: Chronic diarrhea. IV sedation per Anesthesia. PROCEDURE: After informed consent was obtained, the patient, was brought into the endoscopy unit. IV sedation was administered by Anesthesia under continuous monitoring. Digital rectal examination was normal. Initially the Olympus CF-160 flexible video colonoscope was then inserted in the rectum, gradually advanced into the cecum without any difficulty. Careful examination was performed as the scope was gradually being withdrawn. Ileocecal valve and the appendiceal orifice were visualized and appeared normal. Prep was excellent. The terminal ileum was intubated and appeared normal. Random biopsies were done from this area. Mucosa of the cecum, ascending colon, transverse colon, descending colon, sigmoid colon, and rectum appeared normal. Random biopsies were done from the ascending and descending colon to rule out microscopic/collagenous colitis Retroflexion was performed in the rectum and no lesions were seen. The patient tolerated the procedure well. IMPRESSION: Normal-appearing colon from rectum to cecum with no evidence of colitis or colorectal neoplasia. RECOMMENDATIONS: Findings of this examination were discussed with the patient as well as her family. She was advised to follow with the biopsy results. She'll be seen in office in 2-3 weeks.
[2020-03-09 09:28] VITALS: RESP 18
[2020-03-09 10:01] VITALS: BP 138/92; PULSE 93
== END 2020-03-09 09:55 | disposition home or self-care (01) ==
LOC: ORWHC2ENDO 08:24
PROVIDERS: ATTEND Internal Medicine Gastroenterology
DX: K52.9 Noninfective gastroenteritis and colitis, unspecified (principal); J45.909 Unspecified asthma, uncomplicated; F32.9 Major depressive disorder, single episode, unspecified; K21.9 Gastro-esophageal reflux disease without esophagitis; F17.210 Nicotine dependence, cigarettes, uncomplicated; Z88.1 Allergy status to other antibiotic agents; Z88.2 Allergy status to sulfonamides; Z79.899 Other long term (current) drug therapy; Z90.710 Acquired absence of both cervix and uterus; Z98.891 History of uterine scar from previous surgery; Z98.890 Other specified postprocedural states
CPT/HCPCS: 45380; J2704; 88305

== ENCOUNTER 2020-04-15 22:06 | Emergency (ER) | payer OTHER ==
[2020-04-15 22:16] VITALS: PULSE 90
[2020-04-15] MEDS ORDERED: SODIUM CHLORIDE 0.9% 1,000 ML IV STA (22:26)
[2020-04-15] MEDS ORDERED: MORPHINE SULFATE 2 MG/ML SYRINGE IVP STA (22:26)
[2020-04-15 22:39] LABS: Basophils # (A) 0.1 k/uL (0-0.2); Basophils % (A) 1 %; Eosinophils # (A) 0.5 k/uL (0-0.7); Eosinophils % (A) 4 %; HCT 40.9 % (34.0-46.0); HGB 14.5 gm/dL (11.4-16.0); Lymphocytes # (A) 3.1 k/uL (1.0-4.8); Lymphocytes % (A) 29 %; MCH 32.7 pg (25.0-35.0); MCHC 35.4 g/dL (31.0-37.0); MCV 92.3 fL (80.0-100.0); Mean Platelet Volume 7.8; Monocytes # (A) 0.5 k/uL (0-1.0); Monocytes % (A) 5 %; Neutrophils # (A) 6.5 k/uL (1.3-7.7); Neutrophils % (A) 60 %; Platelet Count 201 k/uL (150-450); RBC 4.43 m/uL (3.80-5.40); RDW 12.6 % (11.5-15.5); WBC 10.8 k/uL (3.8-10.6)
[2020-04-15 22:49] LABS: ALT 74 U/L (4-34); AST 190 U/L (14-36); African American GFR (CKD) >90 (>60 ml/min/1.73 sqM); Albumin 4.2 g/dL (3.5-5.0); Alkaline Phosphatase 85 U/L (38-126); Anion Gap 10 mmol/L; Blood Urea Nitrogen 9 mg/dL (7-17); Calcium 8.6 mg/dL (8.4-10.2); Carbon Dioxide 21 mmol/L (22-30); Chloride 103 mmol/L (98-107); Glucose 80 mg/dL (74-99); Non-African American GFR(CKD) 82 (>60 ml/min/1.73 sqM); Potassium 3.7 mmol/L (3.5-5.1); Sodium 134 mmol/L (137-145); Total Bilirubin 0.4 mg/dL (0.2-1.3); Total Protein 6.8 g/dL (6.3-8.2)
[2020-04-15 22:56] LABS: INR 0.9 (<1.2); Prothrombin Time 9.8 sec (9.0-12.0)
[2020-04-15 23:08] LABS: Partial Thromboplastin Time 21.6 sec (22.0-30.0)
--- NOTE | 2020-04-15 23:09 | CT ---
EXAMINATION TYPE: CT brain wo con DATE OF EXAM: 04/15/2020 COMPARISON: None HISTORY: syncope CT DLP: 1099.4 mGycm Automated exposure control for dose reduction was used. Multiple axial sections were obtained of the brain without contrast. Ventricles have normal size. There is no mass effect nor midline shift. There is no sign of intracran ial hemorrhage. Calvarium is intact. The skull base is intact. There is 8mm mucus retention cyst in t he left maxillary sinus. Impression . Negative unenhanced head CT scan.
--- NOTE | 2020-04-15 23:14 | XR ---
EXAMINATION TYPE: XR chest 2V DATE OF EXAM: 04/15/2020 COMPARISON: 10/14/2018 HISTORY: Syncope TECHNIQUE: FINDINGS: Heart and mediastinum are normal. Lungs are clear. Diaphragm is normal. There are chest michael ds. Bony thorax is intact. IMPRESSION: Normal chest. No change.
[2020-04-15 23:59] LABS: Appearance,Urine Clear (Clear); Bilirubin,Urine Negative (Negative); Blood,Urine Negative (Negative); Color,Urine Colorless; Glucose,Urine (UA) Negative (Negative); Ketones,Urine Negative (Negative); Leukocyte Esterase,Urine Negative (Negative); Nitrite,Urine Negative (Negative); Protein,Urine Negative (Negative); Specific Gravity,Urine 1.004 (1.001-1.035); Urobilinogen,Urine <2.0 mg/dL (<2.0)
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
[2020-04-16] MEDS ORDERED: KETOROLAC 30 MG/ML 1 ML VIAL IVP STA (00:16)
[2020-04-16 00:29] VITALS: BP 126/87; RESP 18; TEMP 98.9
== END 2020-04-16 00:29 | disposition home or self-care (01) ==
LOC: EC 22:06
DX: R55 Syncope and collapse (principal); R53.1 Weakness; R51 Headache; R07.89 Other chest pain; J45.909 Unspecified asthma, uncomplicated; F41.9 Anxiety disorder, unspecified; F32.9 Major depressive disorder, single episode, unspecified; R11.0 Nausea; F17.200 Nicotine dependence, unspecified, uncomplicated; Z79.51 Long term (current) use of inhaled steroids; Z79.899 Other long term (current) drug therapy; Z88.2 Allergy status to sulfonamides; Z88.8 Allergy status to other drugs, medicaments and biological substances; Z86.14 Personal history of Methicillin resistant Staphylococcus aureus infection
CPT/HCPCS: 36415; 93005; 80053; 84484; 85025; 85610; 85730; 81003; 81025; 71046; 70450; 99285; 96374; 96375; 96361 ×2; J2270

== ENCOUNTER 2020-05-30 13:16 | Emergency (ER) | payer OTHER ==
[2020-05-30 13:24] VITALS: RESP 18; TEMP 98
[2020-05-30] MEDS ORDERED: MORPHINE SULFATE 4 MG/ML SYRINGE IM STA (14:24)
--- NOTE | 2020-05-30 14:29 | ED ---
Fall HPI - General Chief Complaint: Fall Stated Complaint: fall from deck, lt sided pain Time Seen by Provider: 05/30/20 13:54 Source: patient, family Mode of arrival: wheelchair - History of Present Illness Initial Comments: Patient is a 34-year-old female presenting to emergency Department with complaints of pain in her left side after falling. Patient states she slipped on her deck and landed on the stairs mostly in her left side. She is having some left sided rib pain as well as left hip pain. She denies previous surgeries of her hip. She denies any chest pain or shortness of breath. She denies hitting her head or LOC. She denies any abdominal pain, nausea or vomiting. She states the pain is 8/10. She has no further complaints at this time. Upon arrival to the ER, her vitals are stable. - Related Data Home Medications Medication Instructions Recorded Confirmed Albuterol Inhaler (Mhu) [Ventolin 2 puff INHALATION RT-Q4H PRN 07/20/14 03/09/20 Inhaler] Prochlorperazine [Compazine] 10 mg PO TID PRN 09/10/18 03/09/20 Sertraline [Zoloft] 100 mg PO DAILY 03/07/20 03/09/20 busPIRone HCL [Buspar] 15 mg PO BID 03/07/20 03/09/20 Allergies Allergy/AdvReac Type Severity Reaction Status Date / Time Sulfa (Sulfonamide Allergy Rash/Hives Verified 05/30/20 13:30 Antibiotics) metoclopramide [From Reglan] AdvReac agitation, Verified 05/30/20 13:30 restlessness Review of Systems ROS Statement: Those systems with pertinent positive or pertinent negative responses have been documented in the HPI. ROS Other: All systems not noted in ROS Statement are negative. Past Medical History Past Medical History: Asthma, Fibromyalgia, GERD/Reflux, Osteoarthritis (OA), Skin Disorder, Syncope Additional Past Medical History / Comment(s): Sjogren's syndrome. Past hx. ulcer. Chronic nausea. HX Kidney stones; SYNCOPE. ECZEMA. HAD HIATAL HERNIA REPAIR FEW WEEKS AGO, HAVING DYSPHAGIA SX. History of Any Multi-Drug Resistant Organisms: MRSA Date of last positivie culture/infection: 2009 MDRO Source:: left forearm Past Surgical History: Section, Cholecystectomy, Hysterectomy, Tubal Ligation Additional Past Surgical History / Comment(s): C/Sx3, EGD, colonoscopy. HIATAL HERNIA REPAIR. Past Anesthesia/Blood Transfusion Reactions: No Reported Reaction Additional Past Anesthesia/Blood Transfusion Reaction / Comment(s): STATES HAS VERY DIFFICULT TIME WITH PAIN CONTROL POST OP R/T AUTOIMMUNE DX Past Psychological History: Anxiety, Depression Smoking Status: Current every day smoker Past Alcohol Use History: Daily Past Drug Use History: None Reported - Past Family History Sister(s) Family Medical History: Asthma General Exam - General Exam Comments Initial Comments: GENERAL: Patient is well-developed and well-nourished. Patient is nontoxic and in no acute distress, does look uncomfortable. HEAD: Atraumatic, normocephalic. EYES: Pupils equal round and reactive to light, extraocular movements intact, sclera anicteric, conjunctiva are normal. Eyelids were unremarkable. ENT: TMs normal, nares patent, oropharynx clear without exudates. Moist mucous membranes. NECK: Normal range of motion, supple without lymphadenopathy or JVD. LUNGS: Unlabored respirations. Breath sounds clear to auscultation bilaterally and equal. No wheezes rales or rhonchi. HEART: Regular rate and rhythm without murmurs, rubs or gallops. ABDOMEN: Soft, nontender, normoactive bowel sounds. No guarding, no rebound. No masses appreciated. : Deferred MUSCULOSKELETAL: Pain with left hip active range of motion but does have full range. She does have pain with palpation of the lateral aspect of the left hip. Pain also left lumbar area, left lower ribs. No obvious bruising noted. No clubbing or cyanosis. NEUROLOGICAL: Patient is alert and oriented x 3. Motor and sensory are also intact. Cranial nerves II through XII grossly intact. Symmetrical smile. Normal speech, normal gait. PSYCH: Normal mood, normal affect. SKIN: Warm, Dry, normal turgor, no rashes or lesions noted. Limitations: no limitations Course Vital Signs 05/30/20 05/30/20 13:21 16:00 Temperature 98.0 F 98.0 F Pulse Rate 98 92 Respiratory 18 18 Rate Blood Pressure 146/80 139/78 O2 Sat by Pulse 99 99 Oximetry Medical Decision Making - Medical Decision Making Patient is a 34-year-old female here after slipping on her deck landing on the stairs. She having some left sided lower rib pain, left hip pain. She did not hit her head, no LOC. X-rays of the chest, left ribs and left hip reveal no acute fractures dislocations. Patient is able to ambulate. She did receive pain medicine the ER and I will send her home with a tramadol starter pack. She is follow-up with PCP for continued pain if symptoms do not improve after one week. Strict return parameters were discussed with the patient and she verbalized understanding. She is stable for discharge and she is in agreement this plan of care. Disposition Clinical Impression: Fall, Contusion of rib on left side, Contusion of left hip Disposition: HOME SELF-CARE Condition: Stable Instructions (If sedation given, give patient instructions): Rib Contusion (ED) Additional Instructions: Please return to the Emergency Department if symptoms worsen or any other concerns. Use heat or ice to the area, take Motrin for discomfort. Follow-up with PCP. Is patient prescribed a controlled substance at d/c from ED?: No Referrals: Rashi Hermosillo DO [Primary Care Provider] - 1-2 days
--- NOTE | 2020-05-30 15:37 | XR ---
Left RIBS with PA chest x-ray history: Trauma and pain Frontal view of the chest and 4 views the left ribs, correlation prior chest x-ray 04/15/2020 There is no evident pneumothorax or pleural effusion. No evident displaced rib fracture. Heart size i s normal. impression: No displaced rib fracture. Bone scan could be performed for increased sensitivity as bradford cated.
--- NOTE | 2020-05-30 15:42 | XR ---
Left hip HISTORY: Trauma and pain 2 views of the left hip Bone mineralization, joint spaces and alignment are maintained IMPRESSION: No fracture or dislocation.
[2020-05-30] MEDS ORDERED: HYDROcodone/APAP 5-325MG 1 EACH TAB PO STA (15:51)
[2020-05-30] MEDS ORDERED: traMADol 50 MG STARTER PACK 3 TAB BTL PO STA (15:51)
[2020-05-30 16:02] VITALS: BP 139/78; PULSE 92
== END 2020-05-30 16:00 | disposition home or self-care (01) ==
LOC: EC 13:16
DX: S20.212A Contusion of left front wall of thorax, initial encounter (principal); S70.02XA Contusion of left hip, initial encounter; J45.909 Unspecified asthma, uncomplicated; F41.9 Anxiety disorder, unspecified; F32.9 Major depressive disorder, single episode, unspecified; F17.200 Nicotine dependence, unspecified, uncomplicated; Z79.899 Other long term (current) drug therapy; Z88.2 Allergy status to sulfonamides; Z88.8 Allergy status to other drugs, medicaments and biological substances; Z86.14 Personal history of Methicillin resistant Staphylococcus aureus infection; W08.XXXA Fall from other furniture, initial encounter; Y92.89 Other specified places as the place of occurrence of the external cause
CPT/HCPCS: 71101; 73502; 96372; 99283; J2270

== ENCOUNTER → 2020-12-18 | Outpatient (CLI) | payer OTHER ==
--- NOTE | 2020-12-18 12:09 | US ---
EXAMINATION TYPE: US pelvic complete DATE OF EXAM: 12/18/2020 COMPARISON: US 09/19/19, CT 02/03/20 CLINICAL HISTORY: R10.2 Pelvic pain. Uterus surgically removed TECHNIQUE: Transvaginal (TV) and Transabdominal (TA) . Transabdominal sonographic images of the pel vis were acquired. Transvaginal sonographic images were medically necessary to better assess the fol lowing anatomy: Ovaries Date of LMP: EXAM MEASUREMENTS: Uterus: Surgically absent cm Endometrial Stripe: Surgically absent cm Right Ovary: 4.0 x 2.5 x 2.5 cm Left Ovary: Not seen cm 1. Uterus: Surgically absent 2. Endometrium: Surgically absent 3. Right Ovary: With cyst = 2.5 x 2.5 x 2.3 cm. Cyst contains internal echos and debris, not seen on prior CT, possibly increased in size compared to prior exam dated 2018. 4. Left Ovary: Not seen due to large amounts of active bowel. 5. Bilateral Adnexa: Obscured by overlying bowel gas 6. Posterior cul-de-sac: wnl Urinary bladder is not distended. IMPRESSION: Postop changes. Exam is limited. Abnormal right ovarian cyst with internal echoes, size d escribed above, differential includes hemorrhagic cyst
== END | disposition home or self-care (01) ==
LOC: RADUSWWP 07:49
PROVIDERS: ATTEND Obstetrics & Gynecology
DX: N83.201 Unspecified ovarian cyst, right side (principal)
CPT/HCPCS: 76830; 76856

== ENCOUNTER 2021-02-20 12:24 | Emergency (ER) | payer OTHER ==
[2021-02-20 12:28] VITALS: TEMP 97.7
[2021-02-20] MEDS ORDERED: IPRATROPIUM-ALBUTEROL 3 ML NEB INHALATION STA ×2 (12:46→15:19)
[2021-02-20] MEDS ORDERED: methylPREDNISolone SOD SUCCI 125 MG/2 ML VIAL IM STA (12:47)
[2021-02-20] MEDS ORDERED: HYDROcodone/APAP 5-325MG 1 EACH TAB PO STA (13:09)
--- NOTE | 2021-02-20 15:05 | XR ---
EXAMINATION TYPE: XR chest 2V DATE OF EXAM: 02/20/2021 COMPARISON: Chest x-ray May 30, 2020 HISTORY: History of asthma with cough and congestion. TECHNIQUE: Frontal and lateral views of the chest are obtained. FINDINGS: There is no new suspicious focal air space opacity, pleural effusion, or pneumothorax seen . The cardiac silhouette size remains within normal limits. Overlying EKG leads are in current stud y. The osseous structures are intact. IMPRESSION: No acute process.
[2021-02-20] MEDS ORDERED: LORazepam 1 MG TAB PO STA (16:08)
--- NOTE | 2021-02-20 16:13 | ED ---
General Adult HPI - General Chief complaint: Shortness of Breath Stated complaint: sob Time Seen by Provider: 02/20/21 12:31 Source: patient, RN notes reviewed Mode of arrival: ambulatory Limitations: no limitations - History of Present Illness Initial comments: 35-year-old female with a past medical history of asthma, fibromyalgia, GERD, Sjogren's, anxiety, depression presents to the emergency room for a chief complaint of shortness of breath. Patient reports she started to have a cough and shortness of breath yesterday. States she feels like this is an asthma exacerbation. Patient states she did use her inhaler and took a breathing treatment that was her child's but it didn't seem to help. Patient is that she has been having some back pain with this as well. Patient reports she is also struggling with anxiety and thinks this has been contributing. Patient has no other complaints at this time including chest pain, abdominal pain, nausea or vomiting, headache, or visual changes. - Related Data Home Medications Medication Instructions Recorded Confirmed Prochlorperazine [Compazine] 10 mg PO TID PRN 09/10/18 02/20/21 Sertraline [Zoloft] 200 mg PO DAILY 03/07/20 02/20/21 Albuterol Sulfate [Proair Hfa] 2 puff INHALATION RT-Q6H PRN 02/20/21 02/20/21 QUEtiapine [SEROquel] 25 mg PO HS 02/20/21 02/20/21 busPIRone HCL [Buspar] 30 mg PO BID 02/20/21 02/20/21 Previous Rx's Medication Instructions Recorded Ipratropium-Albuterol Nebulize 3 ml INHALATION QID PRN #20 neb 02/20/21 [Duoneb 0.5 mg-3 mg/3 ml Soln] Allergies Allergy/AdvReac Type Severity Reaction Status Date / Time Sulfa (Sulfonamide Allergy Rash/Hives Verified 02/20/21 13:08 Antibiotics) metoclopramide [From Reglan] AdvReac agitation, Verified 02/20/21 13:08 restlessness Review of Systems ROS Statement: Those systems with pertinent positive or pertinent negative responses have been documented in the HPI. ROS Other: All systems not noted in ROS Statement are negative. Past Medical History Past Medical History: Asthma, Fibromyalgia, GERD/Reflux, Osteoarthritis (OA), Skin Disorder, Syncope Additional Past Medical History / Comment(s): Sjogren's syndrome. Past hx. ulcer. Chronic nausea. HX Kidney stones; SYNCOPE. ECZEMA. HAD HIATAL HERNIA REPAIR FEW WEEKS AGO, HAVING DYSPHAGIA SX. History of Any Multi-Drug Resistant Organisms: MRSA Date of last positivie culture/infection: 2009 MDRO Source:: left forearm Past Surgical History: Section, Cholecystectomy, Hysterectomy, Tubal Ligation Additional Past Surgical History / Comment(s): C/Sx3, EGD, colonoscopy. HIATAL HERNIA REPAIR. Past Anesthesia/Blood Transfusion Reactions: No Reported Reaction Additional Past Anesthesia/Blood Transfusion Reaction / Comment(s): STATES HAS VERY DIFFICULT TIME WITH PAIN CONTROL POST OP R/T AUTOIMMUNE DX Past Psychological History: Anxiety, Depression Smoking Status: Current every day smoker Past Alcohol Use History: Daily Past Drug Use History: None Reported - Past Family History Sister(s) Family Medical History: Asthma General Exam Limitations: no limitations General appearance: alert, in no apparent distress Head exam: Present: atraumatic, normocephalic, normal inspection Eye exam: Present: normal appearance, PERRL, EOMI. Absent: scleral icterus, conjunctival injection, periorbital swelling ENT exam: Present: normal exam Neck exam: Present: normal inspection, full ROM. Absent: tenderness, meningismus, lymphadenopathy Respiratory exam: Present: wheezes. Absent: respiratory distress, rales, rhonchi, stridor Cardiovascular Exam: Present: regular rate, normal rhythm, normal heart sounds. Absent: systolic murmur, diastolic murmur, rubs, gallop, clicks GI/Abdominal exam: Present: soft, normal bowel sounds. Absent: distended, tenderness, guarding, rebound, rigid Neurological exam: Present: alert Course Vital Signs 02/20/21 02/20/21 02/20/21 12:25 13:14 13:29 Temperature 97.7 F Pulse Rate 115 H 101 H 110 H Respiratory 22 Rate Blood Pressure 134/91 O2 Sat by Pulse 97 Oximetry 02/20/21 15:20 Temperature Pulse Rate 102 H Respiratory 22 Rate Blood Pressure 127/90 O2 Sat by Pulse 97 Oximetry Medical Decision Making - Medical Decision Making Patient presents very wheezy with shortness of breath. Initially tachycardic likely secondary to recent albuterol treatment and anxiety. Chest x-ray was performed which showed no acute process. Patient was given 3 DuoNeb treatments and did have significant improvement in symptoms. Wheezing has improved significantly as well on physical exam. She was also given solu Medrol. The albuterol did cause patient to feel more anxious and was given an Ativan. Patient is stable for discharge home. We will start her on outpatient steroids. She does have an albuterol inhaler at home, we will prescribe her DuoNeb for her nebulizer Disposition Clinical Impression: Asthma exacerbation Disposition: HOME SELF-CARE Condition: Good Instructions (If sedation given, give patient instructions): Asthma (ED) Prescriptions: Ipratropium-Albuterol Nebulize [Duoneb 0.5 mg-3 mg/3 ml Soln] 3 ml INHALATION QID PRN #20 neb PRN Reason: Shortness Of Breath Is patient prescribed a controlled substance at d/c from ED?: No Referrals: Rashi Hermosillo DO [Primary Care Provider] - 1-2 days Time of Disposition: 16:11
[2021-02-20 16:40] VITALS: BP 132/89; PULSE 102; RESP 20
== END 2021-02-20 16:40 | disposition home or self-care (01) ==
LOC: EC 12:24
DX: J45.901 Unspecified asthma with (acute) exacerbation (principal); M54.9 Dorsalgia, unspecified; K21.9 Gastro-esophageal reflux disease without esophagitis; M19.90 Unspecified osteoarthritis, unspecified site; M79.7 Fibromyalgia; M35.00 Sjogren syndrome, unspecified; F41.9 Anxiety disorder, unspecified; F32.9 Major depressive disorder, single episode, unspecified; F17.200 Nicotine dependence, unspecified, uncomplicated; Z79.51 Long term (current) use of inhaled steroids; Z79.899 Other long term (current) drug therapy; Z88.2 Allergy status to sulfonamides; Z88.8 Allergy status to other drugs, medicaments and biological substances
CPT/HCPCS: 94640 ×2; 93005; 71046; 99285; 96372; J2930

== ENCOUNTER → 2021-07-17 | Outpatient (CLI) | payer OTHER ==
--- NOTE | 2021-07-18 08:13 | CT ---
EXAMINATION TYPE: CT abdomen pelvis wo con DATE OF EXAM: 07/17/2021 COMPARISON: 02/03/2020 HISTORY: Abdominal pain, constipation CT DLP: 394.10 mGycm Examination of the solid and hollow viscera is limited given the lack of contrast. FINDINGS: LUNG BASES: No evidence for nodule. No evidence for infiltrate. LIVER/GB: The gallbladder is surgically absent. No space-occupying hepatic lesion. PANCREAS: No pancreatic mass identified. No inflammatory process seen. SPLEEN: No evidence for splenomegaly. No intrasplenic lesions seen. ADRENALS: No adrenal nodules identified. No evidence for thickening. KIDNEYS: No evidence for renal mass. Stable nonobstructing calculus upper pole right kidney measures 3 mm. No hydronephrosis. BOWEL: Appendix has a normal appearance. No evidence of bowel obstruction. No inflammatory process. Lymph nodes: No evidence for adenopathy greater than 1 cm. Abdominal aorta: Atheromatous changes seen. No evidence for aneurysm. Genital organs: No significant abnormality. Other: No significant abnormality. IMPRESSION: NONOBSTRUCTING RIGHT-SIDED NEPHROLITHIASIS.
== END | disposition home or self-care (01) ==
LOC: RADCTMAIN 16:11
PROVIDERS: ATTEND Family Medicine
DX: N20.0 Calculus of kidney (principal)
CPT/HCPCS: 74176

== ENCOUNTER 2021-08-24 13:46 | Emergency (ER) | payer OTHER ==
[2021-08-24 14:06] VITALS: BP 172/100; PULSE 89; RESP 18; TEMP 98.8
[2021-08-24] MEDS ORDERED: ACET/COD 300 MG/30 MG STARTER PACK 6 TAB BTL PO STA (15:10)
[2021-08-24] MEDS ORDERED: ONDANSETRON ODT 4 MG TAB PO STA (15:10)
--- NOTE | 2021-08-24 15:40 | ED ---
General Adult HPI - General Chief complaint: Head Injury Stated complaint: Previous head injury,Still Vomiting Time Seen by Provider: 08/24/21 14:41 Source: patient Mode of arrival: ambulatory Limitations: no limitations - History of Present Illness Initial comments: 36-year-old female with a past medical history of asthma, fibromyalgia, GERD presents to the emergency room for headache. Patient states a week ago she slipped and fell and hit her head outside on the pavement. She states it knocked her out for a couple minutes. States that since that time she has been having headaches as well as nausea vomiting. Patient states her wanted her to be evaluated. Is concerned she could have a concussion.Patient has no other complaints at this time including shortness of breath, chest pain, abdominal pain, or visual changes. - Related Data Home Medications Medication Instructions Recorded Confirmed Prochlorperazine [Compazine] 10 mg PO TID PRN 09/10/18 02/20/21 Sertraline [Zoloft] 200 mg PO DAILY 03/07/20 02/20/21 Albuterol Sulfate [Proair Hfa] 2 puff INHALATION RT-Q6H PRN 02/20/21 02/20/21 QUEtiapine [SEROquel] 25 mg PO HS 02/20/21 02/20/21 busPIRone HCL [Buspar] 30 mg PO BID 02/20/21 02/20/21 Previous Rx's Medication Instructions Recorded Ipratropium-Albuterol Nebulize 3 ml INHALATION QID PRN #20 neb 02/20/21 [Duoneb 0.5 mg-3 mg/3 ml Soln] Ondansetron [Zofran ODT] 4 mg PO Q8HR PRN #15 tab 08/24/21 Allergies Allergy/AdvReac Type Severity Reaction Status Date / Time Sulfa (Sulfonamide Allergy Rash/Hives Verified 08/24/21 14:06 Antibiotics) metoclopramide [From Reglan] AdvReac agitation, Verified 08/24/21 14:06 restlessness Review of Systems ROS Statement: Those systems with pertinent positive or pertinent negative responses have been documented in the HPI. ROS Other: All systems not noted in ROS Statement are negative. Past Medical History Past Medical History: Asthma, Fibromyalgia, GERD/Reflux, Osteoarthritis (OA), Skin Disorder, Syncope Additional Past Medical History / Comment(s): Sjogren's syndrome. Past hx. ulcer. Chronic nausea. HX Kidney stones; SYNCOPE. ECZEMA. HAD HIATAL HERNIA REPAIR FEW WEEKS AGO, HAVING DYSPHAGIA SX. History of Any Multi-Drug Resistant Organisms: MRSA Date of last positivie culture/infection: 2009 MDRO Source:: left forearm Past Surgical History: Section, Cholecystectomy, Hysterectomy, Tubal Ligation Additional Past Surgical History / Comment(s): C/Sx3, EGD, colonoscopy. HIATAL HERNIA REPAIR. Past Anesthesia/Blood Transfusion Reactions: No Reported Reaction Additional Past Anesthesia/Blood Transfusion Reaction / Comment(s): STATES HAS VERY DIFFICULT TIME WITH PAIN CONTROL POST OP R/T AUTOIMMUNE DX Past Psychological History: Anxiety, Depression Smoking Status: Current every day smoker Past Alcohol Use History: Daily Past Drug Use History: None Reported - Past Family History Sister(s) Family Medical History: Asthma General Exam Limitations: no limitations General appearance: alert, in no apparent distress Head exam: Present: atraumatic Eye exam: Present: normal appearance, PERRL, EOMI. Absent: scleral icterus, conjunctival injection ENT exam: Present: normal exam, mucous membranes moist Neck exam: Present: normal inspection, full ROM. Absent: tenderness Respiratory exam: Present: normal lung sounds bilaterally. Absent: respiratory distress, wheezes Cardiovascular Exam: Present: regular rate, normal rhythm, normal heart sounds Neurological exam: Present: alert, oriented X3, normal gait, other (GCS 15) Expanded Patient oriented to: Present: person, place, time Speech: Present: fluid speech Cranial nerves: EOM's Intact: Normal, Nystagmus: Normal, Facial Sensation: Normal Cerebellar function: Finger to Nose: Normal Upper motor neuron: Pronator Drift: Normal Sensory exam: Upper Extremity Light Touch: Normal, Upper Extremity Pin Prick: Normal, Lower Extremity Light Touch: Normal, Lower Extremity Pin Prick: Normal Motor strength exam: RUE: 5, LUE: 5, RLE: 5, LLE: 5 Eye Response: (4) open spontaneously Motor Response: (6) obeys commands Verbal Response: (5) oriented Ethan Total: 15 Course Vital Signs 08/24/21 14:03 Temperature 98.8 F Pulse Rate 89 Respiratory 18 Rate Blood Pressure 172/100 O2 Sat by Pulse 97 Oximetry Medical Decision Making - Medical Decision Making CT head shows no acute intracranial abnormality. Minimal maxillary sinusitis. CT cervical spine shows no acute fracture. Suspect patient has a concussion. At this time we will discharge her home with Zofran. She will follow up with her doctor, may need referral to concussion clinic. She will return here for any worsening symptoms. Disposition Clinical Impression: Post concussive syndrome Disposition: HOME SELF-CARE Condition: Good Instructions (If sedation given, give patient instructions): Concussion (ED) Additional Instructions: Please take Zofran as needed for nausea. Drink plenty of fluids and rest as much as possible. Follow-up with your doctor. Return to the emergency room for any worsening symptoms Prescriptions: Ondansetron [Zofran ODT] 4 mg PO Q8HR PRN #15 tab PRN Reason: Nausea Is patient prescribed a controlled substance at d/c from ED?: No Referrals: Rashi Hermosillo DO [Primary Care Provider] - 1-2 days Time of Disposition: 16:09
--- NOTE | 2021-08-24 15:42 | CT ---
EXAMINATION TYPE: CT brain sonuine wo con DATE OF EXAM: 08/24/2021 COMPARISON: None HISTORY: headache since fell [address] DLP: 1249 mGycm Automated exposure control for dose reduction was used. Ventricles have normal size. There is no mass effect nor midline shift. There is no evidence of intra cranial hemorrhage. Skull base is intact. There is normal aeration of the mastoid sinuses. There is s mall fluid levels in the maxillary sinuses. Cervical vertebra have fairly normal alignment. Disc spaces are normal. Posterior elements are intact . There is no compression fracture. Prevertebral soft tissues appear normal. IMPRESSION: Negative CT scan of the cervical spine. No fracture.
== END 2021-08-24 16:45 | disposition home or self-care (01) ==
LOC: EC 13:46
DX: G44.301 Post-traumatic headache, unspecified, intractable (principal); F07.81 Postconcussional syndrome; J45.909 Unspecified asthma, uncomplicated; K21.9 Gastro-esophageal reflux disease without esophagitis; M19.90 Unspecified osteoarthritis, unspecified site; F41.9 Anxiety disorder, unspecified; F32.A Depression, unspecified; F17.200 Nicotine dependence, unspecified, uncomplicated; Z88.1 Allergy status to other antibiotic agents; Z88.2 Allergy status to sulfonamides; Z87.442 Personal history of urinary calculi; Z90.49 Acquired absence of other specified parts of digestive tract; Z90.710 Acquired absence of both cervix and uterus; Z98.51 Tubal ligation status
CPT/HCPCS: 70450; 72125; 99284

== ENCOUNTER 2021-11-07 18:40 | Emergency (ER) | payer OTHER ==
[2021-11-07 18:51] VITALS: TEMP 97.6
[2021-11-07 19:14] LABS: HCT 44.8 % (34.0-46.0); HGB 15.4 gm/dL (11.4-16.0); MCH 32.8 pg (25.0-35.0); MCHC 34.4 g/dL (31.0-37.0); MCV 95.4 fL (80.0-100.0); Mean Platelet Volume 8.4; Platelet Count 232 k/uL (150-450); RDW 12.1 % (11.5-15.5); WBC 12.3 k/uL (3.8-10.6)
[2021-11-07 19:22] LABS: Albumin 5.2 g/dL (3.5-5.0); Calcium 10.6 mg/dL (8.4-10.2); Potassium 4.4 mmol/L (3.5-5.1); Total Bilirubin 0.5 mg/dL (0.2-1.3); Total Protein 8.6 g/dL (6.3-8.2)
[2021-11-07 21:06] VITALS: RESP 18
[2021-11-07] MEDS ORDERED: MORPHINE SULFATE 4 MG/ML SYRINGE IM STA (21:58)
--- NOTE | 2021-11-07 22:15 | ED ---
General Adult HPI - General Chief complaint: Eye Problems Stated complaint: HBP,Headache,vision issues Time Seen by Provider: 11/07/21 21:31 Source: patient Mode of arrival: ambulatory Limitations: no limitations - History of Present Illness Initial comments: 36 year-old female patient presents to the emergency department for evaluation of right vision loss and headache. States this started a few hours ago at home. States she lost vision in her right eye over the medial half. States it was black. States seconds later she developed a headache. States that the headache has been gradually worsening. States she has been having an increase in headaches over the last week. States her blood pressure at home was very high. States she does have a history of high blood pressure but has not taken anything for it for the last two years. Reports some tingling to the right hand. Denies any dizziness, chest pain, or shortness of breath. Denies nausea or vomiting. Denies any recent illness or head injury. Patient denies any recent rash, fever, chills, cough, abdominal pain, diarrhea, constipation, back pain, hematuria, dysuria, urinary urgency, urinary frequency, or any other complaints. - Related Data Home Medications Medication Instructions Recorded Confirmed Prochlorperazine [Compazine] 10 mg PO TID PRN 09/10/18 02/20/21 Sertraline [Zoloft] 200 mg PO DAILY 03/07/20 02/20/21 Albuterol Sulfate [Proair Hfa] 2 puff INHALATION RT-Q6H PRN 02/20/21 02/20/21 QUEtiapine [SEROquel] 25 mg PO HS 02/20/21 02/20/21 busPIRone HCL [Buspar] 30 mg PO BID 02/20/21 02/20/21 Previous Rx's Medication Instructions Recorded Ipratropium-Albuterol Nebulize 3 ml INHALATION QID PRN #20 neb 02/20/21 [Duoneb 0.5 mg-3 mg/3 ml Soln] Ondansetron [Zofran ODT] 4 mg PO Q8HR PRN #15 tab 08/24/21 Allergies Allergy/AdvReac Type Severity Reaction Status Date / Time Sulfa (Sulfonamide Allergy Rash/Hives Verified 11/07/21 18:51 Antibiotics) metoclopramide [From Reglan] AdvReac agitation, Verified 11/07/21 18:51 restlessness Review of Systems ROS Statement: Those systems with pertinent positive or pertinent negative responses have been documented in the HPI. ROS Other: All systems not noted in ROS Statement are negative. Past Medical History Past Medical History: Asthma, Fibromyalgia, GERD/Reflux, Osteoarthritis (OA), Skin Disorder, Syncope Additional Past Medical History / Comment(s): Sjogren's syndrome. Past hx. ulcer. Chronic nausea. HX Kidney stones; SYNCOPE. ECZEMA. HAD HIATAL HERNIA REPAIR FEW WEEKS AGO, HAVING DYSPHAGIA SX. History of Any Multi-Drug Resistant Organisms: MRSA Date of last positivie culture/infection: 2009 MDRO Source:: left forearm Past Surgical History: Section, Cholecystectomy, Hysterectomy, Tubal Ligation Additional Past Surgical History / Comment(s): C/Sx3, EGD, colonoscopy. HIATAL HERNIA REPAIR. Past Anesthesia/Blood Transfusion Reactions: No Reported Reaction Additional Past Anesthesia/Blood Transfusion Reaction / Comment(s): STATES HAS VERY DIFFICULT TIME WITH PAIN CONTROL POST OP R/T AUTOIMMUNE DX Past Psychological History: Anxiety, Depression Smoking Status: Current every day smoker Past Alcohol Use History: Daily, Occasional Past Drug Use History: None Reported - Past Family History Sister(s) Family Medical History: Asthma General Exam Limitations: no limitations General appearance: alert, in no apparent distress, other (This is a well developed, well nourished adult female in no acute distress.) Eye exam: Present: normal appearance, PERRL, EOMI. Absent: scleral icterus, conjunctival injection, nystagmus, periorbital swelling ENT exam: Present: normal exam, normal oropharynx, mucous membranes moist Respiratory exam: Present: normal lung sounds bilaterally. Absent: respiratory distress, wheezes, rales, rhonchi, stridor Cardiovascular Exam: Present: regular rate, normal rhythm, normal heart sounds. Absent: systolic murmur, diastolic murmur, rubs, gallop, clicks GI/Abdominal exam: Present: soft, normal bowel sounds. Absent: distended, tenderness, guarding, rebound, rigid Neurological exam: Present: alert, oriented X3, CN II-XII intact Expanded Speech: Present: fluid speech Cranial nerves: EOM's Intact: Normal, Tongue Deviation: Normal, Nystagmus: Normal Cerebellar function: Finger to Nose: Normal Upper motor neuron: Pronator Drift: Normal Motor strength exam: RUE: 5, LUE: 5, RLE: 5, LLE: 5 Psychiatric exam: Present: normal affect, normal mood Skin exam: Present: warm, dry, intact, normal color. Absent: rash Course Vital Signs 11/07/21 11/07/21 11/07/21 18:48 21:05 23:16 Temperature 97.6 F Pulse Rate 84 84 69 Respiratory 16 18 18 Rate Blood Pressure 167/102 151/102 133/86 O2 Sat by Pulse 99 100 97 Oximetry EKG Findings - EKG Comments: EKG Findings:: EKG obtained at 1856 shows sinus rhythm with ventricular rate is 78, RI interval 144, QRS duration 102, QT 354, QTC 387. No evidence of ST elevation or depression. Medical Decision Making - Medical Decision Making 36-year-old female patient presents to the emergency department for evaluation of visual disturbance, headache, elevated blood pressures. Physical examination is unremarkable. She is neurologically intact with no focal deficits. Labs reviewed and are unremarkable. CT brain is negative. She did receive medication here vital signs did improve. Symptoms did improve. She'll be discharged follow up with her primary care physician for recheck as soon as possible. Return parameters were discussed in detail. She verbalizes understanding and agrees with this plan. My attending is Dr. Mendez. - Lab Data Result diagrams: 11/07/21 19:06 11/07/21 19:06 Lab Results 11/07/21 11/07/21 11/07/21 Range/Units 19:06 19:06 23:12 WBC 12.3 H (3.8-10.6) k/uL RBC 4.70 (3.80-5.40) m/uL Hgb 15.4 (11.4-16.0) gm/dL Hct 44.8 (34.0-46.0) % MCV 95.4 (80.0-100.0) fL MCH 32.8 (25.0-35.0) pg MCHC 34.4 (31.0-37.0) g/dL RDW 12.1 (11.5-15.5) % Plt Count 232 (150-450) k/uL MPV 8.4 Sodium 136 L (137-145) mmol/L Potassium 4.4 (3.5-5.1) mmol/L Chloride 105 (98-107) mmol/L Carbon Dioxide 24 (22-30) mmol/L Anion Gap 7 mmol/L BUN 17 (7-17) mg/dL Creatinine 0.99 (0.52-1.04) mg/dL Est GFR (CKD-EPI)AfAm 86 (>60 ml/min/1.73 sqM) Est GFR (CKD-EPI)NonAf 74 (>60 ml/min/1.73 sqM) Glucose 85 (74-99) mg/dL Calcium 10.6 H (8.4-10.2) mg/dL Total Bilirubin 0.5 (0.2-1.3) mg/dL AST 26 (14-36) U/L ALT 10 (4-34) U/L Alkaline Phosphatase 61 (38-126) U/L Total Protein 8.6 H (6.3-8.2) g/dL Albumin 5.2 H (3.5-5.0) g/dL Urine Color Colorless Urine Appearance Clear (Clear) Urine pH 5.5 (5.0-8.0) Ur Specific [place] 1.006 (1.001-1.035) Urine Protein Negative (Negative) Urine Glucose (UA) Negative (Negative) Urine Ketones Negative (Negative) Urine Blood Negative (Negative) Urine Nitrite Negative (Negative) Urine Bilirubin Negative (Negative) Urine Urobilinogen <2.0 (<2.0) mg/dL Ur Leukocyte Esterase Negative (Negative) - Radiology Data Radiology results: report reviewed, image reviewed CT brain without contrast was obtained. Report was reviewed in its entirety. Impression by Dr. Read shows normal unenhanced head CT scan. No change. Disposition Clinical Impression: Migraine, Transient vision disturbance of right eye Disposition: HOME SELF-CARE Condition: Good Instructions (If sedation given, give patient instructions): Migraine Headache (ED), Blurred Vision (ED) Additional Instructions: Keep list of blood pressures for your primary care physician follow-up as soon as possible for recheck. Return to the emergency department immediately for any new, worsening, or concerning symptoms. Is patient prescribed a controlled substance at d/c from ED?: No Referrals: Rashi Hermosillo DO [Primary Care Provider] - 1-2 days Time of Disposition: 00:35
--- NOTE | 2021-11-07 22:56 | CT ---
EXAMINATION TYPE: CT brain wo con DATE OF EXAM: 11/07/2021 COMPARISON: 08/24/2021 HISTORY: headaches CT DLP: 1060.4 mGycm Automated exposure control for dose reduction was used. Images of the brain obtained without contrast. Ventricles and sulci appear normal. There is no mass effect or midline shift. There is no sign of int racranial hemorrhage. The calvarium is intact skull base is intact. There is normal aeration of the m astoid sinuses. IMPRESSION: Normal unenhanced head CT scan. No change.
[2021-11-07 23:17] VITALS: BP 133/86; PULSE 69
[2021-11-07 23:40] LABS: Appearance,Urine Clear (Clear); Bilirubin,Urine Negative (Negative); Blood,Urine Negative (Negative); Color,Urine Colorless; Glucose,Urine (UA) Negative (Negative); Ketones,Urine Negative (Negative); Leukocyte Esterase,Urine Negative (Negative); Nitrite,Urine Negative (Negative); PH, Urine 5.5 (5.0-8.0); Protein,Urine Negative (Negative); Specific Gravity,Urine 1.006 (1.001-1.035); Urobilinogen,Urine <2.0 mg/dL (<2.0)
[2021-11-08] MEDS ORDERED: ASPIRIN-ACET-CAFF 250-250-65MG 1 EACH TAB PO STA (00:33)
== END 2021-11-08 00:48 | disposition home or self-care (01) ==
LOC: EC 18:40
DX: H53.121 Transient visual loss, right eye (principal); G43.909 Migraine, unspecified, not intractable, without status migrainosus; J45.909 Unspecified asthma, uncomplicated; M79.7 Fibromyalgia; K21.9 Gastro-esophageal reflux disease without esophagitis; M19.90 Unspecified osteoarthritis, unspecified site; F41.9 Anxiety disorder, unspecified; F32.A Depression, unspecified; F17.200 Nicotine dependence, unspecified, uncomplicated; Z88.2 Allergy status to sulfonamides; Z88.1 Allergy status to other antibiotic agents; Z87.442 Personal history of urinary calculi; Z90.49 Acquired absence of other specified parts of digestive tract; Z90.710 Acquired absence of both cervix and uterus; Z98.51 Tubal ligation status
CPT/HCPCS: 99284; 96372; 36415; 93005; 80053; 85027; 81003; 70450; J2270

== ENCOUNTER 2022-05-14 18:58 | Emergency (ER) | payer OTHER ==
[2022-05-14 19:14] VITALS: TEMP 97.7
[2022-05-14] MEDS ORDERED: SODIUM CHLORIDE 0.9% 1,000 ML IV ONE (19:37)
[2022-05-14] MEDS ORDERED: ONDANSETRON 4 MG/2 ML VIAL IVP STA (19:38)
[2022-05-14] MEDS ORDERED: MORPHINE SULFATE 4 MG/ML SYRINGE IV STA (19:38)
--- NOTE | 2022-05-14 19:44 | ED ---
Chest Pain HPI - General Chief Complaint: Chest Pain Stated Complaint: chest pain Time Seen by Provider: 05/14/22 19:16 Source: patient, RN notes reviewed Mode of arrival: ambulatory Limitations: no limitations - History of Present Illness Initial Comments: This is a patient with a history of asthma, fibromyalgia, migraine headaches, and Sjogren's disease. Patient presents to the emergency department complaining of increased fatigue over the past 3 weeks. Patient states that she has had increased headaches. Patient also complaining of fatigue and nonspecific and intermittent chest pains. Patient was seen here previously for similar symptoms. Patient had a full cup to include a computed tomography scan of the head. Patient was found to have thrombocytopenia with a platelet count of 91,000. Patient followed up with her primary care physician today and was referred to a chief meteorologist. However due to her complaints she was sent back here to the ER for another evaluation. Patient denying any spontaneous bleeding. Patient does habitus couple scattered bruises. Headache is moderate to severe in intensity and consistent with the patient's previous migraine headaches. She is getting a daily headache. States is essentially been constant. No neck stiffness. No vision or hearing disturbance. Some photosensitivity. No numbness or tingling. No vertigo. Slurred speech. No focal paresthesias or weakness. Patient states she feels generally weak and fatigued. Chest pains are nonspecific, fleeting, sharp in nature. Patient states her doctor ordered a Holter monitor as well. Patient previously has had a hysterectomy. Patient has long-standing history of migraine headaches and does take Maxalt and previously has used Toradol as well. Patient does have a neurologist. POSITIVE fatigue, no fever or chills, no changes in vision or hearing, no sore throat or difficulty with speech, no neck pain, no shortness of breath, no abdominal pain, no nausea or vomiting, no changes in urination or bowel movements, no numbness or tingling, no extremity pain, no skin rashes or lesions. Past medical, surgical, social, and family history reviewed. - Related Data Home Medications Medication Instructions Recorded Confirmed Prochlorperazine [Compazine] 10 mg PO TID PRN 09/10/18 05/14/22 Sertraline [Zoloft] 200 mg PO DAILY 03/07/20 05/14/22 Albuterol Sulfate [Proair Hfa] 2 puff INHALATION RT-Q6H PRN 02/20/21 05/14/22 busPIRone HCL [Buspar] 30 mg PO BID 02/20/21 05/14/22 Pregabalin [Lyrica] 150 mg PO TID 05/14/22 05/14/22 Propranolol HCl [Inderal] 60 mg PO BID 05/14/22 05/14/22 Rizatriptan Benzoate [Maxalt] 10 mg PO BID PRN 05/14/22 05/14/22 Allergies Allergy/AdvReac Type Severity Reaction Status Date / Time Sulfa (Sulfonamide Allergy Rash/Hives Verified 05/14/22 20:23 Antibiotics) metoclopramide [From Reglan] AdvReac agitation, Verified 05/14/22 20:23 restlessness Review of Systems ROS Statement: Those systems with pertinent positive or pertinent negative responses have been documented in the HPI. ROS Other: All systems not noted in ROS Statement are negative. EKG Findings - EKG Comments: EKG Findings:: EKG done at 1915 and read by the ED attending physician reveals sinus rhythm with a rate of 84. Incomplete right bundle-branch block with RSR p attern in V1 and V2. Indeterminate axis. Normal intervals. When compared to the previous study from October 2021 there is no change. Past Medical History Past Medical History: Asthma, Fibromyalgia, GERD/Reflux, Osteoarthritis (OA), Skin Disorder, Syncope Additional Past Medical History / Comment(s): Sjogren's syndrome. Past hx. ulcer. Chronic nausea. HX Kidney stones; SYNCOPE. ECZEMA. HAD HIATAL HERNIA REPAIR FEW WEEKS AGO, HAVING DYSPHAGIA SX. History of Any Multi-Drug Resistant Organisms: MRSA Date of last positivie culture/infection: 2009 MDRO Source:: left forearm Past Surgical History: Section, Cholecystectomy, Hysterectomy, Tubal Ligation Additional Past Surgical History / Comment(s): C/Sx3, EGD, colonoscopy. HIATAL HERNIA REPAIR. Past Anesthesia/Blood Transfusion Reactions: No Reported Reaction Additional Past Anesthesia/Blood Transfusion Reaction / Comment(s): STATES HAS VERY DIFFICULT TIME WITH PAIN CONTROL POST OP R/T AUTOIMMUNE DX Past Psychological History: Anxiety, Depression Smoking Status: Current every day smoker Past Alcohol Use History: Occasional Past Drug Use History: None Reported - Past Family History Sister(s) Family Medical History: Asthma General Exam - General Exam Comments Initial Comments: A mild distress. Cranial nerves II through XII are intact. Patient has no evid ence of respiratory distress. Does not appear to be overtly ill or toxic. Limitations: no limitations General appearance: alert Head exam: Present: atraumatic, normocephalic, normal inspection Eye exam: Present: normal appearance, PERRL, EOMI. Absent: scleral icterus, conjunctival injection, periorbital swelling Pupils: Present: normal accommodation ENT exam: Present: normal exam, normal oropharynx, mucous membranes dry, mucous membranes moist, TM's normal bilaterally, normal external ear exam Neck exam: Present: normal inspection, full ROM. Absent: tenderness, meningismus, lymphadenopathy Respiratory exam: Present: normal lung sounds bilaterally. Absent: respiratory distress, wheezes, rales, rhonchi, stridor, chest wall tenderness, accessory muscle use, decreased breath sounds, prolonged expiratory Cardiovascular Exam: Present: regular rate, normal rhythm, normal heart sounds. Absent: systolic murmur, diastolic murmur, rubs, gallop, clicks GI/Abdominal exam: Present: soft, normal bowel sounds. Absent: distended, tenderness, guarding, rebound, rigid Extremities exam: Present: normal inspection, full ROM, normal capillary refill. Absent: tenderness, pedal edema, joint swelling, calf tenderness Back exam: Present: normal inspection Neurological exam: Present: alert, oriented X3, CN II-XII intact Expanded Patient oriented to: Present: person, place, time Cranial nerves: EOM's Intact: Normal, Gag Reflex: Normal, Tongue Deviation: Normal, Nystagmus: Normal, Facial Sensation: Normal, Facial Palsy with Forehead Movement: Normal, Facial Palsy without Forehead Movement: Normal Cerebellar function: Finger to Nose: Normal, Heel to Fox: Normal Upper motor neuron: Emmanuel Neglect: Normal, Pronator Drift: Normal Sensory exam: Upper Extremity Light Touch: Normal, Lower Extremity Light Touch: Normal Motor strength exam: RUE: 5, LUE: 5, RLE: 5, LLE: 5 Eye Response: (4) open spontaneously Motor Response: (6) obeys commands Verbal Response: (5) oriented [place] Total: 15 Psychiatric exam: Present: normal affect, normal mood Skin exam: Present: warm, dry, intact, normal color, other (Review very tiny, superficial bruises that appear to be old on the upper extremities and lower extremities. No petechiae. No purpura.). Absent: rash, cyanosis, diaphoretic, erythema, urticaria, vesicles, petechiae, pallor, mottled, abrasion Course Vital Signs 05/14/22 05/14/22 19:10 20:23 Temperature 97.7 F Pulse Rate 95 Pulse Rate [ 68 Receipt And Report Clerk ] Respiratory 16 Rate Blood Pressure 123/85 O2 Sat by Pulse 98 Oximetry - Reevaluation(s) Reevaluation #1: 05/14/22 20:58 Medical record is reviewed Symptoms are improved here in the emergency department Patient is informed of results and questions answered Patient in no distress Chest Pain MDM - MDM Presenting with fatigue, increased frequency of migraine headaches, nonspecific fleeting chest pains which been going on for several months per the patient. Patient does have low platelets increased fatigue. This does have a wide array of possible diagnoses, differential is vast. Does raise suspicion of possible viral infection. We'll do a general workup. We'll include a troponin, EKG, viral testing, COVID-19 testing, HIV, mononucleosis. Patient denies any illicit drug use or alcohol use. Patient's platelet count is actually normal otherwise. This does raise a suspicion of possible postviral syndrome. Patient's other complaints are essentially chronic. Patient had no significant change an EKG. Troponin was negative. We'll have the patient proceeded back to her primary care physician. Patient is getting a referral to both her neurologist and chief meteorologist. Patient also was getting set up with cardiology. Patient no distress at discharge. Given the patient's age, clinicity of pain, and essentially a heart score of 0. I believe this is unlikely to be related to cardiac ischemia. PERC 0 Patient was told to return to the ER for any signs or symptoms worsen. Told to return immediately if any other problems arise. All questions answered. Treatment plan discussed. Patient in agreement Every effort has been made to ensure accuracy of this dictation. However, due to the limitations of electronic medical records and dictation devices, errors in charting still occur. The case was discussed in detail with ED attending physician. Presentation, findings, treatment plan discussed in detail. Patient has a few pending labs, mainly vitamin B12, folate, and HIV testing. COVID-19 testing and heterophile antibody were negative. Tank Cooper Dr. Damer Disposition Clinical Impression: Atypical chest pain, Recurrent headache, Fatigue Disposition: HOME SELF-CARE Condition: Stable Instructions (If sedation given, give patient instructions): Chest Pain (ED), Migraine Headache (ED), Fatigue (ED) Additional Instructions: Make a follow-up appointment with your regular doctor as well as your neurologist. Follow-up with your regular physician as directed. Return to the ER immediately if any symptoms worsen, new symptoms arise, or any other problems develop. Is patient prescribed a controlled substance at d/c from ED?: No Referrals: Rashi Hermosillo DO [Primary Care Provider] - 1-2 days Time of Disposition: 20:58
[2022-05-14 19:59] LABS: Basophils # (A) 0.1 k/uL (0-0.2); Basophils % (A) 1 %; Eosinophils # (A) 0.5 k/uL (0-0.7); Eosinophils % (A) 4 %; HCT 44.9 % (34.0-46.0); HGB 14.7 gm/dL (11.4-16.0); Lymphocytes # (A) 2.8 k/uL (1.0-4.8); Lymphocytes % (A) 28 %; MCH 30.8 pg (25.0-35.0); MCHC 32.7 g/dL (31.0-37.0); MCV 94.3 fL (80.0-100.0); Mean Platelet Volume 7.9; Monocytes # (A) 0.4 k/uL (0-1.0); Monocytes % (A) 4 %; Neutrophils # (A) 6.3 k/uL (1.3-7.7); Neutrophils % (A) 62 %; RBC 4.76 m/uL (3.80-5.40); WBC 10.2 k/uL (3.8-10.6)
[2022-05-14 20:09] LABS: Platelet Count 258 k/uL (150-450)
[2022-05-14 20:19] LABS: Albumin 3.9 g/dL (3.5-5.0); Calcium 9.4 mg/dL (8.4-10.2); Potassium 3.6 mmol/L (3.5-5.1); Total Bilirubin 0.4 mg/dL (0.2-1.3); Total Protein 6.4 g/dL (6.3-8.2)
--- NOTE | 2022-05-14 20:38 | XR ---
EXAMINATION TYPE: XR chest 1V DATE OF EXAM: 05/14/2022 COMPARISON: 02/20/2021 HISTORY: Chest pain TECHNIQUE: FINDINGS: Heart and mediastinum are normal. Lungs are clear. Diaphragm is normal. Bony thorax appears normal. There are chest leads. IMPRESSION: Normal chest. No change.
[2022-05-14 20:55] LABS: Appearance,Urine Clear (Clear); Bilirubin,Urine Negative (Negative); Blood,Urine Negative (Negative); Color,Urine Light Yellow; Glucose,Urine (UA) Negative (Negative); Ketones,Urine Negative (Negative); Leukocyte Esterase,Urine Negative (Negative); Nitrite,Urine Negative (Negative); PH, Urine 5.5 (5.0-8.0); Protein,Urine Negative (Negative); Specific Gravity,Urine 1.011 (1.001-1.035); Urobilinogen,Urine <2.0 mg/dL (<2.0)
[2022-05-14] MEDS ORDERED: ACET/COD 300 MG/30 MG STARTER PACK 6 TAB BTL PO STA (20:58)
[2022-05-14 21:28] VITALS: BP 116/82; PULSE 64; RESP 18
[2022-05-15 04:29] LABS: HIV 2 AB Non-Reactive (Non-Reactive); HIV AB P24 Non-Reactive (Non-Reactive); HIV P24 AG Non-Reactive (Non-Reactive)
== END 2022-05-14 21:28 | disposition home or self-care (01) ==
LOC: EC 18:58
DX: R07.89 Other chest pain (principal); G44.52 New daily persistent headache (NDPH); R53.83 Other fatigue; J45.909 Unspecified asthma, uncomplicated; K21.9 Gastro-esophageal reflux disease without esophagitis; M19.90 Unspecified osteoarthritis, unspecified site; F41.9 Anxiety disorder, unspecified; F32.A Depression, unspecified; F17.200 Nicotine dependence, unspecified, uncomplicated; Z88.2 Allergy status to sulfonamides; Z88.8 Allergy status to other drugs, medicaments and biological substances; Z79.51 Long term (current) use of inhaled steroids; Z79.899 Other long term (current) drug therapy; Z20.822 Contact with and (suspected) exposure to COVID-19
CPT/HCPCS: 36415; 80053; 82607; 82746; 84484; 85025; 86308; 81003; 87390; 87635; 71045; 99285; 96374; 96375; 96361; J2270; J2405

== ENCOUNTER → 2022-05-26 | Outpatient (CLI) | payer OTHER ==
--- NOTE | 2022-07-02 11:31 | EM ---
EVENT MONITOR The patient was monitored between the 26 of May and May. The rhythm strip revealed a sinus mechanism with normal conduction. No atrial fibrillation was noted. No significant ventricular ectopic activity was noted. Symptoms of chest pain and irregular heartbeat did not correlate with any significant arrhythmia. CLEMENTE / IVAN: [id number] /
== END | disposition home or self-care (01) ==
LOC: RADECHMAIN 07:23
PROVIDERS: ATTEND Family Medicine
DX: R55 Syncope and collapse (principal)
CPT/HCPCS: 93270

== ENCOUNTER 2022-07-20 14:10 | Emergency (ER) | payer OTHER ==
[2022-07-20 14:22] VITALS: TEMP 98.2
[2022-07-20] MEDS ORDERED: MORPHINE SULFATE 4 MG/ML SYRINGE IV STA (16:55)
[2022-07-20] MEDS ORDERED: SODIUM CHLORIDE 0.9% 1,000 ML IV STA (16:55)
[2022-07-20 17:27] LABS: Basophils # (A) 0.1 k/uL (0-0.2); Basophils % (A) 1 %; Eosinophils # (A) 0.8 k/uL (0-0.7); Eosinophils % (A) 8 %; HCT 43.1 % (34.0-46.0); Lymphocytes # (A) 2.9 k/uL (1.0-4.8); Lymphocytes % (A) 31 %; MCH 31.8 pg (25.0-35.0); MCHC 34.9 g/dL (31.0-37.0); MCV 91.2 fL (80.0-100.0); Mean Platelet Volume 8.7; Monocytes # (A) 0.4 k/uL (0-1.0); Monocytes % (A) 5 %; Neutrophils # (A) 5.1 k/uL (1.3-7.7); Neutrophils % (A) 54 %; Platelet Count 232 k/uL (150-450); RBC 4.72 m/uL (3.80-5.40); RDW 11.8 % (11.5-15.5); WBC 9.5 k/uL (3.8-10.6)
[2022-07-20 17:28] LABS: Appearance,Urine Clear (Clear); Bilirubin,Urine Negative (Negative); Blood,Urine Negative (Negative); Color,Urine Colorless; Glucose,Urine (UA) Negative (Negative); Ketones,Urine Negative (Negative); Leukocyte Esterase,Urine Negative (Negative); Nitrite,Urine Negative (Negative); Protein,Urine Negative (Negative); Specific Gravity,Urine 1.007 (1.001-1.035); Urobilinogen,Urine <2.0 mg/dL (<2.0)
[2022-07-20 17:30] VITALS: BP 141/106; PULSE 82; RESP 18
[2022-07-20 17:36] LABS: INR 0.9 (<1.2); Partial Thromboplastin Time 22.7 sec (22.0-30.0)
[2022-07-20 17:37] LABS: ALT 15 U/L (4-34); AST 29 U/L (14-36); African American GFR (CKD) >90 (>60 ml/min/1.73 sqM); Albumin 4.6 g/dL (3.5-5.0); Alkaline Phosphatase 59 U/L (38-126); Amylase 65 U/L (30-110); Anion Gap 11 mmol/L; Blood Urea Nitrogen 15 mg/dL (7-17); Calcium 9.5 mg/dL (8.4-10.2); Carbon Dioxide 19 mmol/L (22-30); Chloride 106 mmol/L (98-107); Glucose 78 mg/dL (74-99); Lipase 98 U/L (23-300); Non-African American GFR(CKD) >90 (>60 ml/min/1.73 sqM); Potassium 4.6 mmol/L (3.5-5.1); Sodium 136 mmol/L (137-145); Total Bilirubin 0.6 mg/dL (0.2-1.3); Total Protein 7.2 g/dL (6.3-8.2)
--- NOTE | 2022-07-20 18:36 | US ---
EXAMINATION TYPE: US kidneys/renal and bladder DATE OF EXAM: 07/20/2022 COMPARISON: NONE CLINICAL HISTORY: R flank pain. h/o renal stones, unsure if new ones now, o hematuria EXAM MEASUREMENTS: Right Kidney: 11.8 x 5.6 x 4.2cm Left Kidney: 11.3 x4.7 x 4.8cm Right Kidney: No hydronephrosis or masses seen Left Kidney: No hydronephrosis or masses seen Bladder: wnl Bilateral Jets seen: Yes IMPRESSION: No evidence of renal stone or obstruction. No evidence of a bladder mass.
--- NOTE | 2022-07-20 18:37 | US ---
EXAMINATION TYPE: US pelvic complete DATE OF EXAM: 07/20/2022 COMPARISON: NONE CLINICAL HISTORY: R sided pelvic pain. Rt flank pain, h/o renal stones and ovarian cysts, hysterectom y TECHNIQUE: TA Transabdominal sonographic images of the pelvis were acquired- pt had full enough jeremy dder to assess TA Date of LMP: hysterectomy EXAM MEASUREMENTS: Uterus: Surgically absent Endometrial Stripe: Surgically absent Right Ovary: 2.8 x 2.2 x 2.8 Left Ovary: overlying bowel gas obscures ovary 1. Uterus: Surgically absent 2. Endometrium: Surgically absent 3. Right Ovary: 2 cystic areas seen, largest = 2.0 x 1.7 x 1.0cm and is simple in appearance 4. Left Ovary: unable to view due to bowel gas, not seen on previous US either. Spectral, color and waveform doppler imaging shows good arterial and venous flow within the right o vary; there is no evidence for ovarian torsion on the right. 5. Bilateral Adnexa: wnl 6. Posterior cul-de-sac: wnl IMPRESSION: Right ovarian cyst. No evidence of a solid pelvic mass. No free fluid. No evidence of ova lindsey torsion. Left ovary not seen.
[2022-07-20] MEDS ORDERED: ACET/COD 300 MG/30 MG STARTER PACK 6 TAB BTL PO STA (19:03)
--- NOTE | 2022-07-20 19:05 | ED ---
Abdominal Pain HPI - General Chief Complaint: Abdominal Pain Stated Complaint: RT flank pain Time Seen by Provider: 07/20/22 16:35 Source: patient Mode of arrival: ambulatory Limitations: no limitations - History of Present Illness Initial Comments: Patient is a 36-year-old female presenting with chief complaint of abdominal pain. Patient admits to increasing right-sided pelvic pain for the last 6 days. She has been taking Motrin and Tylenol for pain relief. Patient has surgical history of hysterectomy, patient still has ovaries. No bleeding or discharge. No nausea, vomiting, chest pain, difficulty breathing, fever, chills, diarrhea, hematochezia, melena, dysuria, hematuria. Patient states the pain does radiate to the back and she does have a history of kidney stones. - Related Data Home Medications Medication Instructions Recorded Confirmed Prochlorperazine [Compazine] 10 mg PO TID PRN 09/10/18 05/14/22 Sertraline [Zoloft] 200 mg PO DAILY 03/07/20 05/14/22 Albuterol Sulfate [Proair Hfa] 2 puff INHALATION RT-Q6H PRN 02/20/21 05/14/22 busPIRone HCL [Buspar] 30 mg PO BID 02/20/21 05/14/22 Pregabalin [Lyrica] 150 mg PO TID 05/14/22 05/14/22 Propranolol HCl [Inderal] 60 mg PO BID 05/14/22 05/14/22 Rizatriptan Benzoate [Maxalt] 10 mg PO BID PRN 05/14/22 05/14/22 Allergies Allergy/AdvReac Type Severity Reaction Status Date / Time Sulfa (Sulfonamide Allergy Rash/Hives Verified 07/20/22 14:21 Antibiotics) metoclopramide [From Reglan] AdvReac agitation, Verified 07/20/22 14:21 restlessness Review of Systems ROS Statement: Those systems with pertinent positive or pertinent negative responses have been documented in the HPI. ROS Other: All systems not noted in ROS Statement are negative. Past Medical History Past Medical History: Asthma, Fibromyalgia, GERD/Reflux, Osteoarthritis (OA), Skin Disorder, Syncope Additional Past Medical History / Comment(s): Sjogren's syndrome. Past hx. ulcer. Chronic nausea. HX Kidney stones; SYNCOPE. ECZEMA. HAD HIATAL HERNIA REPAIR FEW WEEKS AGO, HAVING DYSPHAGIA SX. History of Any Multi-Drug Resistant Organisms: MRSA Date of last positivie culture/infection: 2009 MDRO Source:: left forearm Past Surgical History: Section, Cholecystectomy, Hysterectomy, Tubal Ligation Additional Past Surgical History / Comment(s): C/Sx3, EGD, colonoscopy. HIATAL HERNIA REPAIR. Past Anesthesia/Blood Transfusion Reactions: No Reported Reaction Additional Past Anesthesia/Blood Transfusion Reaction / Comment(s): STATES HAS VERY DIFFICULT TIME WITH PAIN CONTROL POST OP R/T AUTOIMMUNE DX Past Psychological History: Anxiety, Depression Smoking Status: Current every day smoker Past Alcohol Use History: Occasional Past Drug Use History: Marijuana - Past Family History Sister(s) Family Medical History: Asthma General Exam Limitations: no limitations General appearance: alert, in no apparent distress Head exam: Present: atraumatic, normocephalic, normal inspection Eye exam: Present: normal appearance, PERRL, EOMI. Absent: scleral icterus, conjunctival injection, periorbital swelling Neck exam: Present: normal inspection Respiratory exam: Present: normal lung sounds bilaterally. Absent: respiratory distress, wheezes, rales, rhonchi, stridor Cardiovascular Exam: Present: regular rate, normal rhythm, normal heart sounds. Absent: systolic murmur, diastolic murmur, rubs, gallop, clicks GI/Abdominal exam: Present: soft, tenderness (R sided), normal bowel sounds. Absent: distended, guarding, rebound, rigid Extremities exam: Present: normal inspection Neurological exam: Present: alert, oriented X3, CN II-XII intact Psychiatric exam: Present: normal affect, normal mood Skin exam: Present: warm, dry, intact, normal color. Absent: rash Course Vital Signs 07/20/22 07/20/22 14:20 17:28 Temperature 98.2 F Pulse Rate 91 82 Respiratory 20 18 Rate Blood Pressure 152/79 141/106 O2 Sat by Pulse 99 99 Oximetry Medical Decision Making - Medical Decision Making Patient is a 36-year-old female presenting with chief complaint of right-sided pelvic pain. Pain is been ongoing for the last several days. No fever or chills, no bleeding or discharge, no nausea or vomiting. On examination there is some right sided pelvic tenderness. Lab work shows no leukocytosis or anemia. Coags are WNL. Lactic acid 0.6. Urine is unremarkable. Pelvis ultrasound shows right sided ovarian cyst. Ultrasound of the kidneys and bladder show no evidence of renal stone or obstruction and no evidence of a bladder mass. Patient reports improvement in pain with pain medicines, pain is consistent with that of an ovarian cyst. Patient is educated on supportive treatment and instructed to follow-up with her [facility]. Follow-up with PCP. Report back to ER with any new or worsening symptoms. Discussed return parameters and answered all questions. Patient conveyed verbal understanding and agreed to the plan. I discussed this case in detail with my attending Dr. Flores - Lab Data Result diagrams: 07/20/22 17:18 07/20/22 17:18 Lab Results 07/20/22 07/20/22 07/20/22 Range/Units 17:18 17:18 17:18 WBC 9.5 (3.8-10.6) k/uL RBC 4.72 (3.80-5.40) m/uL Hgb 15.0 (11.4-16.0) gm/dL Hct 43.1 (34.0-46.0) % MCV 91.2 (80.0-100.0) fL MCH 31.8 (25.0-35.0) pg MCHC 34.9 (31.0-37.0) g/dL RDW 11.8 (11.5-15.5) % Plt Count 232 (150-450) k/uL MPV 8.7 Neutrophils % 54 % Lymphocytes % 31 % Monocytes % 5 % Eosinophils % 8 % Basophils % 1 % Neutrophils # 5.1 (1.3-7.7) k/uL Lymphocytes # 2.9 (1.0-4.8) k/uL Monocytes # 0.4 (0-1.0) k/uL Eosinophils # 0.8 H (0-0.7) k/uL Basophils # 0.1 (0-0.2) k/uL PT 10.0 (9.0-12.0) sec INR 0.9 (<1.2) APTT 22.7 (22.0-30.0) sec Sodium (137-145) mmol/L Potassium (3.5-5.1) mmol/L Chloride (98-107) mmol/L Carbon Dioxide (22-30) mmol/L Anion Gap mmol/L BUN (7-17) mg/dL Creatinine (0.52-1.04) mg/dL Est GFR (CKD-EPI)AfAm (>60 ml/min/1.73 sqM) Est GFR (CKD-EPI)NonAf (>60 ml/min/1.73 sqM) Glucose (74-99) mg/dL Plasma Lactic Acid Abhi (0.7-2.0) mmol/L Calcium (8.4-10.2) mg/dL Total Bilirubin (0.2-1.3) mg/dL AST (14-36) U/L ALT (4-34) U/L Alkaline Phosphatase (38-126) U/L Total Protein (6.3-8.2) g/dL Albumin (3.5-5.0) g/dL Amylase (30-110) U/L Lipase (23-300) U/L Urine Color Colorless Urine Appearance Clear (Clear) Urine pH 6.0 (5.0-8.0) Ur Specific [place] 1.007 (1.001-1.035) Urine Protein Negative (Negative) Urine Glucose (UA) Negative (Negative) Urine Ketones Negative (Negative) Urine Blood Negative (Negative) Urine Nitrite Negative (Negative) Urine Bilirubin Negative (Negative) Urine Urobilinogen <2.0 (<2.0) mg/dL Ur Leukocyte Esterase Negative (Negative) Urine HCG, Qual (Not Detectd) 07/20/22 07/20/22 07/20/22 Range/Units 17:18 17:18 17:18 WBC (3.8-10.6) k/uL RBC (3.80-5.40) m/uL Hgb (11.4-16.0) gm/dL Hct (34.0-46.0) % MCV (80.0-100.0) fL MCH (25.0-35.0) pg MCHC (31.0-37.0) g/dL RDW (11.5-15.5) % Plt Count (150-450) k/uL MPV Neutrophils % % Lymphocytes % % Monocytes % % Eosinophils % % Basophils % % Neutrophils # (1.3-7.7) k/uL Lymphocytes # (1.0-4.8) k/uL Monocytes # (0-1.0) k/uL Eosinophils # (0-0.7) k/uL Basophils # (0-0.2) k/uL PT (9.0-12.0) sec INR (<1.2) APTT (22.0-30.0) sec Sodium 136 L (137-145) mmol/L Potassium 4.6 (3.5-5.1) mmol/L Chloride 106 (98-107) mmol/L Carbon Dioxide 19 L (22-30) mmol/L Anion Gap 11 mmol/L BUN 15 (7-17) mg/dL Creatinine 0.81 (0.52-1.04) mg/dL Est GFR (CKD-EPI)AfAm >90 (>60 ml/min/1.73 sqM) Est GFR (CKD-EPI)NonAf >90 (>60 ml/min/1.73 sqM) Glucose 78 (74-99) mg/dL Plasma Lactic Acid Abhi 0.6 L (0.7-2.0) mmol/L Calcium 9.5 (8.4-10.2) mg/dL Total Bilirubin 0.6 (0.2-1.3) mg/dL AST 29 (14-36) U/L ALT 15 (4-34) U/L Alkaline Phosphatase 59 (38-126) U/L Total Protein 7.2 (6.3-8.2) g/dL Albumin 4.6 (3.5-5.0) g/dL Amylase 65 (30-110) U/L Lipase 98 (23-300) U/L Urine Color Urine Appearance (Clear) Urine pH (5.0-8.0) Ur Specific [place] (1.001-1.035) Urine Protein (Negative) Urine Glucose (UA) (Negative) Urine Ketones (Negative) Urine Blood (Negative) Urine Nitrite (Negative) Urine Bilirubin (Negative) Urine Urobilinogen (<2.0) mg/dL Ur Leukocyte Esterase (Negative) Urine HCG, Qual Not Detected (Not Detectd) Disposition Clinical Impression: Ovarian cyst Disposition: HOME SELF-CARE Condition: Good Instructions (If sedation given, give patient instructions): Ovarian Cyst (ED) Additional Instructions: Follow-up with [facility]. Report back to ER with any new or worsening symptoms. Take Motrin and Tylenol as needed for pain control. Heating pad may be effective in alleviating your pain. Is patient prescribed a controlled substance at d/c from ED?: No Referrals: Rashi Hermosillo DO [Primary Care Provider] - 1-2 days Time of Disposition: 19:05
== END 2022-07-20 19:30 | disposition home or self-care (01) ==
LOC: EC 14:10
DX: R10.2 Pelvic and perineal pain (principal); F17.200 Nicotine dependence, unspecified, uncomplicated; J45.909 Unspecified asthma, uncomplicated; K21.9 Gastro-esophageal reflux disease without esophagitis; M19.90 Unspecified osteoarthritis, unspecified site; Z88.2 Allergy status to sulfonamides; Z88.8 Allergy status to other drugs, medicaments and biological substances; Z79.51 Long term (current) use of inhaled steroids
CPT/HCPCS: 36415; 80053; 82150; 83605; 83690; 85025; 85610; 85730; 81003; 81025; 76856; 76770; 99284; 96374; 96361 ×2; J2270; 93976

== ENCOUNTER → 2022-08-19 | Day surgery (SDC) | payer OTHER ==
[2022-08-18 08:52] VITALS: BMI 27.3
[~2022-08-19] MED LIST changes: +DIPHENOX-ATROP 2.5-0.025MG/5ML 60 ML BOTTLE PO STA; -LIDOCAINE 1% (10MG/ML) FOR IV START INTRADERMA PRN; +LOPERAMIDE 2 MG CAP PO STA; -MIDAZOLAM 2 MG/2 ML VIAL IV PRN; +SODIUM CHLORIDE 0.9% 1,000 ML IV ONE; +SODIUM CHLORIDE 0.9% 1,000 ML IV SCH
[2022-08-19 10:34] VITALS: BP 139/88; PULSE 82; RESP 16; TEMP 98.5
--- NOTE | 2022-08-22 09:31 | P.EPPROC ---
- EP Procedure Note Electrophysiology Procedure Note: Diagnosis Syncope Twelve-lead EKG Sinus mechanism normal CO interval narrow QRS normal ST segments normal QT interval No delta waves, Tilt table test per protocol Baseline blood pressure 126/85 mmHg, heart rate 70 beats and sinus mechanism Patient was tilted upright at 70 per protocol No change in heart rate of blood pressure with upright tilting without any pharmacologic stress No syncope No evidence for neurocardiogenic syncope or dysautonomia She was laid supine once again Administered 0.2 mg of sublingual nitroglycerin Tilted upright again for 20 minutes No change in heart rate and blood pressure No evidence for neurocardiogenic syncope Impression Normal twelve-lead EKG Normal heart rate and blood pressure response to tilt table testing without and with pharmacologic stress
== END ==
LOC: CATHEP 09:43
PROVIDERS: ATTEND Internal Medicine Clinical Cardiac Electrophysiology
DX: R55 Syncope and collapse (principal); I47.1 Supraventricular tachycardia
CPT/HCPCS: 93660

== ENCOUNTER 2022-10-07 10:13 | Day surgery (SDC) | payer OTHER ==
[~2022-10-07 10:13] MED LIST changes: -DIPHENOX-ATROP 2.5-0.025MG/5ML 60 ML BOTTLE PO STA; -LACTATED RINGERS 1,000 ML IV SCH; -LOPERAMIDE 2 MG CAP PO STA; -SODIUM CHLORIDE 0.9% 1,000 ML IV ONE
[2022-10-07 10:59] VITALS: RESP 18; TEMP 98.7
[2022-10-07 11:18] LABS: Basophils % (A) 1 %; Eosinophils # (A) 0.4 k/uL (0-0.7); Eosinophils % (A) 6 %; HCT 43.2 % (34.0-46.0); Lymphocytes # (A) 2.2 k/uL (1.0-4.8); Lymphocytes % (A) 30 %; MCH 31.7 pg (25.0-35.0); MCHC 34.8 g/dL (31.0-37.0); MCV 91.1 fL (80.0-100.0); Mean Platelet Volume 8.8; Monocytes # (A) 0.3 k/uL (0-1.0); Monocytes % (A) 5 %; Neutrophils # (A) 4.1 k/uL (1.3-7.7); Neutrophils % (A) 57 %; Platelet Count 249 k/uL (150-450); RBC 4.74 m/uL (3.80-5.40); WBC 7.2 k/uL (3.8-10.6)
[2022-10-07] MEDS ORDERED: MEPERIDINE 50 MG/ML SYRINGE IVP STA (11:24)
[2022-10-07 11:28] LABS: African American GFR (CKD) >90 (>60 ml/min/1.73 sqM); Anion Gap 8 mmol/L; Blood Urea Nitrogen 13 mg/dL (7-17); Calcium 9.5 mg/dL (8.4-10.2); Carbon Dioxide 25 mmol/L (22-30); Chloride 106 mmol/L (98-107); Glucose 84 mg/dL (74-99); Non-African American GFR(CKD) 88 (>60 ml/min/1.73 sqM); Potassium 4.4 mmol/L (3.5-5.1); Sodium 139 mmol/L (137-145)
[2022-10-07] MEDS ORDERED: MIDAZOLAM 2 MG/2 ML VIAL ONE (12:15)
[2022-10-07] MEDS ORDERED: fentaNYL (PF) 50 MCG/ML 2 ML AMP ONE (12:15)
[2022-10-07] MEDS ORDERED: ISOPROTERENOL 250 MCG/1.25 ML SYR IV ONE (12:15)
[2022-10-07] MEDS: LIDOCAINE 1% INJ 10MG/ML (30 ML VIAL-PF) SQ ONE ×2 (12:55→14:19)
--- NOTE | 2022-10-07 13:57 | P.EPPROC ---
- EP Procedure Note Electrophysiology Procedure Note: Diagnosis Recurrent palpitations Recurrent syncope in one sitting Normal tilt table test Normal twelve-lead EKG Final result Normal sinus node function Normal AV node function No evidence for slow pathway conduction, no evidence for accessory pathway conduction Normal AH and HV intervals No SVT or inducible VT on and off Isuprel Plan Proceed with implantation of loop monitor for evaluation of recurrent syncope Procedure Diagnostic EP study with attempted arrhythmia induction CS pacing and recording Programmed stimulation after Isuprel Details Patient was brought to the EP lab in a fasting state. Written informed consent was obtained prior to procedure The left and right groins were prepped and draped as a protocol Venous sheaths placed in the left femoral vein Diagnostic catheter placed in the high right atrium His bundle area right ventricle and later the coronary sinus Isuprel was used through the test Sinus cycle length 851 ms, TX interval 153 ms, QRS 99 ms and QT 369 ms AH interval 78 ms, HV interval 44 ms, normal Sinus recovery times at 600, 504 100 ms were 1196, 858 and 1935 ms. Corrected to sinus recovery times abnormal AV node Wenckebach block 350 ms. No evidence for slow pathway conduction no delta waves The Wenckebach block 330 ms Parahisian pacing performed. Ezequiel response noted Exit stimulation from the high right atrium performed. No SVT Burst stimulation performed from the 100 atrium. No arrhythmias Extra stimulation from the right ventricle. No arrhythmias Isuprel infusion wide open and then at 2 mics AV node Wenckebach block improved to 220 ms Right bundle branch block aberrancy noted during atrial pacing Extra stimulation performed with single extra stimuli and on Ranexa stomach. No SVT Catheters removed to the coronary sinus Straight pacing performed CS Extra stimulation performed with double and triple extra stimulation on Isuprel no inducible SVT Extra stimulation from the right ventricle no SVT or ventricular tachycardia
--- NOTE | 2022-10-07 14:00 | P.PRLE ---
RE: Paty Perez Dear Jessi Newman underwent a diagnostic EP study for evaluation of recurrent syncope him a some episodes even while sitting She is has had a normal tilt table test previously The EP study did not show any evidence for inducible arrhythmia She underwent implantation of a loop monitor Her 2-D echo shows normal LV size and function Previously her event monitor did not show any arrhythmias Twelve-lead EKG is completely normal If the loop monitor shows any arrhythmias I will forward the results to Thank you for entrusting me with the care of the patient Warm regards Sincerely Bernabe Babcock
--- NOTE | 2022-10-07 14:03 | P.HPCAR ---
History of Present Illness This is Dr. Babcock dictating an H/P on this patient The patient was interviewed and examined IMPRESSION / ASSESSMENT: Patient continues to have recurrent syncope Most recent episode within the last one week while sitting Tilt table test normal She also complains of extreme exhaustion PLAN: Diagnostic EP study to evaluate for syncope HPI Patient continues to have episodes of syncope Most recent episode within the last one week occurred while she was sitting She also complains of palpitations ROS: No fever chills or rigors, no cough, phlegm or expectoration, no nausea, vomiting or diarrhea, no hematuria, dysuria, no musculoskeletal complaints, no strokes or seizures, no skin lesions. EXAMINATION: 126/95 mmHg pulse rate in the 80s afebrile Heart sounds S1 and S2 are normal no murmurs gallop or rub Breath sounds are clear no rhonchi no crackles Extremities warm no edema REVIEW OF LABS, ECG & MEDICAL DATA Hold twelve-lead EKG Normal 2-D echo with normal LV size and function and normal valves No arrhythmias and event monitoring Physical Exam Vitals: Vital Signs Temp Pulse Resp BP Pulse Ox 10/07/22 10:54 98.7 F 85 18 126/95 99 Intake and Output 10/06/22 10/07/22 10/07/22 22:59 06:59 14:59 Intake Total 170 Balance 170 Intake: IV 170 Past Medical History Past Medical History: Asthma, Fibromyalgia, GERD/Reflux, Osteoarthritis (OA), Skin Disorder, Syncope Additional Past Medical History / Comment(s): Sjogren's syndrome. Past hx. ulcer. Chronic nausea. HX Kidney stones; ECZEMA. occasional dysphagia, see Dr. Babcock H & P History of Any Multi-Drug Resistant Organisms: MRSA Date of last positivie culture/infection: 2009 MDRO Source:: left forearm Past Surgical History: Section, Cholecystectomy, Hysterectomy, Tubal Ligation Additional Past Surgical History / Comment(s): C/Sx3, EGD, colonoscopy. HIATAL HERNIA REPAIR., tilt table test Past Anesthesia/Blood Transfusion Reactions: No Reported Reaction Additional Past Anesthesia/Blood Transfusion Reaction / Comment(s): STATES HAS VERY DIFFICULT TIME WITH PAIN CONTROL POST OP R/T AUTOIMMUNE DX, no problems w/blood transfusion in past Smoking Status: Current every day smoker - Past Family History Mother Family Medical History: Deep Vein Thrombosis (DVT) Sister(s) Family Medical History: Asthma Physical Examination Vital Signs Temp Pulse Resp BP Pulse Ox 10/07/22 10:54 98.7 F 85 18 126/95 99 Intake and Output 10/06/22 10/07/22 10/07/22 22:59 06:59 14:59 Intake Total 170 Balance 170 Intake: IV 170 Results 10/07/22 10:40 10/07/22 10:40 CBC 10/07/22 Range/Units 10:40 WBC 7.2 (3.8-10.6) k/uL RBC 4.74 (3.80-5.40) m/uL Hgb 15.0 (11.4-16.0) gm/dL Hct 43.2 (34.0-46.0) % Plt Count 249 (150-450) k/uL Comprehensive Metabolic Panel 10/07/22 Range/Units 10:40 Sodium 139 (137-145) mmol/L Potassium 4.4 (3.5-5.1) mmol/L Chloride 106 (98-107) mmol/L Carbon Dioxide 25 (22-30) mmol/L BUN 13 (7-17) mg/dL Creatinine 0.86 (0.52-1.04) mg/dL Glucose 84 (74-99) mg/dL Calcium 9.5 (8.4-10.2) mg/dL Current Medications Generic Name Dose Route Start Last Admin Trade Name Freq PRN Reason Stop Dose Admin Sodium Chloride 1,000 mls @ 20 mls/hr 10/07/22 06:23 10/07/22 10:59 Saline 0.9% IV 11/06/22 06:24 170 mls .Q24H NEHA Administration Intake and Output 10/06/22 10/07/22 10/07/22 22:59 06:59 14:59 Intake Total 170 Balance 170 Intake: IV 170 10/07/22 10:40 10/07/22 10:40
--- NOTE | 2022-10-07 14:26 | P.EPPROC ---
- EP Procedure Note Electrophysiology Procedure Note: Loop monitor implant Primary physicians: Jessi Hermosillo Sectionizer: Bernabe Babcock Indication: Recurrent syncope, normal EP study, normal tilt table test Patient was brought to the EP lab in a fasting state. Written informed consent was obtained prior to the procedure. The left pectoral area was prepped and draped per protocol. Intravenous antibiotic was administered preoperatively. A subcutaneous Loop monitor was implanted successfully and the wound was closed per protocol. The device was programmed to detect significant dario- arrhythmic and tachy-arrhythmic events, per protocol. Device and programming details: Syncope protocol Loop implant after a normal EP study, anesthesia in attendance
[2022-10-07] MEDS ORDERED: PROCHLORPERAZINE INJ 10 MG/2 ML VIAL IVP STA (14:47)
[2022-10-07 16:47] VITALS: BP 115/72; PULSE 86
== END 2022-10-07 17:08 | disposition home or self-care (01) ==
LOC: CATHEP 10:13
PROVIDERS: ATTEND Internal Medicine Clinical Cardiac Electrophysiology
DX: I47.1 Supraventricular tachycardia (principal); I44.1 Atrioventricular block, second degree; I45.10 Unspecified right bundle-branch block; J45.909 Unspecified asthma, uncomplicated; K21.9 Gastro-esophageal reflux disease without esophagitis; M79.7 Fibromyalgia; M19.90 Unspecified osteoarthritis, unspecified site; L98.9 Disorder of the skin and subcutaneous tissue, unspecified; M35.00 Sjogren syndrome, unspecified; Z87.442 Personal history of urinary calculi; Z86.14 Personal history of Methicillin resistant Staphylococcus aureus infection; Z16.35 Resistance to multiple antimicrobial drugs; Z90.49 Acquired absence of other specified parts of digestive tract; Z98.890 Other specified postprocedural states; Z98.51 Tubal ligation status; F17.210 Nicotine dependence, cigarettes, uncomplicated; F32.A Depression, unspecified; Z88.2 Allergy status to sulfonamides; Z88.1 Allergy status to other antibiotic agents; Z83.2 Family history of diseases of the blood and blood-forming organs and certain disorders involving the immune mechanism; Z82.5 Family history of asthma and other chronic lower respiratory diseases; Z79.51 Long term (current) use of inhaled steroids; Z79.899 Other long term (current) drug therapy; Z79.83 Long term (current) use of bisphosphonates; Z82.49 Family history of ischemic heart disease and other diseases of the circulatory system
CPT/HCPCS: 93623; 93620; 33285; 80048; 85025; C1894; C1769 ×2; C1760; C1730 ×3; C1764; J2250; J0780; J0690; J2001; J3010

== ENCOUNTER 2023-05-11 11:59 | Emergency (ER) | payer OTHER ==
[2023-05-11] MEDS ORDERED: LORazepam 2 MG/ML INJ IV STA (12:22)
--- NOTE | 2023-05-11 12:29 | ED ---
Chest Pain HPI - General Chief Complaint: Chest Pain Stated Complaint: chest pain Time Seen by Provider: 05/11/23 12:12 Source: patient, RN notes reviewed Mode of arrival: ambulatory Limitations: no limitations - History of Present Illness Initial Comments: This is a pleasant 37-year-old female presents to emergency department complaining of chest pains which started last night. She is prone to this plan sided deficit. Patient states that she has situational stress and anxiety issues. suicidal or homicidal ideation. she has had this in the past. describes sharp pains in the left anterior chest. Radiation into the left shoulder area. No alleviating or exacerbating factors otherwise. Patient is cigarette smoker. Does partaking binge alcohol drinking. Last time alcohol binging was night. Patient previously has had issues with this and had a cardiac catheter by Dr. Dang. Patient had a loop recorder placed. No headache, no fever or chills, no changes in vision or hearing, no sore throat or difficulty with speech, no neck pain, no shortness of breath, no abdominal pain, no nausea or vomiting, no changes in urination or bowel movements, no numbness or tingling, no extremity pain, no skin rashes or lesions. Past medical, surgical, social, and family history reviewed. MD Complaint: chest pain - Related Data Home Medications Medication Instructions Recorded Confirmed Prochlorperazine [Compazine] 10 mg PO DAILY 09/10/18 05/11/23 Sertraline [Zoloft] 200 mg PO DAILY 03/07/20 05/11/23 Albuterol Sulfate [Proair Hfa] 2 puff INHALATION RT-Q6H PRN 02/20/21 05/11/23 Pregabalin [Lyrica] 150 mg PO BID 05/14/22 05/11/23 Previous Rx's Medication Instructions Recorded LORazepam [Ativan] 0.5 mg PO TID PRN #9 tab 05/11/23 Allergies Allergy/AdvReac Type Severity Reaction Status Date / Time Sulfa (Sulfonamide Allergy Rash/Hives Verified 05/11/23 14:08 Antibiotics) metoclopramide [From Reglan] AdvReac agitation, Verified 05/11/23 14:08 restlessness Review of Systems ROS Statement: Those systems with pertinent positive or pertinent negative responses have been documented in the HPI. ROS Other: All systems not noted in ROS Statement are negative. EKG Findings - EKG Comments: EKG Findings:: EKG independently interpreted by me at 12:30 PM and attending physician reveals sinus rhythm with a rate of 87. Normal axis, normal intervals, no acute ST or T-wave changes. Computerized interpretation of right bundle branch block. However, on comparison to the previous study from 08/19/2022 there is no significant change. Past Medical History Past Medical History: Asthma, Fibromyalgia, GERD/Reflux, Osteoarthritis (OA), Skin Disorder, Syncope Additional Past Medical History / Comment(s): Sjogren's syndrome. Past hx. ulcer. Chronic nausea. HX Kidney stones; ECZEMA. occasional dysphagia, see Dr. Babcock H & P History of Any Multi-Drug Resistant Organisms: MRSA Date of last positivie culture/infection: 2009 MDRO Source:: left forearm Past Surgical History: Section, Cholecystectomy, Hysterectomy, Tubal Ligation Additional Past Surgical History / Comment(s): C/Sx3, EGD, colonoscopy. HIATAL HERNIA REPAIR., tilt table test Past Anesthesia/Blood Transfusion Reactions: No Reported Reaction Additional Past Anesthesia/Blood Transfusion Reaction / Comment(s): STATES HAS VERY DIFFICULT TIME WITH PAIN CONTROL POST OP R/T AUTOIMMUNE DX, no problems w/blood transfusion in past Past Psychological History: Anxiety, Depression Smoking Status: Current every day smoker - Past Family History Mother Family Medical History: Deep Vein Thrombosis (DVT) Sister(s) Family Medical History: Asthma General Exam - General Exam Comments Initial Comments: Patient does not appear to be ill or toxic. Vital signs stable, patient afebrile. Cranial nerves II through XII grossly intact. Alert and oriented 4. Limitations: no limitations General appearance: alert, anxious Head exam: Present: atraumatic, normocephalic, normal inspection Eye exam: Present: normal appearance, PERRL, EOMI. Absent: scleral icterus, conjunctival injection, periorbital swelling ENT exam: Present: normal exam, normal oropharynx, mucous membranes dry, mucous membranes moist, normal external ear exam Neck exam: Present: normal inspection, full ROM. Absent: tenderness, meningismus, lymphadenopathy Respiratory exam: Present: normal lung sounds bilaterally. Absent: respiratory distress, wheezes, rales, rhonchi, stridor, chest wall tenderness, accessory muscle use, decreased breath sounds, prolonged expiratory Cardiovascular Exam: Present: regular rate, normal rhythm, normal heart sounds. Absent: systolic murmur, diastolic murmur, rubs, gallop, clicks GI/Abdominal exam: Present: soft, normal bowel sounds. Absent: distended, tenderness, guarding, rebound, rigid Extremities exam: Present: normal inspection, full ROM, normal capillary refill. Absent: tenderness, pedal edema, joint swelling, calf tenderness Back exam: Present: normal inspection Neurological exam: Present: alert, oriented X3, CN II-XII intact Psychiatric exam: Present: normal affect, anxious. Absent: suicidal ideation Skin exam: Present: warm, dry, intact, normal color. Absent: rash, cyanosis, diaphoretic, erythema, urticaria Course Vital Signs 05/11/23 05/11/23 12:05 13:17 Temperature 97.9 F Pulse Rate 90 80 Respiratory 16 18 Rate Blood Pressure 131/84 133/90 O2 Sat by Pulse 98 97 Oximetry - Reevaluation(s) Reevaluation #1: 05/11/23 14:15 Patient reevaluated, essentially asymptomatic. Much improved after anxiety medications. Patient's heart score is essentially 0, 1 if you count history as being moderately suspicious which does not appear to be the case. Patient has had these symptoms previously related to anxiety. Discussed with ED attending physician. Chest Pain MDM - MDM Was pt. sent in by a medical professional or institution? @ -No Did you speak to anyone other than the patient for history? @ - Did you review nursing and triage notes? @ -Agree Were old charts reviewed? @ -Previous ER visits and hospitalization notes reviewed Differential Diagnosis? @ -Differential Chest Pain: Stable Angina, Unstable Angina, STEMI, NSTEMI Aortic Dissection, Pneumothorax, Musculoskeletal, Esophageal Spasm GERD, Cholecystitis, Pancreatitis, Zoster, this is not meant to be an all-inclusive list. Unlikely to be cardiac ischemic painhas experienced this in the past. Given the patient's age this is less likely. Not consistent with pulmonary embolus. Doesn't seem to be related to breathing or pleurisy. Patient is PERC 0. Heart score 0 EKG interpreted by me (3pts min.)? @ -Independent interpretation, no acute change, interpreted by the ED attending physician as well X-rays interpreted by me (1pt min.)? @ -Independent interpretation of the chest x-ray by me reveals no acute pathology. CT interpreted by me (1pt min.)? @ -[none] U/S interpreted by me (1pt. min.)? @ -[none] What testing was considered but not performed? (CT, X-rays, U/S, labs)? Why? @ [CT, X-rays, U/S, labs? Why?] What meds were considered but not given? Why? @ -[none] Did you discuss the management of the patient with other professionals? @ -The case was discussed in detail with ED attending physician. Presentation, findings, treatment plan discussed in detail. Did you reconcile home meds? @ -[none] Was smoking cessation discussed for >3mins.? @ -[none] Was critical care preformed (if so, how long)? @ -[none] Were there social determinants of health that impacted care today? How? (Homelessness, low income, unemployed, alcoholism, drug addiction, transportation, low edu. Level, literacy, decrease access to med. care, correction, rehab)? @Cigarette smoking, patient counseled on smoking cessation for greater than 3 minutes. Risk, benefits, possible treatments discussed. Patient voiced understanding Was there de-escalation of care discussed even if they declined? (Discuss DNR or withdrawal of care, Hospice)? @ -[Discuss DNR or withdrawal of care, Hospice?] What co-morbidities impacted this encounter? (DM, HTN, Smoking, COPD, CAD, Cancer, CVA, Hep., AIDS, mental health diagnosis, sleep apnea, morbid obesity)? @ -Cigarette smoking Was patient admitted / discharged? @ -Patient discharged in stable condition, improved Undiagnosed new problem with uncertain prognosis? @ -Exacerbation of anxiety. Drug Therapy requiring intensive monitoring for toxicity (Heparin, Nitro, Insulin, Cardizem)? @ -[none] Were any procedures done? @ -[none] Diagnosis/symptom? @ -Atypical chest pain, anxiety Acute, or Chronic, or Acute on Chronic? @ -Acute exacerbation of chronic Uncomplicated (without systemic symptoms) or Complicated (systemic symptoms)? @ -Relatively uncomplicated, does not appear to pose threat to life or bodily function Side effects of treatment? @ -[none] Exacerbation, Progression, or Severe Exacerbation] @ -Exacerbation Poses a threat to life or bodily function? @ -[no] Patient discharged to shared decision-making. Patient states she feels well enough to go home. She agrees it is likely due to anxiety. Patient was told to return to the ER for any signs or symptoms worsen. Told to return immediately if any other problems arise. All questions answered. Treatment plan discussed. Patient in agreement Every effort has been made to ensure accuracy of this dictation. However, due to the limitations of electronic medical records and dictation devices, errors in charting still occur. Disposition Clinical Impression: Atypical chest pain, Anxiety Disposition: HOME SELF-CARE Condition: Stable Instructions (If sedation given, give patient instructions): Chest Pain (ED), Anxiolysis in Adults (ED) Additional Instructions: Follow-up with your regular physician as directed. Return to the ER immediately if any symptoms worsen, new symptoms arise, or any other problems develop. Do not drive or operate machinery while taking the anxiety medication. Is patient prescribed a controlled substance at d/c from ED?: Yes When asked, does pt state using other controlled substances?: No If prescribed controlled substance>3 days was MAPS reviewed?: Prescribed <3 Days Referrals: Rashi Hermosillo DO [Primary Care Provider] - 1-2 days Time of Disposition: 14:20
[2023-05-11 13:02] LABS: Basophils # (A) 0.1 k/uL (0-0.2); Basophils % (A) 1 %; Eosinophils # (A) 0.3 k/uL (0-0.7); Eosinophils % (A) 3 %; HCT 42.4 % (34.0-46.0); HGB 14.6 gm/dL (11.4-16.0); Lymphocytes # (A) 2.1 k/uL (1.0-4.8); Lymphocytes % (A) 23 %; MCH 31.6 pg (25.0-35.0); MCHC 34.4 g/dL (31.0-37.0); MCV 91.9 fL (80.0-100.0); Mean Platelet Volume 8.6; Monocytes # (A) 0.4 k/uL (0-1.0); Monocytes % (A) 4 %; Neutrophils # (A) 6.2 k/uL (1.3-7.7); Neutrophils % (A) 68 %; Platelet Count 192 k/uL (150-450); RBC 4.62 m/uL (3.80-5.40); RDW 12.5 % (11.5-15.5); WBC 9.1 k/uL (3.8-10.6)
[2023-05-11 13:18] LABS: ALT 15 U/L (4-34); AST 23 U/L (14-36); African American GFR (CKD) >90 (>60 ml/min/1.73 sqM); Albumin 4.4 g/dL (3.5-5.0); Alcohol <10 mg/dL; Alkaline Phosphatase 73 U/L (38-126); Anion Gap 10 mmol/L; Blood Urea Nitrogen 13 mg/dL (7-17); Calcium 9.3 mg/dL (8.4-10.2); Carbon Dioxide 21 mmol/L (22-30); Chloride 107 mmol/L (98-107); Glucose 114 mg/dL (74-99); Magnesium 1.8 mg/dL (1.6-2.3); Non-African American GFR(CKD) >90 (>60 ml/min/1.73 sqM); Sodium 138 mmol/L (137-145); Total Bilirubin 0.7 mg/dL (0.2-1.3); Total Protein 7.3 g/dL (6.3-8.2)
[2023-05-11 13:20] VITALS: RESP 18
--- NOTE | 2023-05-11 13:21 | XR ---
EXAMINATION TYPE: XR chest 1V portable DATE OF EXAM: 05/11/2023 COMPARISON: 05/14/2022. HISTORY: Chest pain. TECHNIQUE: Single frontal view of the chest is obtained. FINDINGS: There is no focal air space opacity, pleural effusion, or pneumothorax seen. The cardiac silhouette size is within normal limits. The osseous structures are intact. IMPRESSION: No acute process.
[2023-05-11 14:41] VITALS: BP 127/96; PULSE 85; TEMP 98.6
== END 2023-05-11 14:50 | disposition home or self-care (01) ==
LOC: EC 11:59
DX: R07.89 Other chest pain (principal); F41.9 Anxiety disorder, unspecified; J45.909 Unspecified asthma, uncomplicated; F32.A Depression, unspecified; F17.210 Nicotine dependence, cigarettes, uncomplicated; Z79.899 Other long term (current) drug therapy; Z88.8 Allergy status to other drugs, medicaments and biological substances; Z88.2 Allergy status to sulfonamides
CPT/HCPCS: 36415; 93005; 80053; 83735; 84484; 85025; 71045; 99285; 96374; G0480; J2060; 80320

== ENCOUNTER 2023-06-16 11:37 | Emergency (ER) | payer OTHER ==
[2023-06-16] MEDS ORDERED: ONDANSETRON 4 MG/2 ML VIAL IVP STA (12:16)
[2023-06-16] MEDS ORDERED: SODIUM CHLORIDE 0.9% 2,000 ML IV STA (12:16)
[2023-06-16] MEDS ORDERED: DICYCLOMINE 20 MG TAB PO STA (12:16)
[2023-06-16] MEDS ORDERED: diphenhydrAMINE 50 MG/ML 1 ML VIAL IVP STA (12:33)
[2023-06-16] MEDS ORDERED: KETOROLAC 15 MG/ML 1 ML VIAL IVP STA (12:33)
[2023-06-16 12:59] LABS: Basophils % (A) 0 %; Eosinophils # (A) 0.7 k/uL (0-0.7); Eosinophils % (A) 8 %; HCT 44.2 % (34.0-46.0); HGB 14.7 gm/dL (11.4-16.0); Lymphocytes # (A) 2.6 k/uL (1.0-4.8); Lymphocytes % (A) 27 %; MCH 31.1 pg (25.0-35.0); MCHC 33.3 g/dL (31.0-37.0); MCV 93.5 fL (80.0-100.0); Mean Platelet Volume 8.5; Monocytes # (A) 0.4 k/uL (0-1.0); Monocytes % (A) 4 %; Neutrophils # (A) 5.6 k/uL (1.3-7.7); Neutrophils % (A) 60 %; Platelet Count 260 k/uL (150-450); RBC 4.73 m/uL (3.80-5.40); RDW 12.3 % (11.5-15.5); WBC 9.4 k/uL (3.8-10.6)
[2023-06-16 13:00] VITALS: RESP 18
[2023-06-16 13:14] LABS: Appearance,Urine Clear (Clear); Bilirubin,Urine Negative (Negative); Blood,Urine Negative (Negative); Color,Urine Colorless; Glucose,Urine (UA) Negative (Negative); Ketones,Urine Negative (Negative); Leukocyte Esterase,Urine Negative (Negative); Nitrite,Urine Negative (Negative); Protein,Urine Negative (Negative); Specific Gravity,Urine 1.003 (1.001-1.035); Urobilinogen,Urine <2.0 mg/dL (<2.0)
[2023-06-16 13:18] LABS: ALT 13 U/L (4-34); AST 23 U/L (14-36); African American GFR (CKD) >90 (>60 ml/min/1.73 sqM); Albumin 4.1 g/dL (3.5-5.0); Alkaline Phosphatase 74 U/L (38-126); Anion Gap 9 mmol/L; Blood Urea Nitrogen 8 mg/dL (7-17); Calcium 9.7 mg/dL (8.4-10.2); Carbon Dioxide 19 mmol/L (22-30); Chloride 109 mmol/L (98-107); Glucose 80 mg/dL (74-99); Lipase 98 U/L (23-300); Non-African American GFR(CKD) >90 (>60 ml/min/1.73 sqM); Potassium 4.3 mmol/L (3.5-5.1); Sodium 137 mmol/L (137-145); Total Bilirubin 0.4 mg/dL (0.2-1.3); Total Protein 7.2 g/dL (6.3-8.2)
--- NOTE | 2023-06-16 14:02 | ED ---
Nausea/Vomiting/Diarrhea HPI - General Chief complaint: Nausea/Vomiting/Diarrhea Stated complaint: Migraine,Abd Pain Time Seen by Provider: 06/16/23 11:53 Source: patient, RN notes reviewed Mode of arrival: ambulatory Limitations: no limitations - History of Present Illness Initial comments: 37-year-old female presents emergency Department with chief complaint of nausea vomiting diarrhea. Symptoms started 4 days ago. She complains associated headache, abdominal cramping. Patient states she feels exactly the same when she had salmonella. She was seen by GI and was treated with ciprofloxacin because her ongoing issues. Patient does have a history of Sjogren's. Patient denies any neurologic medications. Patient denies any rectal bleeding. Patient states that she is very nauseated this time unable to coming for her headache. - Related Data Home Medications Medication Instructions Recorded Confirmed Prochlorperazine [Compazine] 10 mg PO DAILY 09/10/18 05/11/23 Sertraline [Zoloft] 200 mg PO DAILY 03/07/20 05/11/23 Albuterol Sulfate [Proair Hfa] 2 puff INHALATION RT-Q6H PRN 02/20/21 05/11/23 Pregabalin [Lyrica] 150 mg PO BID 05/14/22 05/11/23 Previous Rx's Medication Instructions Recorded LORazepam [Ativan] 0.5 mg PO TID PRN #9 tab 05/11/23 Ondansetron Odt [Zofran Odt] 4 mg PO Q8HR PRN #10 tab 06/16/23 Allergies Allergy/AdvReac Type Severity Reaction Status Date / Time Sulfa (Sulfonamide Allergy Rash/Hives Verified 06/16/23 11:38 Antibiotics) metoclopramide [From Reglan] AdvReac agitation, Verified 06/16/23 11:38 restlessness Review of Systems ROS Statement: Those systems with pertinent positive or pertinent negative responses have been documented in the HPI. ROS Other: All systems not noted in ROS Statement are negative. Past Medical History Past Medical History: Asthma, Fibromyalgia, GERD/Reflux, Osteoarthritis (OA), Skin Disorder, Syncope Additional Past Medical History / Comment(s): Sjogren's syndrome. Past hx. ulcer. Chronic nausea. HX Kidney stones; ECZEMA. occasional dysphagia, see Dr. Babcock H & P History of Any Multi-Drug Resistant Organisms: MRSA Date of last positivie culture/infection: 2009 MDRO Source:: left forearm Past Surgical History: Section, Cholecystectomy, Hysterectomy, Tubal Ligation Additional Past Surgical History / Comment(s): C/Sx3, EGD, colonoscopy. HIATAL HERNIA REPAIR., tilt table test Past Anesthesia/Blood Transfusion Reactions: No Reported Reaction Additional Past Anesthesia/Blood Transfusion Reaction / Comment(s): STATES HAS VERY DIFFICULT TIME WITH PAIN CONTROL POST OP R/T AUTOIMMUNE DX, no problems w/blood transfusion in past Past Psychological History: Anxiety, Depression Smoking Status: Current every day smoker Past Alcohol Use History: None Reported Past Drug Use History: None Reported - Past Family History Mother Family Medical History: Deep Vein Thrombosis (DVT) Sister(s) Family Medical History: Asthma General Exam Limitations: no limitations General appearance: alert, in no apparent distress Head exam: Present: atraumatic, normocephalic, normal inspection Eye exam: Present: normal appearance, PERRL, EOMI. Absent: scleral icterus, conjunctival injection, periorbital swelling ENT exam: Present: normal exam, normal oropharynx, mucous membranes moist Neck exam: Present: normal inspection, full ROM. Absent: tenderness, meningismus, lymphadenopathy Respiratory exam: Present: normal lung sounds bilaterally. Absent: respiratory distress, wheezes, rales, rhonchi, stridor Cardiovascular Exam: Present: regular rate, normal rhythm, normal heart sounds. Absent: systolic murmur, diastolic murmur, rubs, gallop, clicks GI/Abdominal exam: Present: soft, normal bowel sounds. Absent: distended, tenderness, guarding, rebound, rigid Back exam: Absent: CVA tenderness (R), CVA tenderness (L) Neurological exam: Present: alert Course Vital Signs 06/16/23 06/16/23 06/16/23 11:38 12:54 13:53 Temperature 97.7 F 98.4 F Pulse Rate 72 66 70 Respiratory 16 18 18 Rate Blood Pressure 147/94 142/101 133/96 O2 Sat by Pulse 99 99 99 Oximetry Medical Decision Making - Medical Decision Making Was pt. sent in by a medical professional or institution (, PA, [employer], urgent care, hospital, or [facility]...) When possible be specific @ -No Did you speak to anyone other than the patient for history (EMS, parent, family, police, friend...)? What history was obtained from this source @ -No Did you review nursing and triage notes (agree or disagree)? Why? @ -I reviewed and agree with nursing and triage notes Were old charts reviewed (outside hosp., previous admission, EMS record, old EKG, old radiological studies, urgent care reports/EKG's, [facility] records)? Report findings @ -No old charts were reviewed Differential Diagnosis (chest pain, altered mental status, abdominal pain women, abdominal pain men, vaginal bleeding, weakness, fever, dyspnea, syncope, headache, dizziness, GI bleed, back pain, seizure, CVA, palpatations, mental health, musculoskeletal)? @ -Differential Abdominal Pain Women: Appendicitis, Cholecystitis, diverticulosis, ischemic bowel, pancreatitis, hepatitis, UTI, gastroenteritis, AAA, incarcerated hernia, bowel obstruction, constipation, inflammatory bowel, hepatitis, peptic ulcer disease, splenic infarction, perforated viscus, vulvitis, ovarian torsion, PID, kidney stone, placenta abruption, this is not meant to be an all-inclusive listble EKG interpreted by me (3pts min.). @ -None X-rays interpreted by me (1pt min.). @ -None done CT interpreted by me (1pt min.). @ -None done U/S interpreted by me (1pt. min.). @ -None done What testing was considered but not performed or refused? (CT, X-rays, U/S, labs)? Why? @ -None What meds were considered but not given or refused? Why? @ -None Did you discuss the management of the patient with other professionals (professionals i.e. , PA, [employer], lab, RT, psych nurse, mental health social worker, silk screen repairer, teacher, child support case officer, case manager specialist)? Give summary @ -No Was smoking cessation discussed for >3mins.? @ -No Was critical care preformed (if so, how long)? @ -No Were there social determinants of health that impacted care today? How? (Homelessness, low income, unemployed, alcoholism, drug addiction, transportation, low edu. Level, literacy, decrease access to med. care, [facility]p, rehab)? @ -No Was there de-escalation of care discussed even if they declined (Discuss DNR or withdrawal of care, Hospice)? DNR status @ -No What co-morbidities impacted this encounter? (DM, HTN, Smoking, COPD, CAD, Cancer, CVA, ARF, Chemo, Hep., AIDS, mental health diagnosis, sleep apnea, morbid obesity)? @ -Sjogren's Was patient admitted / discharged? Hospital course, mention meds given and rou te, prescriptions, significant lab abnormalities, going to OR and other pertinent info. @ -Discharge patient's blood work is unremarkable. Patient does feel improved at this time. Patient is unable to provide stool sample. She states she's had salmonella in the past and had be treated for this. Patient was offered treatment. Patient complains. Patient will follow-up PCP return parameters were discussed. Undiagnosed new problem with uncertain prognosis? @ -No Drug Therapy requiring intensive monitoring for toxicity (Heparin, Nitro, Insulin, Cardizem)? @ -No Were any procedures done? @ -No Diagnosis/symptom? @ -Diarrhea, migraine Acute, or Chronic, or Acute on Chronic? @ -Acute Uncomplicated (without systemic symptoms) or Complicated (systemic symptoms)? @ -Uncomplicated Side effects of treatment? @ -No Exacerbation, Progression, or Severe Exacerbation? @ -No Poses a threat to life or bodily function? How? (Chest pain, USA, PA, pneumonia, PE, COPD, DKA, ARF, appy, cholecystitis, CVA, Diverticulitis, Homicidal, Suicidal, threat to staff... and all critical care pts) @ -No - Lab Data Result diagrams: 06/16/23 12:27 06/16/23 12:27 Lab Results 06/16/23 06/16/23 06/16/23 Range/Units 12:27 12:27 12:27 WBC 9.4 (3.8-10.6) k/uL RBC 4.73 (3.80-5.40) m/uL Hgb 14.7 (11.4-16.0) gm/dL Hct 44.2 (34.0-46.0) % MCV 93.5 (80.0-100.0) fL MCH 31.1 (25.0-35.0) pg MCHC 33.3 (31.0-37.0) g/dL RDW 12.3 (11.5-15.5) % Plt Count 260 (150-450) k/uL MPV 8.5 Neutrophils % 60 % Lymphocytes % 27 % Monocytes % 4 % Eosinophils % 8 % Basophils % 0 % Neutrophils # 5.6 (1.3-7.7) k/uL Lymphocytes # 2.6 (1.0-4.8) k/uL Monocytes # 0.4 (0-1.0) k/uL Eosinophils # 0.7 (0-0.7) k/uL Basophils # 0.0 (0-0.2) k/uL Sodium 137 (137-145) mmol/L Potassium 4.3 (3.5-5.1) mmol/L Chloride 109 H (98-107) mmol/L Carbon Dioxide 19 L (22-30) mmol/L Anion Gap 9 mmol/L BUN 8 (7-17) mg/dL Creatinine 0.78 (0.52-1.04) mg/dL Est GFR (CKD-EPI)AfAm >90 (>60 ml/min/1.73 sqM) Est GFR (CKD-EPI)NonAf >90 (>60 ml/min/1.73 sqM) Glucose 80 (74-99) mg/dL Calcium 9.7 (8.4-10.2) mg/dL Total Bilirubin 0.4 (0.2-1.3) mg/dL AST 23 (14-36) U/L ALT 13 (4-34) U/L Alkaline Phosphatase 74 (38-126) U/L Total Protein 7.2 (6.3-8.2) g/dL Albumin 4.1 (3.5-5.0) g/dL Lipase 98 (23-300) U/L Urine Color Colorless Urine Appearance Clear (Clear) Urine pH 7.0 (5.0-8.0) Ur Specific [place] 1.003 (1.001-1.035) Urine Protein Negative (Negative) Urine Glucose (UA) Negative (Negative) Urine Ketones Negative (Negative) Urine Blood Negative (Negative) Urine Nitrite Negative (Negative) Urine Bilirubin Negative (Negative) Urine Urobilinogen <2.0 (<2.0) mg/dL Ur Leukocyte Esterase Negative (Negative) Disposition Clinical Impression: Diarrhea, Migraine Disposition: HOME SELF-CARE Condition: Stable Instructions (If sedation given, give patient instructions): Acute Diarrhea (ED) Additional Instructions: Please return to the Emergency Department if symptoms worsen or any other concerns. Prescriptions: Ondansetron Odt [Zofran Odt] 4 mg PO Q8HR PRN #10 tab PRN Reason: Nausea Is patient prescribed a controlled substance at d/c from ED?: No Referrals: Rashi Hermosillo DO [Primary Care Provider] - 1-2 days Time of Disposition: 15:29
[2023-06-16] MEDS ORDERED: DIPHENOX-ATROP STARTER PACK 8 TAB BTL PO STA (15:26)
[2023-06-16] MEDS ORDERED: MORPHINE SULFATE 4 MG/ML SYRINGE IVP STA (15:27)
[2023-06-16 15:53] VITALS: BP 139/95; PULSE 63; TEMP 98
== END 2023-06-16 15:52 | disposition home or self-care (01) ==
LOC: EC 11:37
DX: R19.7 Diarrhea, unspecified (principal); G43.909 Migraine, unspecified, not intractable, without status migrainosus; J45.909 Unspecified asthma, uncomplicated; F41.9 Anxiety disorder, unspecified; F32.A Depression, unspecified; F17.200 Nicotine dependence, unspecified, uncomplicated; Z79.899 Other long term (current) drug therapy; Z88.2 Allergy status to sulfonamides; Z88.1 Allergy status to other antibiotic agents; Z90.49 Acquired absence of other specified parts of digestive tract
CPT/HCPCS: 36415; 80053; 83690; 85025; 81003; 99284; 96374; 96375 ×3; 96361 ×2; J2270; J1200; J2405; J1885

== ENCOUNTER 2023-06-29 16:55 | Emergency (ER) | payer OTHER ==
[2023-06-29 17:19] VITALS: TEMP 98.2
[2023-06-29 18:48] VITALS: RESP 18
[2023-06-29] MEDS ORDERED: SODIUM CHLORIDE 0.9% 1,000 ML IV STA (19:18)
--- NOTE | 2023-06-29 19:19 | ED ---
Chest Pain HPI - General Chief Complaint: Chest Pain Stated Complaint: Chest Pain,Nausea,Dizziness Time Seen by Provider: 06/29/23 18:43 Source: patient, RN notes reviewed, old records reviewed Mode of arrival: ambulatory Limitations: no limitations - History of Present Illness Initial Comments: This is a 37-year-old female coming in for significant chest pain that started today. He has persistent chest pain here in the ER with shortness of breath and dizziness. Patient is concern for PE does have strong history of heart disease and heart issues. Patient is no fever cough or congestion no current diaphoresis but she states she felt sweaty earlier. No recent travel history or sick contacts no prior history of PE. MD Complaint: chest pain, other (Shortness of breath) -: hour(s) Onset: during rest, during exertion Pain Location: substernal, left chest Pain Radiation: none Severity: moderate Severity scale (1-10): 6 Quality: tightness, sharp Consistency: constant Improves With: nothing Worsens With: nothing Anginal Symptoms: sense of impending doom Other Symptoms: palpitations Treatments Prior to Arrival: none - Related Data Home Medications Medication Instructions Recorded Confirmed Prochlorperazine [Compazine] 10 mg PO DAILY 09/10/18 05/11/23 Sertraline [Zoloft] 200 mg PO DAILY 03/07/20 05/11/23 Albuterol Sulfate [Proair Hfa] 2 puff INHALATION RT-Q6H PRN 02/20/21 05/11/23 Pregabalin [Lyrica] 150 mg PO BID 05/14/22 05/11/23 Previous Rx's Medication Instructions Recorded LORazepam [Ativan] 0.5 mg PO TID PRN #9 tab 05/11/23 Ondansetron Odt [Zofran Odt] 4 mg PO Q8HR PRN #10 tab 06/16/23 Allergies Allergy/AdvReac Type Severity Reaction Status Date / Time Sulfa (Sulfonamide Allergy Rash/Hives Verified 06/29/23 17:10 Antibiotics) metoclopramide [From Reglan] AdvReac agitation, Verified 06/29/23 17:10 restlessness Review of Systems ROS Statement: Those systems with pertinent positive or pertinent negative responses have been documented in the HPI. ROS Other: All systems not noted in ROS Statement are negative. Past Medical History Past Medical History: Asthma, Fibromyalgia, GERD/Reflux, Osteoarthritis (OA), Skin Disorder, Syncope Additional Past Medical History / Comment(s): Sjogren's syndrome. Past hx. ulcer. Chronic nausea. HX Kidney stones; ECZEMA. occasional dysphagia, see Dr. Babcock H & P History of Any Multi-Drug Resistant Organisms: MRSA Date of last positivie culture/infection: 2009 MDRO Source:: left forearm Past Surgical History: Section, Cholecystectomy, Hysterectomy, Tubal Ligation Additional Past Surgical History / Comment(s): C/Sx3, EGD, colonoscopy. HIATAL HERNIA REPAIR., tilt table test Past Anesthesia/Blood Transfusion Reactions: No Reported Reaction Additional Past Anesthesia/Blood Transfusion Reaction / Comment(s): STATES HAS VERY DIFFICULT TIME WITH PAIN CONTROL POST OP R/T AUTOIMMUNE DX, no problems w/blood transfusion in past Past Psychological History: Anxiety, Depression Smoking Status: Current every day smoker Past Alcohol Use History: None Reported Past Drug Use History: None Reported - Past Family History Mother Family Medical History: Deep Vein Thrombosis (DVT) Sister(s) Family Medical History: Asthma General Exam Limitations: no limitations General appearance: anxious Head exam: Present: atraumatic, normocephalic, normal inspection Eye exam: Present: normal appearance, PERRL, EOMI. Absent: scleral icterus, conjunctival injection, periorbital swelling ENT exam: Present: normal exam, mucous membranes moist Neck exam: Present: normal inspection. Absent: tenderness, meningismus, lymphadenopathy Respiratory exam: Present: normal lung sounds bilaterally. Absent: respiratory distress, wheezes, rales, rhonchi, stridor Cardiovascular Exam: Present: regular rate, normal rhythm, normal heart sounds. Absent: systolic murmur, diastolic murmur, rubs, gallop, clicks GI/Abdominal exam: Present: soft, normal bowel sounds. Absent: distended, tenderness, guarding, rebound, rigid Extremities exam: Present: normal inspection, full ROM, normal capillary refill. Absent: tenderness, pedal edema, joint swelling, calf tenderness Back exam: Present: normal inspection Neurological exam: Present: alert, oriented X3, CN II-XII intact Psychiatric exam: Present: normal affect, normal mood Skin exam: Present: warm, dry, intact, normal color. Absent: rash Course Vital Signs 06/29/23 06/29/23 06/29/23 17:08 18:35 21:20 Temperature 98.2 F Pulse Rate 96 80 76 Pulse Rate [ 81 Right Sitting Radial] Respiratory 16 18 18 Rate Blood Pressure 157/90 145/98 132/88 O2 Sat by Pulse 100 98 98 Oximetry - Reevaluation(s) Reevaluation #1: 06/29/23 Medical records reviewed Reevaluation #2: 06/29/23 Patient symptoms unchanged Reevaluation #3: 06/29/23 Patient informed results questions answered Studies Chest x-ray negative for acute disease interpreted by me CTA chest negative for acute disease interpreted by me Reevaluation #4: Was pt. sent in by a medical professional or institution (, PA, SUIT ATTENDANT, urgent care, hospital, or assisted...) When possible be specific @ -no Did you speak to anyone other than the patient for history (EMS, parent, family, police, friend...)? What history was obtained from this source @ -no Did you review nursing and triage notes (agree or disagree)? Why? @ -agree Are old charts reviewed (outside hosp., previous admission, EMS record, old EKG, old radiological studies, urgent care reports/EKG's, assisted records)? Report findings @ -yes Differential Diagnosis (chest pain, altered mental status, abdominal pain women, abdominal pain men, vaginal bleeding, weakness, fever, dyspnea, syncope, headache, dizziness, GI bleed, back pain, seizure, CVA, palpatations, mental health, musculoskeletal)? @ -prior EKG interpreted by me (3pts min.). @ -yes X-rays interpreted by me (1pt min.). @ -yes CT interpreted by me (1pt min.). @ -yes U/S interpreted by me (1pt. min.). @ -no What testing was considered but not performed or refused? (CT, X-rays, U/S, labs)? Why? @ -none What meds were considered but not given or refused? Why? @ -none Did you discuss the management of the patient with other professionals (professionals i.e. , CORRY, SUIT ATTENDANT, lab, RT, psych nurse, secondary social studies teacher, director of athletics, teacher, equal employment opportunity officer, case monitor)? Give summary @ -no Was smoking cessation discussed for >3mins.? @ -no Was critical care preformed (if so, how long)? @ -no Were there social determinants of health that impacted care today? How? (Homelessness, low income, unemployed, alcoholism, drug addiction, transportation, low edu. Level, literacy, decrease access to med. care, halfway, rehab)? @ -none Was there de-escalation of care discussed even if they declined (Discuss DNR or withdrawal of care, Hospice)? DNR status @ -no What co-morbidities impacted this encounter? (DM, HTN, Smoking, COPD, CAD, Cancer, CVA, ARF, Chemo, Hep., AIDS, mental health diagnosis, sleep apnea, morbid obesity)? @ -none Was patient admitted / discharged? Hospital course, mention meds given and route, prescriptions, significant lab abnormalities, going to OR and other pertinent info. @ - 37 female to the emergency department tonight for evaluation of chest pain with history of heart disease. Patient concern for PE CT is negative for PE here in the ER, patient symptoms are improving she can be discharged home Discharge Undiagnosed new problem with uncertain prognosis? @ -no Drug Therapy requiring intensive monitoring for toxicity (Heparin, Nitro, Insulin, Cardizem)? @ -no Were any procedures done? @ -no Diagnosis/symptom? @ -Chest pain Acute, or Chronic, or Acute on Chronic? @ -Acute Uncomplicated (without systemic symptoms) or Complicated (systemic symptoms)? @ -Complicated Side effects of treatment? @ -no Exacerbation, Progression, or Severe Exacerbation? @ -exacerbation Poses a threat to life or bodily function? How? (Chest pain, [place], [place], pneumonia, PE, COPD, DKA, ARF, appy, cholecystitis, CVA, Diverticulitis, Homicidal, Suicidal, threat to staff... and all critical care pts) @ -yes with chest pain or possible PE Reevaluation #5: Differential Chest Pain: Stable Angina, Unstable Angina, STEMI, NSTEMI Aortic Dissection, Pneumothorax, Musculoskeletal, Esophageal Spasm GERD, Cholecystitis, Pancreatitis, Zoster, this is not meant to be an all-inclusive list. Chest Pain MDM - MDM 37 female to the emergency department tonight for evaluation of chest pain with history of heart disease. Patient concern for PE CT is negative for PE here in the ER, patient symptoms are improving she can be discharged home Disposition Clinical Impression: Chest pain, Atypical chest pain Disposition: HOME SELF-CARE Condition: Fair Is patient prescribed a controlled substance at d/c from ED?: No Referrals: Rashi Hermosillo DO [Primary Care Provider] - 1-2 days Time of Disposition: 20:45
--- NOTE | 2023-06-29 20:01 | XR ---
EXAMINATION TYPE: XR chest 2V DATE OF EXAM: 06/29/2023 7:36 PM CLINICAL INDICATION:Female, 37 years old with history of Chest Pain; [facility] COMPARISON: Chest radiographs from 05/11/2023 TECHNIQUE: XR chest 2V Frontal and lateral views of the chest. FINDINGS: Lungs/Pleura: There is flattening of the diaphragm with increased lucency of the lungs. No evidence o f pneumothorax, pleural effusion or focal consolidation. Pulmonary vascularity: Unremarkable. Heart/mediastinum: Cardiomediastinal silhouette is unremarkable. A loop recorder projects over the le ft thorax over the heart. Musculoskeletal: No acute osseous pathology. Other findings: None Lines/Tubes: IMPRESSION: Cardiomegaly and mild pulmonary vascular congestion. Correlate with BNP for congestive heart failure.
[2023-06-29 20:02] LABS: Basophils # (A) 0.1 k/uL (0-0.2); Basophils % (A) 0 %; Eosinophils # (A) 0.7 k/uL (0-0.7); Eosinophils % (A) 6 %; Lymphocytes # (A) 3.4 k/uL (1.0-4.8); Lymphocytes % (A) 30 %; MCH 31.5 pg (25.0-35.0); MCHC 34.2 g/dL (31.0-37.0); MCV 92.3 fL (80.0-100.0); Mean Platelet Volume 8.2; Monocytes # (A) 0.5 k/uL (0-1.0); Monocytes % (A) 4 %; Neutrophils # (A) 6.6 k/uL (1.3-7.7); Neutrophils % (A) 58 %; Platelet Count 228 k/uL (150-450); RBC 4.77 m/uL (3.80-5.40); RDW 12.3 % (11.5-15.5); WBC 11.3 k/uL (3.8-10.6)
[2023-06-29 20:11] LABS: ALT 12 U/L (4-34); AST 21 U/L (14-36); African American GFR (CKD) >90 (>60 ml/min/1.73 sqM); Albumin 4.5 g/dL (3.5-5.0); Alkaline Phosphatase 64 U/L (38-126); Anion Gap 13 mmol/L; Blood Urea Nitrogen 15 mg/dL (7-17); Carbon Dioxide 18 mmol/L (22-30); Chloride 108 mmol/L (98-107); Glucose 82 mg/dL (74-99); Lipase 184 U/L (23-300); Magnesium 1.8 mg/dL (1.6-2.3); Non-African American GFR(CKD) >90 (>60 ml/min/1.73 sqM); Potassium 4.3 mmol/L (3.5-5.1); Sodium 139 mmol/L (137-145); Total Bilirubin 0.3 mg/dL (0.2-1.3); Total Protein 7.6 g/dL (6.3-8.2)
[2023-06-29 20:19] LABS: NT-Pro-B-Type Natriuretic Pept 51 pg/mL
[2023-06-29 20:22] LABS: INR 0.9 (<1.2); Prothrombin Time 9.5 sec (9.0-12.0)
--- NOTE | 2023-06-29 20:41 | CT ---
EXAMINATION TYPE: CT angio chest CT DLP: 332.1 mGycm, Automated exposure control for dose reduction was used. DATE OF EXAM: 06/29/2023 8:05 PM COMPARISON: Chest radiograph same day. CLINICAL INDICATION:Female, 37 years old with history of pe; Shortness of breath x 12 hours, history of asthma TECHNIQUE/CONTRAST: CTA scan of the thorax is performed with IV Contrast, patient injected with 100 cc mL of Isovue 370, MIP images are created and reviewed these are created on a separate workstation.. FINDINGS: Pulmonary Artery: There is no evidence for a filling defect within the pulmonary vasculature to sugge st acute pulmonary embolism. The pulmonary artery is of normal size. Lungs/Pleura: No evidence of focal consolidation, pleural effusion or pneumothorax. No pulmonary vasc ular congestion. Airway: Large airways are patent. Heart: Heart is within normal limits for size. Vasculature: No evidence of aortic aneurysm. Mediastinum: No gross evidence of adenopathy. Musculoskeletal: No acute osseous abnormalities Soft Tissues: Unremarkable. Lower neck: No significant findings. Upper Abdomen: No significant findings. IMPRESSION: 1. No evidence of pulmonary embolism. 2. There is no cardiomegaly or congestive heart failure. Please see addendum from chest radiograph sa me day. No acute thoracic process.
[2023-06-29] MEDS ORDERED: IBUPROFEN 600 MG TAB PO STA (20:47)
[2023-06-29 21:33] VITALS: BP 132/88; PULSE 76
== END 2023-06-29 21:33 | disposition home or self-care (01) ==
LOC: EC 16:55
DX: R07.89 Other chest pain (principal); J45.909 Unspecified asthma, uncomplicated; M19.90 Unspecified osteoarthritis, unspecified site; F32.A Depression, unspecified; F41.9 Anxiety disorder, unspecified; F17.200 Nicotine dependence, unspecified, uncomplicated; Z88.2 Allergy status to sulfonamides; Z88.8 Allergy status to other drugs, medicaments and biological substances; Z79.899 Other long term (current) drug therapy
CPT/HCPCS: 36415; 93005; 85379; 83880; 80053; 83690; 83735; 84484; 85025; 85610; 85730; 71046; 71275; 99285; 96360; 96361; Q9967

== ENCOUNTER → 2023-11-05 | Outpatient (CLI) | payer OTHER ==
--- NOTE | 2023-11-05 14:07 | P.SLEEP ---
History of Present Illness DATE: 11/05/2023 CONSULTATION/NEW PATIENT EVALUATION HISTORY OF PRESENT ILLNESS/SLEEP-WAKE EVALUATION: 38-year-old lady had been ev aluated in the sleep center for possible obstructive sleep apnea hypopnea syndrome and extremely severe sleepiness. SLEEP SCHEDULE: Usually sleep schedule from 8:30 PM to 6:30 AM on weekdays and until 9 AM on weekend. FALLING ASLEEP: No problems with falling asleep. DURING SLEEP: Patient has loud snoring, awakenings from sleep up to 3 times with nocturia, dry mouth, gasping for air, restless leg symptoms, panic attacks, palpitations, sleep talking, sweating and heartburn. Positive history of hypnogogical hallucinations, sleep off paralysis and possible cataplexy. DURING THE DAY/WAKE STATE: In the morning patient wake up tired, has difficulties to play attention, falling asleep during the day, has problems with memory, concentration, irritability, depression, anxiety, claustrophobia. Positive history of possible cataplexy on stroke emotions. Adel sleepiness scale is extremely high 18. Patient takes nap at 2 PM. Patient may C vivid dreams during naps, but does not feel refreshed after nap. PAST MEDICAL HISTORY: ADHD, migraines, peripheral neuropathy, asthma, fibromyalgia. PAST SURGICAL HISTORY: Hysterectomy, cholecystectomy, C-sections 2, hiatal hernia repair. MEDICATIONS: Zoloft 20 mg once a day, Ventolin as needed, ativan 0.5 mg at nighttime, Lyrica 150 mg once a day. SOCIAL HISTORY: Positive for smoking for 22 years about half pack a day, alcohol consumption occasional. FAMILY HISTORY: Hypertension, cancer, sleep apnea, anemia, mental illness, restless leg symptoms. REVIEW OF SYSTEMS: Snoring, multiple awakenings from sleep, episodes of sleep off paralysis, episodes of possible cataplexy, significant excessive daytime sleepiness, jerking movements during the sleep. No fevers. No double vision. No recent chest pain. No shortness of breath. No abdominal pain. No bleeding episodes. No blood in urine. No seizure episodes. PHYSICAL EXAMINATION: GENERAL: A pleasant patient without any distress. VITAL SIGNS: BP 128/87, HR 90, RR 18, weight 193.6 pounds, height 5 foot 6-3/4 inches, body mass index 30.5. HEENT: PERRLA, EOMI. Evaluation of oropharynx showed tongue protrudes midline, low position of soft palate Mallampati 23, short distance between soft palate and posterior pharyngeal wall, retrognathia 2 mm. NECK: Supple. No JVD. Thyroid is not palpable. 15 inches in circumference. LUNGS: Clear to percussion and to auscultation. Good air exchange. No wheezing or rhonchi. HEART: S1, S2 regular. No murmurs, gallops or rubs. ABDOMEN: Soft and nontender. Bowel sounds are present. No organomegaly appreciated. EXTREMITIES: No clubbing or cyanosis. PARKING METER ATTENDANT: Awake, alert, and oriented x3. Cranial nerves 2 to 7 intact. There is no fasciculation or atrophy noted. No focal deficits observed. ASSESSMENT: 1. Loud snoring, multiple awakenings from sleep with episodes of gasping for air, small oropharyngeal airspace, retrognathia, significant sleepiness. Obstructive sleep apnea hypopnea syndrome. 2. Positive history of possible hyper logical hallucinations, cataplexy, episodes of sleep paralysis, extremely high sleepiness with Adel Sleepiness Scale 18. Differential diagnosis include narcolepsy type I. 3. History of ADHD. 4. Migraines. 5 possible periodic limb movements. 6 . Restless leg symptoms. 7. History of peripheral neuropathy. 8. History of fibromyalgia. 9 . Status post hysterectomy. 10. Status post cholecystectomy. 11. Migraines with changing of visual martinez. PLAN: 1. Polysomnography for evaluation of patient's breathing during sleep and to check for periodic limb movements. Multiple sleep latency test if sleep study will be negative for obstructive sleep apnea hypopnea syndrome. 2. Following plan after eating sleep study 3. Preferable position during sleep on the side. 4. No driving if patient feels any sleepiness. Patient is aware of civil and criminal liability for unsafe driving. Presently patient does not drive because of sleepiness problems. 5. Sleep hygiene with regular sleep time for at least 7.5-8 hours. 6. Watching weight. Thank you very much for referring this patient for consultation. Sincerely, Gregg Gil MD, PhD, FAASM. Diplomat of [place] [employer], Sleep Medicine Board by [place] [employer] [place] [employer] Professor of [facility] [place] Past Medical History Past Medical History: Asthma, Fibromyalgia, GERD/Reflux, Osteoarthritis (OA), Skin Disorder, Syncope Additional Past Medical History / Comment(s): Sjogren's syndrome. Past hx. ulcer. Chronic nausea. HX Kidney stones; ECZEMA. occasional dysphagia, see Dr. Babcock H & P History of Any Multi-Drug Resistant Organisms: MRSA Date of last positivie culture/infection: 2009 MDRO Source:: left forearm Past Surgical History: Section, Cholecystectomy, Hysterectomy, Tubal Ligation Additional Past Surgical History / Comment(s): C/Sx3, EGD, colonoscopy. HIATAL HERNIA REPAIR., tilt table test Past Anesthesia/Blood Transfusion Reactions: No Reported Reaction Additional Past Anesthesia/Blood Transfusion Reaction / Comment(s): STATES HAS VERY DIFFICULT TIME WITH PAIN CONTROL POST OP R/T AUTOIMMUNE DX, no problems w/blood transfusion in past Past Psychological History: Anxiety, Depression Smoking Status: Current every day smoker Past Alcohol Use History: None Reported Past Drug Use History: None Reported - Past Family History Mother Family Medical History: Deep Vein Thrombosis (DVT) Sister(s) Family Medical History: Asthma Medications and Allergies Home Medications Medication Instructions Recorded Confirmed Type Prochlorperazine [Compazine] 10 mg PO DAILY 09/10/18 05/11/23 History Sertraline [Zoloft] 200 mg PO DAILY 03/07/20 05/11/23 History Albuterol Sulfate [Proair Hfa] 2 puff INHALATION RT-Q6H PRN 02/20/21 05/11/23 History Pregabalin [Lyrica] 150 mg PO BID 05/14/22 05/11/23 History LORazepam [Ativan] 0.5 mg PO TID PRN #9 tab 05/11/23 Rx Ondansetron Odt [Zofran Odt] 4 mg PO Q8HR PRN #10 tab 06/16/23 Rx Allergies Allergy/AdvReac Type Severity Reaction Status Date / Time Sulfa (Sulfonamide Allergy Rash/Hives Verified 06/29/23 17:10 Antibiotics) metoclopramide [From Reglan] AdvReac agitation, Verified 06/29/23 17:10 restlessness Sleep Note - Sleep Note Sleep Note: Temperature: Pulse Rate: Respiratory Rate: Blood Pressure: SpO2: Height: Weight: BMI: Neck Circumference:
== END ==
LOC: 3 N SLEEP 13:18
PROVIDERS: ATTEND Internal Medicine
DX: G47.33 Obstructive sleep apnea (adult) (pediatric) (principal); M26.19 Other specified anomalies of jaw-cranial base relationship; G43.909 Migraine, unspecified, not intractable, without status migrainosus; F90.9 Attention-deficit hyperactivity disorder, unspecified type; G25.81 Restless legs syndrome; J45.909 Unspecified asthma, uncomplicated; F17.200 Nicotine dependence, unspecified, uncomplicated; G62.9 Polyneuropathy, unspecified; Z87.39 Personal history of other diseases of the musculoskeletal system and connective tissue; Z90.710 Acquired absence of both cervix and uterus; Z90.49 Acquired absence of other specified parts of digestive tract; Z98.890 Other specified postprocedural states; Z88.2 Allergy status to sulfonamides; Z88.8 Allergy status to other drugs, medicaments and biological substances; Z79.899 Other long term (current) drug therapy
CPT/HCPCS: 99211

== ENCOUNTER 2023-12-10 19:53 | Outpatient (CLI) | payer OTHER ==
[2023-12-11 18:17] LABS: Urine Alcohol Negative (Negative); Urine Barbiturate Negative (Negative); Urine Cocaine Negative (Negative); Urine Methadone Negative (Negative); Urine Opiates Negative (Negative); Urine Phencyclidine Negative (Negative)
--- NOTE | 2023-12-16 14:52 | P.PCN ---
Description of Procedure: POLYSOMNOGRAPHY REPORT PROCEDURE(S)/DATE(S): Polysomnography 12/10/2023 CLINICAL: Patient has been seen in the sleep center for evaluation of obstructive sleep apnea-hypopnea syndrome. Please see my consultation. Sleep study has been done for evaluation of patient breathing during the sleep. PROCEDURE: The standard montage for clinical polysomnography included the electroencephalogram, the electrooculogram, the mentalis surface electromyography and Lead II cardiography. The respiratory battery consisted of measurements of nasal/buccal air flow, pressure transducer measurements from nose, thoracic and/or abdominal effort and intercostal surface electromyography. Video monitoring has been done to check for any parasomnia events. Nocturnal oxyhemoglobin saturations were obtained by finger oximetry. Step-camara titration with positive airway pressure was utilized to control the respiratory events, if necessary. RESULTS: During the diagnostic sleep study sleep efficiency was normal at 90.4%. Latency to sleep onset was normal 20.0 min. Sleep architecture showed stage NI was short 1.0%, Delta sleep was normal 16.7%, REM sleep was in high range 27.5%. Respiratory channel showed 0 obstructive apneas, 0 mixed apneas, 1 central apneas, 0 hypopneas with lowest oxygen level 93%. Total apnea hypopnea index was 0.1. Heart rate was in the range between 76 and 82, average 79. EMG showed 0 periodic limb movements per hour with 0 micro-arousals per hour. IMPRESSIONS: 1. No significant respiratory abnormalities have been documented during the sleep study, normal oxygenation during sleep. 2. No significant periodic limb movements have been documented. 3. Loud snoring have been documented 4. Patient presents with symptoms of extremely high excessive daytime sleepiness, possible cataplexy and vivid dreams during naps. Differential diagnosis include narcolepsy. Please see other impressions from consultation PLAN: 1. Multiple sleep latency test for objective evaluation symptoms of significant excessive daytime sleepiness for differential diagnosis with possible narcolepsy. 2. Watching weight. 3. Sleep hygiene with regular time in bed for at least 7-1/2 hours. 4. No driving if feeling sleepiness. 5. Patient may consider evaluation by ear nose and throat physician for treatment of snoring. Thank you very much for allowing me to participate in the management of your patient. Sincerely, Gregg Gil MD, PhD, FAASM. Diplomat of [place] [employer], Sleep Medicine Board by [place] [employer] Sand Hauler of [facility] [place]
== END 2023-12-11 11:45 | disposition left against medical advice (07) ==
LOC: 3 N SLEEP 19:53
PROVIDERS: ATTEND Internal Medicine
DX: G47.33 Obstructive sleep apnea (adult) (pediatric) (principal); G47.61 Periodic limb movement disorder; R06.83 Snoring; F17.200 Nicotine dependence, unspecified, uncomplicated; G47.419 Narcolepsy without cataplexy; Z88.2 Allergy status to sulfonamides; Z88.8 Allergy status to other drugs, medicaments and biological substances
CPT/HCPCS: 80306; 95810